=== PATIENT | female | born 1980 | race Caucasian/White ===

== ENCOUNTER 2021-06-30 12:26 | Outpatient (REF) | payer MEDICAID, SELFPAY ==
--- NOTE | 2021-07-06 12:53 | MHC.AU.ANO ---
Adult Audiological Evaluation Date of Visit: 06/30/21 Manager Security And Safety Used: Not Applicable Reason for Appointment: Referred for audiologic evaluation due to left ear tinnitus. Omaira reports a pulsatile like sound in the left ear which came on suddenly about 2 months ago and she intermittently hears a buzzing in the ear. She also sometimes feels a blocked sensation in the left ear and the right ear sound quality is reported to be clearer compared to the left. There is a history of ear infections as a child with one tympanic membrane perforated from a Q-tip when younger; however, Omaira does not remember which ear. Does patient feel they have a hearing loss?: Unsure If Yes, Which Ear?: Left Ear When Was Hearing Difficulty First Noticed?: Approximately 2 months ago. Has hearing been tested previously?: No Hearing Handicap Inventory: HHIE SCORE: 0 Based on HHIE score, patient has: No perceived hearing handicap Ear History: Recent Ear Drainage: As a child when tympanic membrane was perforated Family History of Hearing Loss?: Yes: Mother wears hearing aids Ear Infections in Childhood: Both Ears Bothersome Tinnitus/Ringing/Noises in Ears: Left Ear Ear used on the phone: Right Blocked/Full Sensation in Ear(s): Left Ear History of occupational noise exposure?: Occasional loud music History: History: No Medical History: Medical History: Fibromyalgia, Depression, Anxiety, Uterine Leiomyoma, History of Vitamin D Deficiency Medication List: Trazadone, Valacyclovir, Indomethacin, Pantoprazole sodium, Vitamin D2, Cyclobenzaprine, Duloxetine, Finasteride, Clotrimazole/Betamethasone dip, Lorazepam, Elocon Otoscopy: Right Ear: Unremarkable Left Ear: Mild scarring of the tympanic membrane Tympanometry: Tympanometry performed due to: To assess integrity of the middle ear system Right Ear: Normal Middle Ear System (Type A) Left Ear: Normal Middle Ear System (Type A) Otoacoustic Emissions Frequency Range Used: 1.6-8 kHz Right Ear Results: Present 1600, 2000, & 4000 Hz Reduced 3000 & 8000. Analysis: Present emissions suggest normal cochlear function Reduced/Absent emissions suggest cochlear dysfunction Left Ear Results: Present 1600, 2000, 0134-1764 Hz Reduced 3000 Hz. Analysis: Present emissions suggest normal cochlear function Reduced/Absent emissions suggest cochlear dysfunction Hearing Evaluation: Transducer(s) Used: Insert Earphones Bone Conduction Method: Conventional Audiometry Stimuli Used: Pure Tones Right Ear: Description of Hearing: Normal hearing thresholds 250-1000 Hz and 0028-8258 Hz with mild sensorineural hearing loss at 9901-2667 Hz. Left Ear: Description of Hearing: Normal hearing levels 250-1000 Hz and 0160-5886 Hz with mild sensorineural hearing loss at 2000 and 3000 Hz. Speech Recognition Threshold (SRT): Method Used: Monitored Live Voice Stimuli Used: Right Ear: 10 dB HL Left Ear: 10 dB HL Word Discrimination: Method: Recorded Lists Word Lists Used: NU-6 Right Ear: 92% at 50 dB HL Left Ear: 92% at 50 dB HL Interpretation of Results: There is a slightly notched configuration of the mild loss at 2000 and 3000 Hz. Discussed how this configuration may relate to hereditary factors given her mother's hearing loss or noise exposure. The muffled sound/blocked sensation of the left ear may relate to the scarring of the tympanic membrane. Discussed the theories of tinnitus and how this symptom increases with noise exposure, chronic pain, stress, and anxiety. Considered ENT consultation; however, since the loss is very mild and Omaira reports it is noticeable, but not causing her to have any difficulty functioning, it was decided to monitor hearing and symptoms with re-evaluation scheduled for 6 months. Recommendations: Audiologic re-evaluation is scheduled for 12/29/2021. If symptoms increase before that time, an earlier appointment should be scheduled and will likely advise medical consultation with an Nylon Mender. Diagnosis: Primary Diagnosis: H93.12 Tinnitus, Left Ear Secondary Diagnosis: H90.3 Bilateral Sensorineural Hearing Loss Services Performed: Comprehensive Audiological Evaluation (CPT 50276) Diagnostic Otoacoustic Emissions (CPT 32170, 26+TC) Tympanometry (CPT 17893) Signature: Provider: Pteer Sage, [facility]
== END 2021-06-30 12:27 | disposition home or self-care (01) ==
LOC: HO.SH 12:26
PROVIDERS: Visit Provider Internal Medicine Geriatric Medicine
DX: H93.12 Tinnitus, left ear (principal); H90.3 Sensorineural hearing loss, bilateral
CPT/HCPCS: 92557; 92567; 92588

== ENCOUNTER 2021-09-06 11:07 | Outpatient (REF) | payer MEDICAID, SELFPAY ==
--- NOTE | ~2021-09-06 | US_ITS ---
EXAMINATION: US ABDOMEN COMPLETE CLINICAL INFORMATION: Abdominal pain, satiety. COMPARISON: Abdominal ultrasound 02/05/2016 TECHNIQUE: Real-time imaging of the abdominal viscera. FINDINGS: PANCREAS: The visualized pancreas is normal in appearance. The tail is obscured by overlying bowel gas. ABDOMINAL AORTA: Visualized aorta is normal in appearance. INFERIOR VENA CAVA: Visualized portions are normal. LIVER: The liver is mildly enlarged, measuring 19.3 cm in length. It has increased echogenicity. The liver contour is normal. No focal hepatic lesion. There is no intrahepatic biliary duct dilatation seen. GALLBLADDER: The gallbladder is physiologically distended without evidence of stones, sludge, polyps, wall thickening or pericholecystic fluid. COMMON BILE DUCT: Normal in caliber measuring 0.5 cm in diameter. RIGHT KIDNEY: No hydronephrosis. No renal calculi or focal parenchymal lesions. The kidney measures 12.8 cm in maximum dimension. LEFT KIDNEY: No hydronephrosis. No renal calculi or focal parenchymal lesions. The kidney measures 11.1 cm in maximum dimension. SPLEEN: The spleen measures 10.8 cm in maximum dimension. FREE FLUID: None. US/US abdomen complete IMPRESSION: The liver is mildly enlarged and demonstrates increased echogenicity. This may reflect some degree of fatty infiltration. No focal hepatic lesion.
== END 2021-09-06 11:08 | disposition home or self-care (01) ==
LOC: HO.US 11:07
PROVIDERS: PCP Internal Medicine Geriatric Medicine; Visit Provider Internal Medicine Geriatric Medicine
DX: R10.84 Generalized abdominal pain (principal); R68.81 Early satiety
CPT/HCPCS: 76700

== ENCOUNTER 2023-02-08 14:44 | Outpatient (REF) | payer MEDICAID, SELFPAY ==
--- NOTE | ~2023-02-08 | US_ITS ---
EXAMINATION: US SOFT TISSUE HEAD/NECK CLINICAL INFORMATION: Left neck mass. COMPARISON: None available. TECHNIQUE: Linear transducer grayscale and color Doppler examination of the left lateral posterior neck. FINDINGS: Palpable abnormality corresponds to a normal-appearing left cervical lymph node. This measures 1 x 0.4 x 1 cm in sagittal AP and transverse dimension. This demonstrates normal ultrasound morphology and flow. US/US soft tiss head and/or neck IMPRESSION: Palpable abnormality corresponds to a normal-appearing left cervical lymph node.
== END 2023-02-08 14:45 | disposition home or self-care (01) ==
LOC: HO.US 14:44
PROVIDERS: PCP Internal Medicine Geriatric Medicine; Visit Provider Internal Medicine Geriatric Medicine
DX: R22.1 Localized swelling, mass and lump, neck (principal)
CPT/HCPCS: 76536

== ENCOUNTER 2023-07-05 12:10 | Outpatient (REF) | payer MEDICAID, SELFPAY ==
[2023-07-05 13:36] LABS: MANUAL DIFF FLAG NO
[2023-07-05 13:43] LABS: Basophils Percent Auto 0.6 % (0-2); Eosinophils Absolute Auto 0.1 X10*3/uL (0.0-0.4); Eosinophils Percent Auto 1.3 % (0-4); Hemoglobin 12.6 g/dl (12.0-16.0); Imm Gran Abs Auto 0.01 X10*3/uL (0.00-0.03); Imm Gran Pct Auto 0.1 % (0.0-0.4); Lymphocytes Absolute Auto 2.1 X10*3/uL (1.2-4.9); Lymphocytes Percent Auto 31.7 % (20-40); Mean Corpuscular HGB Conc 34.1 g/dl (31.0-35.0); Mean Corpuscular Hemoglobin 29.4 pg (27.0-33.0); Mean Corpuscular Volume 86.2 fL (80.0-98.0); Mean Platelet Volume 10.5 fL (9.4-12.3); Monocytes Absolute Auto 0.5 X10*3/uL (0.1-1.2); Monocytes Percent Auto 7.4 % (2-11); Neutrophils Percent Auto 58.9 % (45-73); Platelet Count 244 X10*3/uL (160-400); Red Blood Count 4.29 X10*6/uL (4.20-5.50); Red Cell Distribution Width 12.9 % (11.0-16.0); White Blood Count 6.7 X10*3/uL (4.8-10.8)
[2023-07-05 14:47] LABS: Iron 131 mcg/dL (30-160); Percent Iron Saturation 36 % (15-50); Total Iron Binding Capacity 366 mcg/dL (228-428); Unsaturated Iron Binding 235 ug/dL
[2023-07-05 14:54] LABS: Vitamin D 25-OH Total 27.2 ng/mL (>30)
== END 2023-07-05 12:11 | disposition home or self-care (01) ==
LOC: HO.HHCL 12:10
PROVIDERS: Visit Provider Internal Medicine Geriatric Medicine
DX: D50.0 Iron deficiency anemia secondary to blood loss (chronic) (principal); E55.9 Vitamin D deficiency, unspecified
CPT/HCPCS: 36415; 82306; 83540; 85025

== ENCOUNTER 2023-11-28 12:51 | Outpatient (REF) | payer MEDICAID, SELFPAY ==
--- NOTE | ~2023-11-28 | XR_ITS ---
EXAMINATION: XR HIP, LEFT CLINICAL INFORMATION: Fell down one month ago, left hip injury and persistent pain COMPARISON: None available. TECHNIQUE: Two views of the left hip. FINDINGS: BONES: Bony structures are intact. There is no focal bone destruction or periosteal reaction seen. JOINTS: Alignment of hip joint is normal. SOFT TISSUE: Soft tissue is normal. No radiopaque foreign body or abnormal air collection is seen. XR/XR hip LT min 2V IMPRESSION: Normal x-ray of left hip. No fracture or dislocation or signs of avascular necrosis are seen.
== END 2023-11-28 12:52 | disposition home or self-care (01) ==
LOC: HO.HHCX 12:51
PROVIDERS: Visit Provider Internal Medicine Geriatric Medicine
DX: M25.552 Pain in left hip (principal); Z91.81 History of falling
CPT/HCPCS: 73502

== ENCOUNTER 2024-05-31 15:05 | Outpatient (REF) | payer MEDICAID, SELFPAY ==
--- NOTE | ~2024-05-31 | XR_ITS ---
EXAMINATION: XR KNEE, LEFT CLINICAL INFORMATION: Medial pain left knee. Pes bursitis suspected. COMPARISON: 03/31/2020. TECHNIQUE: Four views of the left knee. FINDINGS: No fracture, dislocation, or suspicious bone abnormalities. Joint spaces in the medial, lateral, and patellofemoral compartment are preserved. No significant arthritis. Patella normally aligned. Region of the medial tibia appears normal. No joint effusion. Normal soft tissues. XR/XR knee LT 4V IMPRESSION: Normal left knee. Electronically signed by: Quinten Davison MD 05/31/2024 04:12 PM EDT
[2024-06-01 08:43] LABS: Follicle Stimulating Hormone 3.6 mIU/mL; Lutenizing Hormone 1.8 mIU/mL
== END 2024-05-31 15:06 | disposition home or self-care (01) ==
LOC: HO.HHCL 15:05
PROVIDERS: Visit Provider Internal Medicine Geriatric Medicine
DX: N95.1 Menopausal and female climacteric states (principal); M70.52 Other bursitis of knee, left knee
CPT/HCPCS: 36415; 73564; 83001; 83002

== ENCOUNTER → 2024-05-31 15:19 | Outpatient (BNV) | payer MEDICAID, SELFPAY | PROVIDERS: Visit Provider Radiology Diagnostic Radiology | DX: M70.52 Other bursitis of knee, left knee (principal) | CPT/HCPCS: 73564 ==

== ENCOUNTER 2024-10-09 12:09 | Outpatient (REF) | payer MEDICAID, SELFPAY ==
--- NOTE | ~2024-10-09 | US_ITS ---
EXAMINATION: MM DIAGNOSTIC DIGITAL BREAST TOMOSYNTHESIS, BILATERAL Bilateral Limited axilla ultrasound. CLINICAL INFORMATION: Bilateral axillary lumps. COMPARISON: Mammography: Comparison is made with relevant prior exams. TECHNIQUE: Digital breast mammography with tomosynthesis is performed in both the craniocaudal and mediolateral oblique views along with computer-aided detection (CAD). Limited bilateral axillary ultrasound. FINDINGS: There are scattered areas of fibroglandular density (ACR BI-RADS breast composition Category b). Bilateral reduction mammoplasty. BB markers in the bilateral axillary regions at site of palpable lumps without underlying abnormality. There are no significant masses, abnormal calcifications, or other abnormalities. Targeted color Doppler ultrasound scanning in the bilateral axillary regions area of patient's palpable lumps demonstrates normal axillary tissue. There is no sonographic abnormality. Results are provided to the patient at time of visit by the technologist. US/US breast BI limited mamm only IMPRESSION: No mammographic or sonographic abnormality to account for the patient's bilateral axillary palpable lumps. Recommend clinical evaluation and follow-up. ASSESSMENT: BI-RADS BI-RADS 1 - Negative RECOMMENDATION: 1 year F/U This patient's information was entered into a reminder system with a target due date for their next mammogram. Electronically signed by: Naomie Barnard DO 10/09/2024 01:47 PM [facility]
--- OUTSIDE RECORDS SUMMARY | 2024-10-09 14:31 | XMS_ITS | Encounter Summary ---
Author Organization [employer] Address [address] [place] [address] Care Team Providers Care Production Packager Name Role Phone Name, Tay DUARTE Primary Care Provider [phone] Reason for Visit * Reason Comments Med Refill Encounter Details Date Type Department Care Team ([facility] st Contact Info) Description 10/18/2023 Refill [facility] [address], [place] [id number] Name, MD Tay [address] [place] [address] Social History Tobacco Use Types Packs/Day Years Used Date Smoking Tobacco: Never Passive Smoke Exposure: Never Smokeless Tobacco: Never Alcohol Use Standard Drinks/Week Comments Yes 2 (1 standard drink = 0.6 oz pur e alcohol) Housing Stability Answer Date Recorded What is your housing situation today? I have demetrius jason 06/27/[address] you li ve. Do you have problems with any of the following? None of the above 06/27/2023 Food Insecurity Answer Date Recorded Within the past 12 months, y ou worried that your food would run out before you got money to buy more: Never True 06/27/2023 Within the past 12 months,th e food you bought just didn't last and you didn't have enough money to get more: Never True Transportation Answer Date Recorded In the past 12 months, has l ack of transportation kept you from medical appts, meetings, work or from getting things needed for daily living? No 06/27/2023 Utilities Answer Date Recorded In the past 12 months, has t he electric, gas, oil or water company threatened to shut off services in your home? No 06/27/2023 Depression Answer Date Recorded Patient Health Questionnaire-2 Score 0 10/27/2022 Comments Unknown Sex and Gender Information Value Date Recorded Sex Assigned at Female 07/11/2022 10:23 AM EDT Legal Sex Female 10:23 AM EDT Gender Identity Female 07/11/2022 10:23 AM EDT Sexual Orientation Straight 07/11/2022 10 :23 AM EDT documented as of this encounter Plan of Treatment Upcoming Encounters Date Type Department Care Team (Late st Contact Info) Description 12/13/2024 4:00 PM EDT Office Visit [facility] [address] [place] [address] Name, MD Tay [address] [place] [address] documented as of this encounter Visit Diagnoses Not on filedocumented in this encounter Care Teams Production Packager Relationship Specialty Start Date End Date NameTay MD [address] [place] [id number] PCP - General Family Medicine 02/01/16 documented as of this encounter
--- OUTSIDE RECORDS SUMMARY | 2024-10-09 14:31 | XMS_ITS | Encounter Summary ---
Author Organization [employer] Address [address] [place] [address] Care Team Providers Care Greenstone Polisher Operator Name Role Phone Name, Tay DUARTE Primary Care Provider [phone] Reason for Visit * Reason Onset Date Comments Med Change Request 10/18/2023 Encounter Details Date Type Department Care Team ([facility] st Contact Info) Description 10/18/2023 Telephone [facility] [address] [place] [address] Name, MD Tay [address] [place] [address] Med Change Request Social History Tobacco Use Types Packs/Day Years [...] AM EDT documented as of this encounter Miscellaneous Notes * Telephone Encounter - Olvin Guerra RN - 10/19/2023 10:06 AM EST T/C to pharmacy for below message, Pharmacy states pt. Already picked up ,medication. T/C to pt. For above message, pt. Confirmed that she picked up medication. * Telephone Encounter - Adri hTompson - 10/18/2023 11:28 AM EST Tc from pt states lactulose (Chronulac) 10 GM/15ML solution is not covered by insurance and is requesting an alternative. documented in this encounter Plan of Treatment Upcoming Encounters Date Type Department Care Team (Late st Contact Info) Description 12/13/2024 4:00 PM EDT Office Visit [facility] [address] [place] [id number] Name, MD Tay [address] [place] [address] documented as of this encounter Visit Diagnoses Not on filedocumented in this encounter Care Teams Greenstone Polisher Operator Relationship Specialty Start Date End Date Name, MD Tay [address] [place] [id number] PCP - General Family Medicine 02/01/16 documented as of this encounter
--- OUTSIDE RECORDS SUMMARY | 2024-10-09 14:31 | XMS_ITS | Encounter Summary ---
Author Organization [employer] Address [address] [place] [address] Care Team Providers Care Director Sterile Processing Name Role Phone Name, Tay DUARTE Primary Care Provider [phone] Reason for Visit * Reason Onset Date Comments chart prep 09/23/2024 Encounter Details Date Type Department Care Team (Late st Contact Info) Description 09/23/2024 Telephone [facility] [address] [place] [address] Massimo Maradiaga MA chart prep Social History Tobacco Use Types Packs/Day Years Used Date Smoking Tobacco: Never Passive Smoke Exposure: Never Smokeless Tobacco: Never Alcohol Use Standard Drinks/Week Comments Yes 2 (1 standard drink = 0.6 oz pur e alcohol) Depression Answer Date Recorded Patient Health Questionnaire-9 Score 8 05/31/2024 Patient Health Questionnaire-9 Score 8 05/31/2024 Last PHQ-9: Questionnaire Data Not on file 0 05/31/2024 Housing Stability Answer Date Recorded What is your housing situation today? I have demetrius jason 11/28/[address] you li ve. Do you have problems with any of the following? None of the above 11/28/2023 Food Insecurity Answer Date Recorded Within the past 12 months, y ou worried that your food would run out before you got money to buy more: Never True 11/28/2023 Within the past 12 months,th e food you bought just didn't last and you didn't have enough money to get more: Never True Transportation Answer Date Recorded In the past 12 months, has l ack of transportation kept you from medical appts, meetings, work or from getting things needed for daily living? No 11/28/2023 Utilities Answer Date Recorded In the past 12 months, has t he electric, gas, oil or water company threatened to shut off services in your home? No 11/28/2023 Depression Answer Date Recorded Patient Health Questionnaire-2 Score 2 05/31/2024 Comments Unknown Sex and Gender Information Value Date Recorded Sex Assigned at Female 07/11/2022 10:23 AM EDT Legal Sex Female 10:23 AM EDT Gender Identity Female 07/11/2022 10:23 AM EDT Sexual Orientation Straight 07/11/2022 10 :23 AM EDT documented as of this encounter Miscellaneous Notes * Telephone Encounter - Massimo Maradiaga MA - 09/23/2024 10:58 AM EST Chart Prep Labs: done Images: done Vaccines due: yes Referrals: complete Screenings: colonoscopy , mammogram Overdue care gaps: [employer] documented in this encounter Plan of Treatment Upcoming Encounters Date Type Department Care Team (Late st Contact Info) Description 12/13/2024 4:00 PM EDT Office Visit [facility] [address] [place] [address] Name, MD Tay [address] [place] [address] documented as of this encounter Visit Diagnoses Not on filedocumented in this encounter Additional Health Concerns Assessment Noted Time PHQ-9 Depression Total Score: 8 05/31/20 24 3:07 PM EDT documented as of this encounter Care Teams Director Sterile Processing Relationship Specialty Start Date End Date Name, MD Tay [address] [place] [id number] PCP - General Family Medicine 02/01/16 documented as of this encounter
--- OUTSIDE RECORDS SUMMARY | 2024-10-09 14:31 | XMS_ITS | Encounter Summary ---
Author Organization [employer] [facility] Address [address] [place] [address] 7[address] [place] [address] Care Team Providers Care Outsole Skiver Name Role Phone Tay Gregory MD Primary Care Provider [phone] Reason for Referral * Imaging (Routine) - Authorized Specialty Diagnoses / Procedures Referred By Contac t Referred To Contact Radiology Diagnoses Axillary mass, left Procedures BI Mammogram Diagnostic Tomosynthesis Bilateral Tay Gregory MD [address] [place] [address] Phone: tel: fax: [address] Phone: tel: fax: Referral ID Status Reason Start Date Expiration Date V isits Requested Visits Authorized [id number] Authorized 10/04/2024 10/04/2025 1 1 * Imaging (Routine) - Authorized Specialty Diagnoses / Procedures Referred By Contac t Referred To Contact Radiology Diagnoses Axillary mass, left Procedures US Axilla Alone Left Tay Gregory MD [address] [place] [address] Phone: tel: fax: [address] Phone: tel: fax: Referral ID Status Reason Start Date Expiration Date V isits Requested Visits Authorized [id number] Authorized 10/01/2024 10/01/2025 1 1 Reason for Visit * Reason Comments Follow-up Encounter Details Date Type Department Care Team (Late st Contact Info) Description 10/01/2024 11:15 AM EST Office Visit [facility] [address] [place] [address] Name, MD Tay [address] [place] [address] Axillary mass, left (Primary Dx); Hot flashes; Fibromyalgia; Body aches; Dry eye Social History Tobacco Use Types Packs/Day Years [...] AM EDT documented as of this encounter Last Filed Vital Signs Vital Sign Reading Time Taken Comments Blood Pressure 130/82 10/01/2024 11:00 AM EST Pulse 63 10/01/2024 11:00 AM EST Temperature 35.3 ??C (95.6 ??F) 10/01/2024 11:[address] Respiratory Rate 16 10/01/2024 11:00 AM EST Oxygen Saturation 98% 10/01/2024 11:00 AM EST Inhaled Oxygen Concentration - - Weight 88 kg (194 lb) 10/01/2024 11:00 AM EST Height 162.6 cm (5' 4 ) 10/01/2024 11:00 AM EST Body Mass Index 33.3 10/01/2024 11:00 AM EST documented in this encounter Progress Notes * Tay Gregory MD - 10/01/2024 11:15 AM EST Subjective Patient ID: Omaira Serna is a 44 y.o. female who presents for Follow-up. Patient comes for a follow-up visit and we discussed several issues. We discussed results of her most recent blood work. FSH and LH are normal. She continues to have hot flashes on and off. I explained to her symptoms could be due to premenopause. We discussed possible treatments including hormone replacement therapy. She would like to avoid any hormone replacement therapy for now. She tells me today symptoms are not severe enough for treatment. Patient complains of generalized aches and pains. She has previous negative rheumatologic workup. Today she tells me her eyes are sometimes dry. She denies any dry mouth. She wonders if she has Sjogren's syndrome. I have never tested specifically for that. Patient also complains of a left axillary mass that is soft on palpation. She has this mass for about a year and it has not changed in size. She is up-to-date with her mammograms and was normal at [facility] in October of last year. Review of Systems Constitutional: Negative for chills and fever. HENT: Negative for sore throat. Respiratory: Negative for cough, shortness of breath and wheezing. Cardiovascular: Negative for chest pain, palpitations and leg swelling. Gastrointestinal: Negative for abdominal pain. Musculoskeletal: See HPI Visit Vitals BP 130/82 (BP Location: Right arm, Patient Position: Sitting, BP Cuff Size: Adult) Pulse 63 Temp 95.6 ??F (35.3 ??C) (Temporal) Resp 16 Ht 5' 4 (1.626 m) Wt 194 lb (88 kg) SpO2 98% BMI 33.30 kg/m?? Smoking Status Never BSA 1.99 m?? Objective Physical Exam Constitutional: Appearance: Normal appearance. Cardiovascular: Rate and Rhythm: Normal rate and regular rhythm. Heart sounds: No murmur heard. No gallop. Pulmonary: Effort: Pulmonary effort is normal. No respiratory distress. Breath sounds: Normal breath sounds. No wheezing. Chest: Comments: Breast are symmetrical, no skin abnormalities, she has a palpable soft tissue mass in theleft axillary area that is consistent with a lipoma. Musculoskeletal: General: Tenderness present. No swelling. Right lower leg: No edema. Left lower leg: No edema. Neurological: Mental Status: She is alert. Assessment/Plan Diagnoses and all orders for this visit: Axillary mass, left Comments: I will send her for ultrasound. Further recommendation based on results. Televisit after ultrasoundwill be scheduled. Orders: - US Axilla Alone Left; Future Hot flashes Comments: The patient is not interested in any treatment for now. Fibromyalgia Comments: I refilled her Celebrex, Flexeril, duloxetine as requested. Symptoms could be consistent with fibromyalgia. I will do additional autoimmune workup that I have not done in the past as listed below. Body aches - Chandrika-1 Antibody; Future - Sjogren's Antibodies (SS-A,SS-B); Future Dry eye - Chandrika-1 Antibody; Future - Sjogren's Antibodies (SS-A,SS-B); Future Other orders - celecoxib (CeleBREX) 200 MG capsule; TAKE 1 CAPSULE(200 MG) BY MOUTH TWICE DAILY - cyclobenzaprine (Flexeril) 10 MG tablet; Take 1 tablet (10 mg) by mouth every 8 (eight) hours. - DULoxetine (Cymbalta) [address] capsule; Take 1 capsule (60 mg) by mouth Once per day. Do not crush or chew. - cholecalciferol (Vitamin D3) 25 MCG (1000 UT) tablet; TAKE 1 TABLET BY MOUTH EVERY MORNING documented in this encounter Miscellaneous Notes * Addendum Note - Tay Gregory MD - 10/01/2024 11:15 AM ESTAddended by: TAY GREGORY on: 10/04/2024 07:00 AM Modules accepted: Orders documented in this encounter Plan of Treatment Upcoming Encounters Date Type Department Care Team (Late st Contact Info) Description 12/13/2024 4:00 PM EDT Office Visit [facility] [address] [place] [address] Nicolle, MD Tay [address] [place] [address] Scheduled Orders Name Type Priority Associated Diagnoses Orde r Schedule Chandrika-1 Antibody Lab Routine Body aches Dry eye Expected: 10/01/2024 (Approximate), Expires: 10/01/2025 Sjogren's Antibodies (SS-A,SS-B) Lab Routine Body aches Dry eye Expected: 10/01/2024 (Approximate), Expires: 10/01/2025 US Axilla Alone Left Imaging Routine Axillary mass, left Expected: 10/01/2024, Expires: 10/01/2025 documented as of this encounter Procedures Procedure Name Priority Date/Time Associated Diagnosis Comments BI US BREAST LIMITED BILATERAL Routine 10/09/2024 1:15 PM EST BI MAMMOGRAM DIAGNOSTIC TOMOSYNTHESIS BILATERAL Routine 10/09/2024 12:45 PM EST Axillary mass, left documented in this encounter Results * BI US Breast Limited Bilateral (10/09/2024 1:15 PM EST) Anatomical Region Laterality Modality Breast Bilateral Ultrasound 10/09/2024 1:15 PM EST Narrative 10/09/2024 1:50 PM EST ? [facility] ? [address] ?[place] [address] ? Ultrasound Report ? Signed ? Patient: Serna Whyte,Omaira K ?MR#: [id number] ?? [id number] ? : 1980 ?Acct:[id number] ? Age/Sex: 44 / F ?ADM Date: 01/29/25 ? Loc: HO.MAMMO ? Attending Dr: Tay Gregory MD ? Ordering Physician: Tay Gregory MD ?? Date of Service: 10/09/24 ?? Procedure(s): US breast BI limited mamm only ?? Accession Number(s): [id number] ? cc: Tay Gregory MD ? EXAMINATION: ?? MM DIAGNOSTIC DIGITAL BREAST TOMOSYNTHESIS, BILATERAL ?? Bilateral Limited axilla ultrasound. ? CLINICAL INFORMATION: ? Bilateral axillary lumps. ? COMPARISON: ?? Mammography: Comparison is made with relevant prior exams. ? TECHNIQUE: ?? Digital breast mammography with tomosynthesis is performed in both the ?? craniocaudal and mediolateral oblique views along with computer-aided ?? detection (CAD). ?? Limited bilateral axillary ultrasound. ? FINDINGS: ?? There are scattered areas of fibroglandular density (ACR BI-RADS breast ?? composition Category b). ?? Bilateral reduction mammoplasty. ?? BB markers in the bilateral axillary regions at site of palpable lumps ?? without underlying abnormality. ?? There are no significant masses, abnormal calcifications, or other ?? abnormalities. ? Targeted color Doppler ultrasound scanning in the bilateral axillary ?? regions area of patient's palpable lumps demonstrates normal axillary ?? tissue. There is no sonographic abnormality. ? Results are provided to the patient at time of visit by the ?? technologist. ? US/US breast BI limited mamm only ?? IMPRESSION: ?? No mammographic or sonographic abnormality to account for the patient's ?? bilateral axillary palpable lumps. Recommend clinical evaluation and ?? follow-up. ? ASSESSMENT: ? BI-RADS BI-RADS 1 - Negative ? RECOMMENDATION: ?? 1 year F/U ? This patient's information was entered into a reminder system with a ?? target due date for their next mammogram. ? Electronically signed by: ??Naomie Barnard DO ??10/09/2024 01:47 PM EST ?? RP ? Dictated By: ?Naomie Barnard DO ? Signed By: ?<Electronically signed by Naomie Barnard, DO in OV> ? 10/09/24 1347 ? DD/ 1315 ? TD/TT: 10/09/24 1343 ? Faculty Research Assistant: ? Procedure Note Donotuseinterpreter, Image - 10/09/2024 [facility] [address] [place] [address] Ultrasound Report Signed Patient: Omaira Yung KMR#: [id number] : 1980Acct:[id number] Age/Sex: 44 / FADM Date: 10/09/24 Loc: HO.MAMMO Attending Dr: Tay Gregory MD Ordering Physician: Tay Gregory MD Date of Service: 10/09/24 Procedure(s): US breast BI limited mamm only Accession Number(s): [id number] cc: Tay Gregory MD EXAMINATION: MM DIAGNOSTIC DIGITAL BREAST TOMOSYNTHESIS, BILATERAL Bilateral Limited axilla ultrasound. CLINICAL INFORMATION: Bilateral axillary lumps. COMPARISON: Mammography: Comparison is made with relevant prior exams. TECHNIQUE: Digital breast mammography with tomosynthesis is performed in both the craniocaudal and mediolateral oblique views along with computer-aided detection (CAD). Limited bilateral axillary ultrasound. FINDINGS: There are scattered areas of fibroglandular density (ACR BI-RADS breast composition Category b). Bilateral reduction mammoplasty. BB markers in the bilateral axillary regions at site of palpable lumps without underlying abnormality. There are no significant masses, abnormal calcifications, or other abnormalities. Targeted color Doppler ultrasound scanning in the bilateral axillary regions area of patient's palpable lumps demonstrates normal axillary tissue. There is no sonographic abnormality. Results are provided to the patient at time of visit by the technologist. US/US breast BI limited mamm only IMPRESSION: No mammographic or sonographic abnormality to account for the patient's bilateral axillary palpable lumps. Recommend clinical evaluation and follow-up. ASSESSMENT: BI-RADS BI-RADS 1 - Negative RECOMMENDATION: 1 year F/U This patient's information was entered into a reminder system with a target due date for their next mammogram. Electronically signed by: Naomie Barnard DO 10/09/2024 01:47 PM [facility] Dictated By: Naomie Barnard DO Signed By: <Electronically signed by Naomie Barnard DO in OV> 10/09/24 1347 DD/ 1315 TD/TT: 10/09/24 1343 Faculty Research Assistant: us Tay PABLO US PROCEDURES Edited Result - Final * BI Mammogram Diagnostic Tomosynthesis Bilateral (10/09/2024 12:45 PM EST) Anatomical Region Laterality Modality Breast Bilateral Mammography 10/09/2024 12:4 5 PM EST Narrative 10/09/2024 1:50 PM EST ? [facility] ? [address] ?[place], [place] [address] ? Mammography Report ? Signed ? Patient: Omaira Yung ?MR#: [id number] ?? [id number] ? : 1980 ?Acct:[id number] ? Age/Sex: 44 / F ?ADM Date: 10/09/24 ? Loc: HO.MAMMO ? Attending Dr: Tay Name MD ? Ordering Physician: Name,Tay MD ?Results: 1Negative ? Date of Service: 10/09/24 ?Follow Up: 1 Year From Orig ?? inal Mammogram ? Procedure(s): MM tomosynthesis diagnostic BI ?? Accession Number(s): [id number] ? cc: Name,Tay DUARTE ? EXAMINATION: ?? MM DIAGNOSTIC DIGITAL BREAST TOMOSYNTHESIS, BILATERAL ?? Bilateral Limited axilla ultrasound. ? CLINICAL INFORMATION: ? Bilateral axillary lumps. ? COMPARISON: ?? Mammography: Comparison is made with relevant prior exams. ? TECHNIQUE: ?? Digital breast mammography with tomosynthesis is performed in both the ?? craniocaudal and mediolateral oblique views along with computer-aided ?? detection (CAD). ?? Limited bilateral axillary ultrasound. ? FINDINGS: ?? There are scattered areas of fibroglandular density (ACR BI-RADS breast ?? composition Category b). ?? Bilateral reduction mammoplasty. ?? BB markers in the bilateral axillary regions at site of palpable lumps ?? without underlying abnormality. ?? There are no significant masses, abnormal calcifications, or other ?? abnormalities. ? Targeted color Doppler ultrasound scanning in the bilateral axillary ?? regions area of patient's palpable lumps demonstrates normal axillary ?? tissue. There is no sonographic abnormality. ? Results are provided to the patient at time of visit by the ?? technologist. ? MM/MM tomosynthesis diagnostic BI ?? IMPRESSION: ?? No mammographic or sonographic abnormality to account for the patient's ?? bilateral axillary palpable lumps. Recommend clinical evaluation and ?? follow-up. ? ASSESSMENT: ? BI-RADS BI-RADS 1 - Negative ? RECOMMENDATION: ?? 1 year F/U ? This patient's information was entered into a reminder system with a ?? target due date for their next mammogram. ? Electronically signed by: ??Naomie Barnard DO ??10/09/2024 01:47 PM EST ? Dictated By: ?Naomie Barnard DO ? Signed By: ?<Electronically signed by Naomie Barnard, DO in OV> ? 10/09/24 1347 ? DD/ 1245 ? TD/TT: 10/09/24 1313 ? Faculty Research Assistant: ? Procedure Note Jose Angel, Avis - 10/09/2024 [place] [facility] [address] [place], [place] [address] Mammography Report Signed Patient: Serna Omaira Whyte KMR#: [id number] : 1980Acct:[id number] Age/Sex: 44 / FADM Date: 10/09/24 Loc: HO.MAMMO Attending Dr: Tay Gregory MD Ordering Physician: Tay Gregoryesults: 1Negative Date of Service: 10/09/24Follow Up: 1 Year From Orig ina Mammogram Procedure(s): MM tomosynthesis diagnostic BI Accession Number(s): [id number] cc: Tay Gregory MD EXAMINATION: MM DIAGNOSTIC DIGITAL BREAST TOMOSYNTHESIS, BILATERAL Bilateral Limited axilla ultrasound. CLINICAL INFORMATION: Bilateral axillary lumps. COMPARISON: Mammography: Comparison is made with relevant prior exams. TECHNIQUE: Digital breast mammography with tomosynthesis is performed in both the craniocaudal and mediolateral oblique views along with computer-aided detection (CAD). Limited bilateral axillary ultrasound. FINDINGS: There are scattered areas of fibroglandular density (ACR BI-RADS breast composition Category b). Bilateral reduction mammoplasty. BB markers in the bilateral axillary regions at site of palpable lumps without underlying abnormality. There are no significant masses, abnormal calcifications, or other abnormalities. Targeted color Doppler ultrasound scanning in the bilateral axillary regions area of patient's palpable lumps demonstrates normal axillary tissue. There is no sonographic abnormality. Results are provided to the patient at time of visit by the technologist. MM/MM tomosynthesis diagnostic BI IMPRESSION: No mammographic or sonographic abnormality to account for the patient's bilateral axillary palpable lumps. Recommend clinical evaluation and follow-up. ASSESSMENT: BI-RADS BI-RADS 1 - Negative RECOMMENDATION: 1 year F/U This patient's information was entered into a reminder system with a target due date for their next mammogram. Electronically signed by: Naomie Barnard DO 10/09/2024 01:47 PM [facility] Dictated By: Naomie Barnard DO Signed By: <Electronically signed by Naomie Barnard DO in OV> 10/09/24 1347 DD/ 1245 TD/TT: 10/09/24 1313 Faculty Research Assistant: Tay Gregory MD IMG BI PROCEDURES Edited Result - Final documented in this encounter Visit Diagnoses Diagnosis Axillary mass, left- Primary Hot flashes Fibromyalgia Unspecified myalgia and myositis Body aches Generalized pain Dry eye documented in this encounter Additional Health Concerns Assessment Noted Time PHQ-9 Depression Total Score: 8 05/31/20 24 3:07 PM EDT documented as of this encounter Care Teams Outsole Skiver Relationship Specialty Start Date End Date Name, MD Tay [address] [place] [address] PCP - General Family Medicine 02/01/16 documented as of this encounter
--- OUTSIDE RECORDS SUMMARY | 2024-10-09 14:31 | XMS_ITS | Encounter Summary ---
Author Organization [employer] Address [address] [place] [address] Care Team Providers Care Inspector Scales Name Role Phone Name, Tay DUARTE Primary Care Provider [phone] Encounter Details Date Type Department Care Team (Late st Contact Info) Description 10/18/2023 Abstract [facility] [address] [place], [place] [id number] Name, MD Tay [address] [place], [place] [phone] Social History Tobacco Use Types Packs/Day Years [...] Description 12/13/2024 4:00 PM EDT Office Visit [facility] [address] [place] [address] Name, MD Tay [address] [place] [address] documented as of this encounter Visit Diagnoses Not on filedocumented in this encounter Care Teams Inspector Scales Relationship Specialty Start Date End Date NameTay MD [address] [place] [address] PCP - General Family Medicine 02/01/16 documented as of this encounter
--- OUTSIDE RECORDS SUMMARY | 2024-10-09 14:31 | XMS_ITS | Encounter Summary ---
Author Organization [employer] Address [address] [place] [address] Care Team Providers Care Deputy Court Name Role Phone Name, Tay DUARTE Primary Care Provider [phone] Encounter Details Date Type Department Care Team ([facility] st Contact Info) Description 10/03/2024 Telephone [employer] [facility] [address] [place], [place] [phone] Name, MD Tay [address] [place] [address] Social History Tobacco Use Types Packs/Day Years [...] encounter Miscellaneous Notes * Telephone Encounter - Jessica Kearns - 10/03/2024 2:46 PM EST [place]coming [place] [facility] [place] for Us Axilla order to be update to Diagnostic Mammogram Bilateral& Us Breast Left . Please review and advise . documented in this encounter Plan of Treatment Upcoming Encounters Date Type Department Care Team (Late st Contact Info) Description 12/13/2024 4:00 PM EDT Office Visit [facility] [address] [place] [address] Name, MD Tay [address] [place] [address] documented as of this encounter Visit Diagnoses Not on filedocumented in this encounter Additional Health Concerns Assessment Noted Time PHQ-9 Depression Total Score: 8 05/31/20 24 3:07 PM EDT documented as of this encounter Care Teams Deputy Court Relationship Specialty Start Date End Date Name, MD Tay [address] [place] [address] PCP - General Family Medicine 02/01/16 documented as of this encounter
--- OUTSIDE RECORDS SUMMARY | 2024-10-09 14:31 | XMS_ITS | Clinical Summary ---
Author Organization [employer] Address [address] [facility] 7t [place] [address] Care Team Providers Care Tree Fruit And Nut Crops Farmer Name Role Phone Name, Tay DUARTE Primary Care Provider [phone] Allergies No known active allergies Medications traZODone (Desyrel) 50 MG tablet TAKE 1/2 TO 1 TABLET BY MOUTH AT BEDTIME 10/13/19 23 Active LORazepam (Ativan) 0.5 MG tablet Take 0.5 mg by mouth if needed each day. 10/13/19 23 Active LORazepam (Ativan) 0.25 mg split tablet take 1 tablet by oral route twice daily as needed AM and 4pm Active traZODone (Desyrel) 50 MG tablet Take 1 tablet by mouth at bed time. 02/16/20 18 Active betamethasone valerate (Valisone) 0.1 % cream Apply topically 2 times daily. 45 g 2 01/20/20 23 Active ferrous gluconate (Fergon) 324 (38 Fe) MG tablet Take 1 pill every Monday, Monday, and Monday. Take with a full glass of water or Vit C containing juice, and ideally 1 hour before a meal or 2 hours after a meal 36 tablet 01/20/20 23 Active fluconazole (Diflucan) 150 MG tablet Take 1 tablet (150 mg) by mouth 1 (one) time per week. 4 tablet 07/05/20 23 Active lidocaine (Xylocaine) 5 % ointment Apply topically if needed for mild pain. 50 g 1 10/18/19 24 025 Active mometasone (Elocon) 0.1 % ointment Apply topically Once per day. 45 g 3 02/02/20 24 05/24/2 025 Active Multiple Vitamin (multivitamin) capsule Take 1 capsule by mouth Once per day. 30 capsule 11 02/02/20 24 025 Active triamcinolone (Kenalog) 0.1 % creamIndicatio ns:Nummular dermatitis,Monsivais d dermatitis Apply topically if needed in the morning and at bedtime (pain and swelling). Mix with Cerave 80 g 2 02/09/20 24 Active hydroquinone 4 % creamIndicatio ns:Melasma Apply topically 2 times daily. 28.35 g 1 02/09/20 24 025 Active pantoprazole (ProtoNix) 40 MG EC tabletIndicati ons:Pes anserinus bursitis of left knee Take 1 tablet (40 mg) by mouth Once per day. Do not crush, chew, or split. 90 tablet 1 05/31/20 24 Active valACYclovir (Valtrex) 500 MG tablet TAKE 1 TABLET(500 MG) BY MOUTH TWICE DAILY FOR 3 DAYS 6 tablet 5 07/11/20 24 Active celecoxib (CeleBREX) 200 MG capsule TAKE 1 CAPSULE(200 MG) BY MOUTH TWICE DAILY 60 capsule 10/01/19 25 Active cyclobenzaprin e (Flexeril) 10 MG tablet Take 1 tablet (10 mg) by mouth every 8 (eight) hours. 90 tablet 10/01/19 25 025 Active DULoxetine (Cymbalta) [address] capsule Take 1 capsule (60 mg) by mouth Once per day. Do not crush or chew. 30 capsule 11 10/01/19 25 026 Active cholecalcifero l (Vitamin D3) 25 MCG (1000 UT) tablet TAKE 1 TABLET BY MOUTH EVERY MORNING 90 tablet 3 10/01/19 25 Active cholecalcifero l (Vitamin D3) 25 MCG (1000 UT) tablet TAKE 1 TABLET BY MOUTH EVERY MORNING 90 tablet 3 02/02/20 24 025 Discontinued(Re order (will not trigger notification to Pharmacy)) cyclobenzaprin e (Flexeril) 10 MG tablet Take 1 tablet (10 mg) by mouth every 8 (eight) hours. 90 tablet 05/31/20 24 025 Discontinued(Re order (will not trigger notification to Pharmacy)) DULoxetine (Cymbalta) [address] capsule Take 1 capsule (60 mg) by mouth Once per day. Do not crush or chew. 30 capsule 11 05/31/20 24 025 Discontinued(Re order (will not trigger notification to Pharmacy)) celecoxib (CeleBREX) 200 MG capsule TAKE 1 CAPSULE(200 MG) BY MOUTH TWICE DAILY 60 capsule 05/31/20 24 025 Discontinued(Re order (will not trigger notification to Pharmacy)) Active Problems Problem Noted Date Diagnosed Date Fibroid uterus 10/27/2022 Fibromyalgia 10/27/2022 Genital herpes simplex 02/15/2018 Joint pain 04/17/2017 Dyshidrotic eczema 04/17/2017 Bursitis of knee 04/17/2017 Vitamin D deficiency 02/14/2017 Knee pain 02/01/2016 Depressive disorder 02/01/2016 Carpal tunnel syndrome 02/01/2016 Anxiety 02/01/2016 Resolved Problems Problem Noted Date Diagnosed Date Resolved Date Pain of breast 05/18/2018 02/02/2024 Body aches 02/14/2017 07/05/2023 Weakness of hand 02/01/2016 02/02/2024 Encounters Date Type Department Care Team Description 10/03/2024 [employer] [facility] [address] [place] [address] NameTay MD 10/03/2024 Telephone [facility] [address] [place], [place] [phone] Sade Engel RN 10/01/2024 11:15 AM EST Office Visit [facility] [address] [place] [address] NameTay MD Axillary mass, left (Primary Dx); Hot flashes; Fibromyalgia; Body aches; Dry eye 10/01/2024 Orders Only [facility] [address] [place] [address] Tay Valverde MD 10/01/2024 Refill [facility] [address] [place] [address] Tay Valverde MD 09/23/2024 Telephone [facility] [address] [place] [address] Massimo Maradiaga MA chart prep 07/10/2024 Refill [facility] [address] [place] [address] Name, MD Tay from Last 3 Months Immunizations Name Administration Dates Next Due Influenza injectable quadriv alent preservative free 07/05/2023,06/28/2022,08/24/2021,2020,07/17/2019 Influenza, IIV3, injectable 11/19/2014, 2 Influenza, seasonal, injecta ble, preservative free 05/31/2024 Pfizer Covid-19 Vaccine 12+ 12/29/2020 Pfizer Covid-19 Vaccine 12+ carmen-sucrose (Blanton Cap) 01/19/2021,12/29/2020 Tdap 07/05/2023,06/20/2012 Social History Tobacco Use Types Packs/Day Years Used Date Smoking Tobacco: Never Passive Smoke Exposure: Never Smokeless Tobacco: Never Tobacco Cessation:Counseling Given: Not Answered Alcohol Use Standard Drinks/Week Comments Yes 2 [...] Orientation Straight 07/11/2022 10 :23 AM EDT Last Filed Vital Signs Vital Sign Reading [...] Mass Index 33.3 10/01/2024 11:00 AM EST Plan of Treatment Upcoming Encounters Date Type Department Care Team (Late st Contact Info) Description 12/13/2024 4:00 PM EDT Office Visit [facility] [address] [place] [address] Name, MD Tay [address] [place] [address] Health Maintenance Due Date Last Done Comments CT Colonography 1979 Colonoscopy 1979 Dental X-Ray: Full Mouth 1979 FIT DNA/Cologuard 1979 HIV Screening 1979 Sigmoidoscopy 1979 Family Planning (PISQ) 1994 Hepatitis B Vaccines (1 of 3 - 19+ 3-dose series) 1998 Dental Oral Exam 06/16/2023 12/14/2022 Dental Prophylaxis 06/16/2023 12/14/2022 Colorectal Cancer Screening 08/10/2023 FIT 08/10/2023 08/10/2022 FOBT 08/10/2023 08/10/2022 Dental X-Ray: Bitewings 12/16/2023 12/14/2022 COVID-19 Vaccine ( season) 2024 01/19/2021, 12/29/2020, 12/29/2020 Pap Smear 10/01/2024 10/01/2021 SDOH Screening 11/27/2024 11/28/2023 Depression Screening 05/31/2025 05/31/2024, 05/31/20 Alcohol/Substance Use Screening 10/01/2025 10/01/2024 Tobacco Screening 10/01/2025 10/01/2024 Mammogram 10/09/2025 10/09/2024, 09/12, 11/03/2023, Additional history exists Cervical Cancer Screening 10/01/2026 HPV/Cotest 10/01/2026 10/01/2021 Zoster Vaccines (1 of 2) 2029 DTaP/Tdap/Td Vaccines (3 - Td or Tdap) 07/05/2033 07/05/2023, 06/20/2012 RSV Patients and Patients Aged 60 years or older (1 - 1-dose 75+ series) 2054 Hepatitis C Screening Completed 06/28/2022 Influenza Vaccine Completed 05/31/2024, , 06/28/2022, Additional history exists HIB Vaccines Aged Out No longer eligi ble based on patient's age to complete this topic HPV Vaccines Aged Out No longer eligi ble based on patient's age to complete this topic Hepatitis A Vaccines Aged Out No long er eligible based on patient's age to complete this topic IPV Vaccines Aged Out No longer eligi ble based on patient's age to complete this topic Meningococcal Vaccine Aged Out No anam kaitlin eligible based on patient's age to complete this topic Pneumococcal Vaccine: Pediatrics (0 to 5 Years) and At-Risk Patients (6 to 49) Years) Aged Out No longer eligible based on patient's age to complete this topic RSV under 20 months Aged Out No longe r eligible based on patient's age to complete this topic Rotavirus Vaccines Aged Out No longer eligible based on patient's age to complete this topic Procedures Procedure Name Priority Date/Time Associated Diagnosis Comments BI US BREAST LIMITED BILATERAL Routine 10/09/2024 1:15 PM EST BI MAMMOGRAM DIAGNOSTIC TOMOSYNTHESIS BILATERAL Routine 10/09/2024 12:45 PM EST Axillary mass, left SJOGREN'S ANTIBODIES (SS-A,SS-B) Routine 10/01/2024 2:33 PM EST CHANDRIKA-1 ANTIBODY Routine 10/01/2024 2:33 PM EST PERIODIC ORAL EVALUATION - ESTABLISHED PATIENT Routine 12/14/2022 1:00 PM EDT PROPHYLAXIS - ADULT Routine 12/14/2022 1 1:00 AM EDT BITEWINGS - 4 RADIOGRAPHIC IMAGES Routine 12/14/2022 11:00 AM EDT FECAL GLOBIN BY IMMUNOCHEMISTRY Routine 08/10/2022 12:00 AM EST ZZZ HISTORICAL HEPATITIS C AB W/REFL TO HCV RNA, QN, PCR Routine 06/28/2022 10:06 AM EDT HM PAP/HPV Routine 10/01/2021 from Last 3 Months or Most Recently Relevant to Health Maintenance Results * BI US Breast Limited Bilateral (10/09/2024 1:15 PM EST) Anatomical Region Laterality Modality Breast Bilateral Ultrasound 10/09/2024 1:15 PM EST Narrative 10/09/2024 1:50 PM EST ? [facility] ? [address] ?[place] [address] ? Ultrasound Report ? Signed ? Patient: Serna Whyte,Omaira K ?MR#: [id number] ?? [id number] ? : 1980 ?Acct:[id number] ? Age/Sex: 44 / F ?ADM Date: //25 ? Loc: HO.MAMMO ? Attending Dr: Tay Valverde MD ? Ordering Physician: Tay Valverde MD ?? Date of Service: 10/09/24 ?? Procedure(s): US breast BI limited mamm only ?? Accession Number(s): [id number] ? cc: Name,Tay DUARTE ? EXAMINATION: ?? [...] ? Signed By: ?<Electronically signed by Naomie Barnard DO in OV> ? 10/09/24 1347 ? DD/ 1315 ? TD/TT: 10/09/24 1343 ? Service Dismantler: ? Procedure Note Jose Angel, Image - 10/09/2024 [facility] [address] [place] [address] Dr. [place], [place] [address] Ultrasound Report Signed Patient: Omaira Yung KMR#: [id number] : 1980Acct:[id number] Age/Sex: 44 / FADM Date: 10/09/24 Loc: HO.MAMMO Attending Dr: Tay Valverde MD Ordering Physician: Tay Valverde MD Date of Service: 10/09/24 Procedure(s): US breast BI limited mamm only Accession Number(s): [id number] cc: NameTay MD EXAMINATION: MM DIAGNOSTIC DIGITAL BREAST TOMOSYNTHESIS, [...] by: Naomie Barnard DO 10/09/2024 01:47 PM EST Dictated By: Naomie Barnard DO Signed By: <Electronically signed by Naomie Barnard DO in OV> 10/09/24 1347 DD/ 1315 TD/TT: 10/09/24 1343 Service Dismantler: Tay Valverde MD IM US PROCEDURES Edited Result - Final * BI Mammogram Diagnostic Tomosynthesis Bilateral (10/09/2024 12:45 PM EST) Anatomical Region Laterality Modality Breast Bilateral Mammography 10/09/2024 12:4 5 PM EST Narrative 10/09/2024 1:50 PM EST ? [facility] ? [address] ?[place] [address] ? Mammography Report ? Signed ? Patient: Serna Whyte,Omaira K ?MR#: [id number] ?? [id number] ? : 1980 ?Acct:[id number] ? Age/Sex: 44 / F ?ADM Date: 10/09/24 ? Loc: HO.MAMMO ? Attending Dr: Tay Valverde MD ? Ordering Physician: Tay Valverde MD ?Results: 1Negative ? Date of Service: 10/09/24 ?Follow Up: 1 Year From Orig ?? inal Mammogram ? Procedure(s): MM tomosynthesis diagnostic BI ?? Accession Number(s): [id number] ? cc: Tay Valverde MD ? EXAMINATION: ?? MM DIAGNOSTIC DIGITAL [...] DD/ 1245 ? TD/TT: 10/09/24 1313 ? Service Dismantler: ? Procedure Note Jose Angel, Image - 10/09/2024 [facility] [address] [place] [address] Mammography Report Signed Patient: Omaira Yung KMR#: [id number] : 1980Acct:[id number] Age/Sex: 44 / FADM Date: 10/09/24 Loc: CECILO Attending Dr: Tay Valverde MD Ordering Physician: Tay Valverdeesults: 1Negative Date of Service: 10/09/24Follow Up: 1 Year From Orig inal Mammogram Procedure(s): MM tomosynthesis diagnostic BI Accession Number(s): [id number] cc: Tay Valverde MD EXAMINATION: MM DIAGNOSTIC DIGITAL BREAST TOMOSYNTHESIS, [...] by: Naomie Barnard DO 10/09/2024 01:47 PM EST Dictated By: Naomie Barnard DO Signed By: <Electronically signed by Naomie Barnard DO in OV> 10/09/24 1347 DD/ 1245 TD/TT: 10/09/24 1313 Service Dismantler: Tay Name MD PABLO BI PROCEDURES Edited Result - Final * Sjogren's Antibodies (SS-A,SS-B) (10/01/2024 2:33 PM EST) Sjogren's Antibody (SS-A) <1.0 NEG <1.0 NEG [facility] Sjogren's Antibody (SS-B) <1.0 NEG <1.0 NEG AI [facility] [place] [facility] 10/01/2024 2:33 PM EST 10/01/2024 2:34 PM EST Narrative [facility] - 10/02/2024 5:04 PM EST FASTING:NO AN UPDATE OR CORRECTION HAS BEEN MADE TO NAME FASTING: NO Tay Name LAB BLOOD ORDERABLES Final Resul t Performing Organization Address [facility] de Phone Number [facility] [address] [place] [address], [place] [address] [facility] [address] [place] [address] * Chandrika-1 Antibody (10/01/2024 2:33 PM EST) Chandrika-1 Antibody <1.0 NEG <1.0 NEG AI [facility] [place] [facility] 10/01/2024 2:33 PM EST 10/01/2024 2:34 PM EST Narrative [facility] - 10/02/2024 5:04 PM EST FASTING:NO AN UPDATE OR CORRECTION HAS BEEN MADE TO NAME FASTING: NO Result [facility] Tay Valverde MD LAB BLOOD ORDERABLES Final Resul t Performing Organization Address [facility] de Phone Number [facility] [address] [place] [phone] [facility] [address] [place] [phone] * Fecal Globin by Immunochemistry (08/10/2022 12:00 AM EST) Fecal Globin By Immunochemistry SEE NOTE [facility] Comment: ??FECAL GLOBIN BY IMMUNOCHEMISTRY ?Micro Number: ?[id number] ??Test Status: ? Final ??Specimen Source: ?? Insure (tm) fobt test card ??Specimen Quality: ??Adequate ??Fecal Globin: ?Not Detected 08/10/2022 08/22/2022 11: 22 PM EST Narrative [facility] - 08/24/2022 12:35 PM EST FASTING: UNKNOWN Result [facility] Tay Valverde MD LAB BODY FLUIDS AND STOOLS ORDER DNAE Final Result Performing Organization Address [facility] de Phone Number [facility] [address] [place] [address], [place] [address] [facility] [address], [place] [address] * HEPATITIS C AB W/REFL TO HCV RNA, QN, PCR (06/28/2022 10:06 AM EDT) HEPATITIS C ANTIBODY NON-REACTI VE NON-REACT JOSH CONVERTED LEGACY LABS INDEX 0.06 <1.00 CONVERTED LEGACY LABS Comment: ?? HCV antibody was non-reactive. There is no laboratory ?? evidence of HCV infection. ?? In most cases, no further action is required. However, if recent HCV exposure is suspected, a test for HCV RNA (test code 03881) is suggested. ?? For additional information please refer to http://education.pic5/faq/FRZ24w1 (This link is being provided for informational/ educational purposes only.) ?? 06/28/2022 10:0 6 AM EDT Tay Name HISTORICAL/NON ORDERABLE LABS Fi nal Result CONVERTED LEGACY LABS * Pap Smear (10/01/2021) Pap Negative for intraephithelial lesion or malignancy Negative for intraephithelial lesion or malignancy, Other HPV Undetected [facility] External Provider HEALTH MAINTENANCE Final Result from Last 3 Months or Most Recently Relevant to Health Maintenance [facility] STAND ADULT Care Teams Tree Fruit And Nut Crops Farmer Relationship Specialty Start Date End Date Name, MD Tay [address] [place] [address] PCP - General Family Medicine 02/01/16
--- OUTSIDE RECORDS SUMMARY | 2024-10-09 14:31 | XMS_ITS | Encounter Summary ---
Author Organization [employer] Address [address] [place] [address] 7t [place] [address] Care Team Providers Care Suction Dredge Dumping Supervisor Name Role Phone Name, Tay DUARTE Primary Care Provider [phone] Encounter Details Date Type Department Care Team (Late st Contact Info) Description 10/17/2022 Orders Only [facility] [address] [place] [address] Lilian Rodriguez LPN Social History Tobacco Use Types Packs/Day Years Used Date Smoking Tobacco: Never Assessed Comments Unknown Sex and Gender Information Value [...] Description 12/13/2024 4:00 PM EDT Office Visit [facility] [address] [place] [address] NameTay MD [address] [place] [address] documented as of this encounter Visit Diagnoses Not on filedocumented in this encounter Care Teams Suction Dredge Dumping Supervisor Relationship Specialty Start Date End Date Tay Valverde MD [address] [place] [address] PCP - General Family Medicine 02/01/16 documented as of this encounter
--- OUTSIDE RECORDS SUMMARY | 2024-10-09 14:31 | XMS_ITS | Encounter Summary ---
Author Organization [employer] Address [address] [facility] 7t [place] [address] Care Team Providers Care Textile Finisher Name Role Phone Name, Tay DUARTE Primary Care Provider [phone] Reason for Visit * Reason Comments Med Refill Encounter Details Date Type Department Care Team ([facility] st Contact Info) Description 10/01/2024 Refill [facility] [address] [place], [place] [phone] Name, MD Tay [address] [place] [address] Social History Tobacco Use Types Packs/Day Years [...] encounter Miscellaneous Notes * Telephone Encounter - Nataliya Honeycutt RN - 10/09/2024 2:16 PM EST ----- Message from Tay Valverde MD sent at 10/09/2024 2:08 PM EST ----- Please call the patient and let her know her mammogram and axillary ultrasound are normal documented in this encounter Plan of Treatment Upcoming Encounters Date Type Department Care Team (Late st Contact Info) Description 12/13/2024 4:00 PM EDT Office Visit [facility] [address] [place] [address] NameTay MD [address] [place] [address] documented as of this encounter Visit Diagnoses Not on filedocumented in this encounter Additional Health Concerns Assessment Noted Time PHQ-9 Depression Total Score: 8 05/31/20 24 3:07 PM EDT documented as of this encounter Care Teams Textile Finisher Relationship Specialty Start Date End Date NameTya MD [address] [place] [address] PCP - General Family Medicine 02/01/16 documented as of this encounter
--- OUTSIDE RECORDS SUMMARY | 2024-10-09 14:31 | XMS_ITS | Encounter Summary ---
Author Organization [employer] Address [address] [facility] 7t [place] [address] Care Team Providers Care Wind Operations Manager Name Role Phone Name, Tay DUARTE Primary Care Provider [phone] Encounter Details Date Type Department Care Team (Late st Contact Info) Description 10/01/2024 Orders Only [facility] [address] [place], [place] [phone] Name, MD Tay [address] [place] [address] Social History Tobacco Use Types Packs/Day Years [...] Description 12/13/2024 4:00 PM EDT Office Visit [facility] [address] [place] [phone] NameTay MD [address] [place] [address] documented as of this encounter Procedures Procedure Name Priority Date/Time Associated Diagnosis Comments SJOGREN'S ANTIBODIES (SS-A,SS-B) Routine 10/01/2024 2:33 PM EST ZAINAB-1 ANTIBODY Routine 10/01/2024 2:33 PM EST documented in this encounter Results * Sjogren's Antibodies (SS-A,SS-B) (10/01/2024 2:33 PM EST) Sjogren's Antibody (SS-A) <1.0 NEG <1.0 NEG AI [employer] [facility] Sjogren's Antibody (SS-B) <1.0 NEG <1.0 NEG [facility] [employer] [facility] [facility] 10/01/2024 2:33 PM EST 10/01/2024 2:34 PM EST Narrative [facility] - 10/02/2024 5:04 PM EST FASTING:NO AN UPDATE OR CORRECTION HAS BEEN MADE TO NAME FASTING: NO Tay Valverde MD LAB BLOOD ORDERABLES Final Resul t [facility] [address], [place] [address] [employer] [facility] [address] [place] [address] * Zainab-1 Antibody (10/01/2024 2:33 PM EST) Zainab-1 Antibody <1.0 NEG <1.0 NEG AI [employer] [place] [facility] 10/01/2024 2:33 PM EST 10/01/2024 2:34 PM EST Narrative [facility] - 10/02/2024 5:04 PM EST FASTING:NO AN UPDATE OR CORRECTION HAS BEEN MADE TO NAME FASTING: NO us Tay Valverde MD LAB BLOOD ORDERABLES Final Resul t [facility] [address], [place] [address] [employer] [facility] [address] [place] [address] documented in this encounter Visit Diagnoses Not on filedocumented in this encounter Additional Health Concerns Assessment Noted Time PHQ-9 Depression Total Score: 8 05/31/20 24 3:07 PM EDT documented as of this encounter Care Teams Wind Operations Manager Relationship Specialty Start Date End Date Name, MD Tay [address] [place] [address] PCP - General Family Medicine 02/01/16 documented as of this encounter
--- OUTSIDE RECORDS SUMMARY | 2024-10-09 14:31 | XMS_ITS | Clinical Summary ---
Author Organization [facility] Address [address] [place] [phone] Care Team Providers Care Command And Control Officer Name Role Phone Name, Tay DUARTE Primary Care Provider [phone] Surgical History Surgery Date Site/Laterality Comments CARPAL TUNNEL RELEASE PROCEDURE: HISTORICAL CARPAL TUNNEL REL; COMMENT: bilateral OTHER SURGICAL HISTORY 2011 PROCEDURE: ---- OTHER ----; COMMENT: breast reduction surgery Family History Medical History Relation Name Comments Autoimmune disease Neg Hx Breast cancer Neg Hx Colon cancer Neg Hx Coronary artery disease Neg Hx Diabetes Neg Hx Heart attack Neg Hx Heart failure Neg Hx Hyperlipidemia Neg Hx Hypertension Neg Hx Mental illness Neg Hx Prostate cancer Neg Hx Sleep apnea Neg Hx Thyroid disease Neg Hx Relation Name Status Comments Brother Alive Daughter 1 Alive sz, blindness, developmental delay, and scoliosis Daughter 2 Alive Father COPD, pneumonia Mother Alive DM, high choles terol Son Alive ADHD and brain injury, SZ Social History Tobacco Use Types Packs/Day Years Used Date Smoking Tobacco: Former Cigarettes Smokeless Tobacco: Never Alcohol Use Standard Drinks/Week Comments No 0 (1 standard drink = 0.6 oz pur e alcohol) Sex and Gender Information Value Date Recorded Sex Assigned at Not on file Gender Identity Not on file Sexual Orientation Not on file Obstetrics History Plan of Treatment Health Maintenance Due Date Last Done Comments Breast Cancer Screening 1979 Hepatitis B Vaccines (1 of 3 - 19+ 3-dose series) 1998 Cervical Cancer Screening: P ap Smear 2000 DTaP,Tdap,and Td Vaccines (2 - Td or Tdap) 06/20/2022 06/20/2012 COVID-19 Vaccine (1 - 2023-2 5 season) 2024 Influenza Vaccine (#1) 2024 06/20/2012 HIB Vaccines Aged Out No longer eligi [...] on patient's age to complete this topic MMR Vaccines Aged Out No longer eligi ble based on patient's age to complete this topic Meningococcal ACWY Vaccine Aged Out N o longer eligible based on patient's age to complete this topic Pneumococcal Vaccine: Pediat rics (0 to 5 Years) and At-Risk Patients (6 to 64 Years) Aged Out No longer eligi ble based on patient's age to complete this topic RSV Immunization Patients Un lokesh 20 months Aged Out No longer eligible b ased on patient's age to complete this topic Varicella Vaccines Aged Out No longer eligible based on patient's age to complete this topic Care Teams Command And Control Officer Relationship Specialty Start Date End Date Name, MD Tay [address] [place], [place] PCP - General Internal Medicine 03/23/12
--- OUTSIDE RECORDS SUMMARY | 2024-10-09 14:31 | XMS_ITS | Clinical Summary ---
Author Organization [facility] Address [address] [place] [address] Care Team Providers Care Electrocardiographic Technician Name Role Phone Unavailable Primary Care Provider Unavailabl e Source Comments PLEASE NOTE, if this patient is a minor, it may be UNLAWFUL to discuss sensitive information that is contained in these records (such as FAMILY PLANNING, MENTAL HEALTH or SUBSTANCE ABUSE) with the minor patient's parent or other person without the patient's specific authorization.[facility] Social History Tobacco Use Types Packs/Day Years Used Date Smoking Tobacco: Never Assessed Comments Unknown Sex and Gender Information Value Date Recorded Sex Assigned at Not on file Legal Sex Female 10:57 AM PST Gender Identity Not on file Sexual Orientation Not on file Plan of Treatment Not on file Insurance [facility] MEDICAID DENTAL
--- OUTSIDE RECORDS SUMMARY | 2024-10-09 14:31 | XMS_ITS | Encounter Summary ---
Author Organization [employer] Address [address] [facility] [address] [place] [address] Care Team Providers Care Customer Experience Specialist Name Role Phone Name, Tay DUARTE Primary Care Provider [phone] Encounter Details Date Type Department Care Team (Late st Contact Info) Description 10/03/2024 Telephone [facility] [address] [place] [address] Sade Engel, RN Social History Tobacco Use Types Packs/Day Years [...] encounter Miscellaneous Notes * Telephone Encounter - Sade Engel RN - 10/03/2024 8:48 AM EST Tc to pt via s audio director id: [id number] to let them know per PCP Please let the patient knowthat all her testing is normal. I do not recommend any med changes . Pt verbalized understanding and no further questions or concerns. * Telephone Encounter - Sade Engel RN - 10/03/2024 8:48 AM EST ----- Message from Tay Valverde MD sent at 10/03/2024 6:50 AM EST ----- Please let the patient know that all her testing is normal. I do not recommend any med changes documented in this encounter Plan of Treatment Upcoming Encounters Date Type Department Care Team (Late st Contact Info) Description 12/13/2024 4:00 PM EDT Office Visit [facility] [address] [place] [address] NameTay MD [address] [place] [address] documented as of this encounter Visit Diagnoses Not on filedocumented in this encounter Additional Health Concerns Assessment Noted Time PHQ-9 Depression Total Score: 8 05/31/20 24 3:07 PM EDT documented as of this encounter Care Teams Customer Experience Specialist Relationship Specialty Start Date End Date NameTay MD [address] [place] [address] PCP - General Family Medicine 02/01/16 documented as of this encounter
--- OUTSIDE RECORDS SUMMARY | 2024-10-09 14:31 | XMS_ITS | Encounter Summary ---
Author Organization [email or web address] [facility] Address [address] [place] [address] 7t [place] [address] Care Team Providers Care Research And Development Scientist Name Role Phone Name, Tay DUARTE Primary Care Provider [phone] Encounter Details Date Type Department Care Team (Latest Contact Info) Description 04/13/2021 Abstract [facility] CONVERSIONS Dental, Provider, DDS Social History Tobacco Use Types Packs/Day Years [...] Description 12/13/2024 4:00 PM EDT Office Visit [facility] MEDICINE [address] [place] [address] Name, MD Tay [address] [place] [address] documented as of this encounter Visit Diagnoses Not on filedocumented in this encounter Care Teams Research And Development Scientist Relationship Specialty Start Date End Date Name, MD Tay [address] [place] [address] PCP - General Family Medicine 02/01/16 documented as of this encounter
--- OUTSIDE RECORDS SUMMARY | 2024-10-09 14:31 | XMS_ITS | Encounter Summary ---
Author Organization [facility] Address [address] [place] [address] 7t [place] [address] Care Team Providers Care Maint Mechanic Name Role Phone Name, Tay DUARTE Primary Care Provider [phone] Reason for Visit * Reason Comments Med Refill Encounter Details Date Type Department Care Team ([facility] Contact Info) Description 01/19/2023 Refill [facility] [address] [place] [address] [phone] NameTay MD [address] [place] [address] [phone] Social History Tobacco Use Types Packs/Day Years Used Date Smoking Tobacco: Never Passive Smoke Exposure: Never Smokeless Tobacco: Never Alcohol Use Standard Drinks/Week Comments Yes 2 (1 standard drink = 0.6 oz pur e alcohol) Depression Answer Date Recorded Patient Health Questionnaire-2 Score 0 10/27/2022 Comments Unknown Sex and Gender Information Value Date Recorded Sex Assigned at Female 07/11/2022 10:23 AM EDT Legal Sex Female 10:23 AM EDT Gender Identity Female 07/11/2022 10:23 AM EDT Sexual Orientation Straight 07/11/2022 10 :23 AM EDT COVID-19 Exposure Response Date Recorded In the last 10 days, have yo u been in contact with someone who was confirmed or suspected to have Coronavirus/COVID-19? No / Unsure 01/19/2023 11:07 AM EDT documented as of this encounter Plan of Treatment Upcoming Encounters Date Type Department Care Team ([facility] Contact Info) Description 12/13/2024 4:00 PM EDT Office Visit [facility] MED[facility] [address] [place] [address] [phone] NameTay MD [address] [place] [address], [place] [address] documented as of this encounter Visit Diagnoses Not on filedocumented in this encounter Care Teams Maint Mechanic Relationship Specialty Start Date End Date Name, MD Tay [address] [place] [address] PCP - General Family Medicine 02/01/16 documented as of this encounter
== END 2024-10-09 12:10 | disposition home or self-care (01) ==
LOC: HO.MAMMO 12:09
PROVIDERS: PCP Internal Medicine Geriatric Medicine; Visit Provider Internal Medicine Geriatric Medicine
DX: N63.32 Unspecified lump in axillary tail of the left breast (principal)
CPT/HCPCS: 76642; 77062; 77066

== ENCOUNTER → 2024-10-09 12:45 | Outpatient (BNV) | payer MEDICAID, SELFPAY | PROVIDERS: PCP Internal Medicine Geriatric Medicine; Visit Provider Internal Medicine | DX: N63.31 Unspecified lump in axillary tail of the right breast (principal); N63.32 Unspecified lump in axillary tail of the left breast; Z97.8 Presence of other specified devices; Z98.890 Other specified postprocedural states | CPT/HCPCS: 76882; 77062; 77066 ==

== ENCOUNTER 2024-12-19 11:31 | Outpatient (REF) | payer MEDICAID, SELFPAY ==
[2024-12-19 13:54] LABS: Anion Gap 10 (12-20); Blood Urea Nitrogen 10 mg/dL (9-16); Calcium 8.7 mg/dL (8.4-10.2); Carbon Dioxide 23 mmol/L (22-29); Chloride 109 mmol/L (96-108); Estimated Glomerular Filt Rate > 60; Glucose Random 103 mg/dL (60-115); Potassium 3.9 mmol/L (3.3-5.1); Sodium 138 mmol/L (135-145)
--- OUTSIDE RECORDS SUMMARY | 2024-12-19 14:02 | XMS_ITS | Clinical Summary ---
Author Organization [facility] Address [address] [place] [address] Care Team Providers Care Crts Name Role Phone Unavailable Primary Care Provider [...] Plan of Treatment Not on file Insurance [facility] DENTAL MEDICAID DENTAL
--- OUTSIDE RECORDS SUMMARY | 2024-12-19 14:02 | XMS_ITS | Encounter Summary ---
Author Organization [employer] Address [address] 7t [place] [address] Care Team Providers Care Mold Sheet Cleaner Name Role Phone Name, Tay DUARTE Primary Care Provider [phone] Reason for Visit * Reason Onset Date Comments Referral 12/19/2024 Patient walked i n stating that the referral that was sent to [facility] doesn't take her insurance. Patient wants referral to be sent to any other clinic that will take her insurance. Encounter Details Date Type Department Care Team (Late st Contact Info) Description 12/19/2024 Telephone [facility] [address] [place] [address] Name, MD Tay [address] [place], [place] [phone] Referral (Patient walked in stating that the referral that was sent to [facility] doesn't take her insurance. Patient wants referral to be sent to any other clinic that will take her insurance.) Social History Tobacco Use Types Packs/Day Years [...] encounter Miscellaneous Notes * Telephone Encounter - Rosa Moreno - 12/19/2024 11:40 AM EDT Patient walked in stating that the referral that was sent to [facility] doesn't take her insurance. Patient wants referral to be sent to any other clinic that will take her insurance. documented in this encounter Plan of Treatment Not on file documented as of this encounter Visit Diagnoses Not on filedocumented in this encounter Additional Health Concerns Assessment Noted Time PHQ-9 Depression Total Score: 8 05/31/20 24 3:07 PM EDT documented as of this encounter Care Teams Mold Sheet Cleaner Relationship Specialty Start Date End Date Name, MD Tay [address] [place] [address] PCP - General Family Medicine 02/01/16 documented as of this encounter
--- OUTSIDE RECORDS SUMMARY | 2024-12-19 14:02 | XMS_ITS | Encounter Summary ---
Author Organization [employer] Address [address] [facility] 7t [place] [address] Care Team Providers Care Sql Application Developer Name Role Phone Name, Tay DUARTE Primary Care Provider [phone] Reason for Visit * Reason Onset Date Comments Appointment Request 12/19/2024 Encounter Details Date Type Department Care Team ([facility] st Contact Info) Description 12/19/2024 Telephone [facility] MED[facility] [address] [place] [address] Name, MD Tay [address] [place] [address] Appointment Request Social History Tobacco Use Types Packs/Day [...] encounter Miscellaneous Notes * Telephone Encounter - Magalys Parrish - 12/19/2024 11:44 AM EDT PT walked in asking for a new appt because she could not come in for September. documented in this encounter Plan of Treatment Not on file documented as of this encounter Visit Diagnoses Not on filedocumented in this encounter Additional Health Concerns Assessment Noted Time PHQ-9 Depression Total Score: 8 05/31/20 24 3:07 PM EDT documented as of this encounter Care Teams Sql Application Developer Relationship Specialty Start Date End Date Name, MD Tay [address] [place] [address] PCP - General Family Medicine 02/01/16 documented as of this encounter
--- OUTSIDE RECORDS SUMMARY | 2024-12-19 14:03 | XMS_ITS | Clinical Summary ---
Author Organization [email or web address] Address [address] [facility] 7t [place] [address] Care Team Providers Care Timber Rider Name Role Phone Name, Tay DUARTE Primary Care Provider [phone] Allergies No known active allergies Medications traZODone (Desyrel) 50 MG tablet TAKE 1/2 TO 1 TABLET BY MOUTH AT BEDTIME 3 Active LORazepam (Ativan) 0.5 MG tablet Take 0.5 mg by mouth if needed each day. 3 Active LORazepam (Ativan) 0.25 mg split tablet take 1 tablet by oral route twice daily as needed AM and 4pm Active traZODone (Desyrel) 50 MG tablet Take 1 tablet by mouth at bed time. 8 Active betamethasone valerate (Valisone) 0.1 % cream Apply topically 2 times daily. 45 g 2 3 Active ferrous gluconate (Fergon) 324 (38 Fe) MG tablet Take 1 pill every Monday, Monday, and Monday. Take with a full glass of water or Vit C containing juice, and ideally 1 hour before a meal or 2 hours after a meal 36 tablet 3 Active fluconazole (Diflucan) 150 MG tablet Take 1 tablet (150 mg) by mouth 1 (one) time per week. 4 tablet 3 Active mometasone (Elocon) 0.1 % ointment Apply topically Once per day. 45 g 3 4 02/02/20 25 Active Multiple Vitamin (multivitamin) capsule Take 1 capsule by mouth Once per day. 30 capsule 11 4 02/02/20 25 Active triamcinolone (Kenalog) 0.1 % creamIndication s:Nummular dermatitis,Hand dermatitis Apply topically if needed in the morning and at bedtime (pain and swelling). Mix with Cerave 80 g 2 4 Active hydroquinone 4 % creamIndication s:Melasma Apply topically 2 times daily. 28.35 g 1 4 02/09/20 25 Active pantoprazole (ProtoNix) 40 MG EC tabletIndicatio ns:Pes anserinus bursitis of left knee Take 1 tablet (40 mg) by mouth Once per day. Do not crush, chew, or split. 90 tablet 1 4 Active valACYclovir (Valtrex) 500 MG tablet TAKE 1 TABLET(500 MG) BY MOUTH TWICE DAILY FOR 3 DAYS 6 tablet 5 4 Active celecoxib (CeleBREX) 200 MG capsule TAKE 1 CAPSULE(200 MG) BY MOUTH TWICE DAILY 60 capsule 5 Active cyclobenzaprine (Flexeril) 10 MG tablet Take 1 tablet (10 mg) by mouth every 8 (eight) hours. 90 tablet 5 Active DULoxetine (Cymbalta) [address] capsule Take 1 capsule (60 mg) by mouth Once per day. Do not crush or chew. 30 capsule 11 5 10/01/19 26 Active cholecalciferol (Vitamin D3) 25 MCG (1000 UT) tablet TAKE 1 TABLET BY MOUTH EVERY MORNING 90 tablet 3 5 Active Active Problems Problem Noted Date Diagnosed Date [...] Encounters Date Type Department Care Team Description 12/19/2024 Telephone [facility] [place] [address] Tay Valverde MD Appointment Request 12/19/2024 Telephone [facility] [place] [address] Tay Valverde MD Referral (Patient walked in stating that the referral that was sent to [facility] doesn't take her insurance. Patient wants referral to be sent to any other clinic that will take her insurance.) 12/13/2024 4:00 PM EDT Office Visit [facility] [place] [address] Tay Valverde MD Pulmonary nodule (Primary Dx); Chronic midline low back pain, unspecified whether sciatica present; Axillary mass, left 12/13/2024 Travel 11/22/2024 Population Health Risk Score [facility] () [address] [phone] Provider, Population Health Generic 11/20/2024 Telephone [facility] [place] [address] Tay Valverde MD Referral 10/30/2024 Telephone [facility] [place] [address] Tay Valverde MD Referral 10/09/2024 Telephone [facility] [place] [address] Nataliya Honeycutt, RN 10/03/2024 Telephone [facility] [address] [place] [address] Tay Valverde MD 10/03/2024 Telephone [facility] [address] [place], [place] [phone] Sade Engel, RN 10/01/2024 11:15 AM EST Office Visit [facility] [place] [address] Tay Valverde MD Axillary mass, left (Primary Dx); Hot flashes; Fibromyalgia; Body aches; Dry eye 10/01/2024 Orders Only [facility] [place] [address] Tay Valverde MD 10/01/2024 Refill [facility] [address] [place] [address] Name, MD Tay 09/23/2024 Telephone [facility] [address] [place] [address] Massimo Maradiaga MA chart prep from Last 3 Months Immunizations Name Administration [...] t he electric, gas, oil or water [employer] threatened to shut off services in your [...] Sign Reading Time Taken Comments Blood Pressure 126/78 12/13/2024 3:51 PM EDT Pulse 69 12/13/2024 3:51 PM EDT Temperature 36.3 ??C (97.4 ??F) 12/13/2024 3:51 PM ED T Respiratory Rate 21 12/13/2024 3:51 PM EDT Oxygen Saturation 98% 12/13/2024 3:51 PM EDT Inhaled Oxygen Concentration - - Weight 87.5 kg (192 lb 12.8 oz) 12/13/2024 3:51 PM EDT Height 162.6 cm (5' 4 ) 12/13/2024 3:51 PM EDT Body Mass Index 33.09 12/13/2024 3:51 PM EDT Plan of Treatment Health Maintenance Due Date [...] 05/31/2024, 05/31/20 Alcohol/Substance Use Screening 10/01/2025 10/01/2024 Mammogram 10/09/2025 10/09/2024, 09/12, 11/03/2023, Additional history exists Tobacco Screening 12/13/2025 12/13/2024 Cervical Cancer Screening 10/01/2026 HPV/Cotest 10/01/2026 10/01/2021 [...] Procedure Name Priority Date/Time Associated Diagnosis Comments BASIC METABOLIC PANEL Routine 12/19/2024 11:33 AM EDT Pulmonary nodule BI US BREAST LIMITED BILATERAL Routine 10/09/2024 [...] Recently Relevant to Health Maintenance Results * (ABNORMAL) Basic Metabolic Panel (12/19/2024 11:33 AM EDT) Sodium 138 135 - 145 mmol/L [facility] Potassium 3.9 3.3 - 5.1 mmol/L [facility] Chloride 109(H) 96 - 108 mmol/L [facility] Carbon Dioxide 23 22 - 29 mmol/L [facility] Anion Gap 10(L) 12 - 20 [facility] Urea Nitrogen (BUN) 10 9 - 16 mg/dL [facility] Creatinine, Serum 0.73 0.5 - 1.4 mg/dL [facility] Estimated Glomerular Filt Rate >60 [facility] Comment:Chronic Kidney Disea se: Estimated GFR < 60 mL/min/[id number] Kidney Disease: Estimated GFR < 15 mL/min/1.73m2 Glucose 103 60 - 115 mg/dL [facility] Calcium 8.7 8.4 - 10.2 mg/dL [facility] Blood Venous blood specimen / Unknown 12/19/2024 11:33 AM EDT 12/19/2024 1:33 PM EDT us Tay Name MD LAB BLOOD ORDERABLES Final Resul t [facility] [address] [facility] [place] [address] [phone] * BI US Breast Limited Bilateral (10/09/2024 1:15 PM EST) Anatomical Region Laterality Modality Breast Bilateral Ultrasound 10/09/2024 1:15 PM EST Narrative 10/09/2024 1:50 PM EST ? [facility] [place] ? [address] ?[place] [address] ? Ultrasound Report ? Signed ? Patient: Serna Whyte,Omaira K ?MR#: [id number] ?? [id number] ? : 1980 ?Acct:[id number] ? Age/Sex: 44 / F ?ADM Date: 10/09/24 ? Loc: HO.MAMMO ? Attending Dr: Tay Valverde MD ? Ordering Physician: Tay Valverde MD ?? Date of Service: 10/09/24 ?? Procedure(s): US breast BI limited mamm only ?? Accession Number(s): [id number] ? cc: Tay Valverde MD ? EXAMINATION: [...] DD/ 1315 ? TD/TT: 10/09/24 1343 ? Bindery Helper: ? Procedure Note Yangharley, Image - 10/09/2024 [facility] [address] [place] [address] Ultrasound Report Signed Patient: Omaira Yung KMR#: [id number] : 1980Acct:[id number] Age/Sex: 44 / FADM Date: 10/09/24 Loc: HO.MAMMO Attending Dr: Tay Valverde MD Ordering Physician: Tay Valverde MD Date of Service: 10/09/24 Procedure(s): US breast BI limited mamm only Accession Number(s): [id number] cc: Tay Valverde MD EXAMINATION: MM DIAGNOSTIC [...] Naomie Barnard DO 10/09/2024 01:47 PM EST RP Dictated By: Naomie Barnard DO Signed By: <Electronically signed by Naomie Barnard DO in OV> 10/09/24 1347 DD/ 1315 TD/TT: 10/09/24 1343 Bindery Helper: us Tay Name IMG US PROCEDURES Edited Result - Final * BI Mammogram Diagnostic Tomosynthesis Bilateral (10/09/2024 12:45 PM EST) Anatomical Region Laterality Modality Breast Bilateral Mammography 10/09/2024 12:4 5 PM EST Narrative 10/09/2024 1:50 PM EST ? [facility] [place] ? [address] ?[place] [address] ? Mammography Report ? Signed ? Patient: Serna Whyte,Omaira K ?MR#: [id number] ?? [id number] ? : 1980 ?Acct:[id number] ? Age/Sex: 44 / F ?ADM Date: 01/29/25 ? Loc: HO.MAMMO ? Attending : Tay Valverde MD ? Ordering Physician: Tay Valverde MD ?Results: 1Negative ? Date of Service: 10/09/24 ?Follow Up: 1 Year From Orig ?? inal Mammogram ? Procedure(s): MM tomosynthesis diagnostic BI ?? Accession Number(s): [id number] ? cc: Nicolle,Tay DUARTE ? EXAMINATION: ?? MM DIAGNOSTIC DIGITAL [...] DD/ 1245 ? TD/TT: 10/09/24 1313 ? Bindery Helper: ? Procedure Note Donotjustininterpreter, Image - 10/09/2024 [facility] [address] [place] [address] Mammography Report Signed Patient: Omaira Yung KMR#: [id number] : 1980Acct:[id number] Age/Sex: 44 / FADM Date: 10/09/24 Loc: HO.MAMMO Attending Dr: Tay Valverde MD Ordering Physician: Tay Valverdeesults: 1Negative Date of Service: 10/09/24Follow Up: 1 Year From Orig ina Mammogram Procedure(s): MM tomosynthesis diagnostic BI Accession Number(s): [id number] cc: Tay Valverde MD EXAMINATION: MM DIAGNOSTIC [...] 10/09/24 1347 DD/ 1245 TD/TT: 10/09/24 1313 Bindery Helper: Tay Valverde MD IMG BI PROCEDURES Edited Result - Final * Sjogren's Antibodies (SS-A,SS-B) (10/01/2024 2:33 PM EST) Sjogren's Antibody (SS-A) <1.0 NEG <1.0 NEG AI [facility] [place] [facility] Sjogren's Antibody (SS-B) <1.0 NEG <1.0 NEG AI [facility] [place] [facility] 10/01/2024 2:33 PM EST 10/01/2024 2:34 PM EST Narrative [facility] - 10/02/2024 5:04 PM EST FASTING:NO AN UPDATE OR CORRECTION HAS BEEN MADE TO NAME FASTING: NO Tay Valverde MD LAB BLOOD ORDERABLES Final Resul t [facility] [address], [place] [address] [facility] [place] [facility] [address] [place] [address] * Chandrika-1 Antibody (10/01/2024 2:33 PM EST) Chandrika-1 Antibody <1.0 NEG <1.0 NEG AI [facility] [place] [facility] 10/01/2024 2:33 PM EST 10/01/2024 2:34 PM EST Narrative [facility] - 10/02/2024 5:04 PM EST FASTING:NO AN UPDATE OR CORRECTION HAS BEEN MADE TO NAME FASTING: NO Tay Valverde MD LAB BLOOD ORDERABLES Final Resul t Performing Organization Address [facility] de Phone Number [address] [phone] [facility] [place] [facility] [address] [place] [address] * Fecal Globin by Immunochemistry (08/10/2022 12:00 AM EST) Pathologist [facility] Fecal Globin By Immunochemistry SEE NOTE [facility] [place] [facility] Comment: ??FECAL GLOBIN BY IMMUNOCHEMISTRY ?Micro Number: ?[id number] ??Test Status: ? Final ??Specimen Source: ?? Insure (tm) fobt test card ??Specimen Quality: ??Adequate ??Fecal Globin: ?Not Detected 08/10/2022 08/22/2022 11: 22 PM EST Narrative [facility] - 08/24/2022 12:35 PM EST FASTING: UNKNOWN Tay Valverde MD LAB BODY FLUIDS AND STOOLS ORDER DANE Final Result Performing Organization Address [facility] de Phone Number [address] [phone] [facility] [place] [facility] [address] [address] * HEPATITIS C AB W/REFL TO HCV RNA, QN, PCR (06/28/2022 10:06 AM EDT) Pathologist [facility] HEPATITIS C ANTIBODY NON-REACTI VE NON-REACT JOSH CONVERTED LEGACY LABS INDEX 0.06 <1.00 CONVERTED [facility]GACY LABS Comment: ?? HCV antibody was non-reactive. There is no laboratory ?? evidence of HCV infection. ?? In most cases, no further action is required. However, if recent HCV exposure is suspected, a test for HCV RNA (test code 41645) is suggested. ?? For additional information please refer to http://education.[employer]/faq/EWJ90t2 (This link is being provided for informational/ educational purposes only.) ?? 06/28/2022 10:0 6 AM EDT Tay Name HISTORICAL/NON ORDERABLE LABS Fi nal Result CONVERTED LEGACY LABS * Pap Smear (10/01/2021) Pap Negative for intraephithelial lesion or malignancy Negative for intraephithelial lesion or malignancy, Other HPV Undetected [facility] External Provider HEALTH MAINTENANCE Final Result from Last 3 Months or Most Recently Relevant to Health Maintenance [place] [address] C3 HSN [facility] MEDICAID STAND ADULT Care Teams Timber Rider Relationship Specialty Start Date End Date Name, MD Tay [address] [place] [id number] PCP - General Family Medicine 02/01/16
--- OUTSIDE RECORDS SUMMARY | 2024-12-19 14:03 | XMS_ITS | Encounter Summary ---
Author Organization [employer] Address [address] [facility] 7 [place] [address] Care Team Providers Care Buttermaker Helper Name Role Phone Tay Gregory MD Primary Care Provider [phone] Reason for Referral * Consultation (Routine) - Authorized Specialty Diagnoses / Procedures Referred By Narinder hackett Referred To Contact Breast Surgery Diagnoses Axillary mass, left aTy Gregory MD [address] [place] [address] Phone: tel: fax: [facility] [address] [place] [address] 3rd [address] [place] [address] Phone: tel: fax: Referral ID Status Reason Start Date Expiration Date Visits Requested Visits Authorized [id number] Authorized Specialty Services Required 12/17/2024 12/17/2025 6 6 * Consultation (Routine) - Closed Specialty Diagnoses / Procedures Referred By Narinder t Referred To Contact Physical Therapy Diagnoses Chronic midline low back pain, unspecified whether sciatica present NameTay MD [address] [place] [address] Phone: tel: fax: [facility] [address] Phone: tel: fax: Referral ID Status Reason Start Date Expiration Date V isits Requested Visits Authorized [id number] Closed Specialty Services Required 12/13/2024 12/13/2025 20 20 * Imaging (Routine) - Authorized Specialty Diagnoses / Procedures Referred By Contac t Referred To Contact Radiology Diagnoses Pulmonary nodule Procedures CTA Chest WITH AND WITHOUT Contrast Tay Gregory MD [address] [place] [address] Phone: tel: fax: [address] Phone: tel: fax: Referral ID Status Reason Start Date Expiration Date V isits Requested Visits Authorized [id number] Authorized 12/13/2024 12/13/2025 1 1 Reason for Visit * Reason Comments Follow-up Encounter Details Date Type Department Care Team (Late st Contact Info) Description 12/13/2024 4:00 PM EDT Office Visit [facility] MEDICINE [address] [place] [address] Tay Gregory MD [address] [place] [address] Pulmonary nodule (Primary Dx); Chronic midline low back pain, unspecified whether sciatica present; Axillary mass, left Social History Tobacco Use Types Packs/Day Years [...] Mass Index 33.09 12/13/2024 3:51 PM EDT documented in this encounter Progress Notes * Tay Gregory MD - 12/13/2024 4:00 PM EDT Subjective Patient ID: Omaira Serna is a 44 y.o. female who presents for Follow-up. Patient comes for a follow-up visit. She is concerned about the incidental finding of 5 mm pulmonary nodule on the right middle lobe on a CT scan of the abdomen she had done at [facility] last[facility] after a fall. She is not a smoker, she does not have any respiratory symptoms, she does not have any personal history of malignancy. Review of Systems Constitutional: Negative for chills and fever. HENT: Negative for sore throat. Respiratory: Negative for cough, shortness of breath and wheezing. Cardiovascular: Negative for chest pain, palpitations and leg swelling. Gastrointestinal: Negative for abdominal pain. Musculoskeletal: Patient has chronic low back pain since her fall last year. She has requested referral to physical therapy at [facility] Neurological: Negative for weakness. Visit Vitals BP 126/78 (BP Location: Left arm, Patient Position: Sitting, BP Cuff Size: Adult) Pulse 69 Temp 97.4 ??F (36.3 ??C) (Temporal) Resp 21 Ht 5' 4 (1.626 m) Wt 192 lb 12.8 oz (87.5 kg) SpO2 98% BMI 33.09 kg/m?? Smoking Status Never BSA 1.99 m?? Objective Physical Exam Constitutional: Appearance: Normal appearance. Cardiovascular: Rate and Rhythm: Normal rate and regular rhythm. Heart sounds: No murmur heard. No gallop. Pulmonary: Effort: Pulmonary effort is normal. No respiratory distress. Breath sounds: Normal breath sounds. No wheezing. Musculoskeletal: Right lower leg: No edema. Left lower leg: No edema. Neurological: Mental Status: She is alert. Assessment/Plan Diagnoses and all orders for this visit: Pulmonary nodule Comments: I will refer to have a dedicated CT scan of the chest. Further recommendation based on the results.She is at low risk for malignancy. If nodule is unchanged I would not recommend further workup. Orders: - Basic Metabolic Panel; Future - CTA Chest WITH AND WITHOUT Contrast; Future Chronic midline low back pain, unspecified whether sciatica present Comments: I referred to physical therapy as requested. Orders: - Referral to Physical Therapy; Future Axillary mass, left Comments: At the end of the visit she requested referral to plastic surgery. She requested referral to Dr. Amberly Kirkpatrick for treatment recommendations of a left axillary soft mass she has for more than a year. She was already evaluated with mammogram and breast ultrasound that were negative for malignancy in September. She was referred as she requested. [facility]'s [address] [place] [address] Ultrasound Report Signed Patient: Omaira Yung MR#: [id number] : 1980 Acct:[id number] Age/Sex: 44 / F ADM Date: 10/09/24 Loc: HO.MAMMO Attending Dr: Tay Gregory MD Ordering Physician: Tay Gregory MD Date of Service: 10/09/24 Procedure(s): US breast BI limited mamm only Accession Number(s): [id number] cc: Tay Gregory MD EXAMINATION: MM DIAGNOSTIC [...] follow-up. ASSESSMENT: BI-RADS BI-RADS 1 - Negative Orders: - Referral to Plastic Surgery; Future documented in this encounter Miscellaneous Notes * Addendum Note - Tay Gregory MD - 12/13/2024 4:00 PM EDTAddended by: TAY GREGORY on: 12/17/2024 06:36 AM Modules accepted: Orders documented in this encounter Plan of Treatment Scheduled Orders Name Type Priority Associated Diagnoses Orde r Schedule CTA Chest WITH AND WITHOUT Contrast Imaging Routine Pulmonary nodule Expected: 12/13/2024, Expires: 12/13/2025 Scheduled Referrals Name Type Priority Associated Diagnoses Orde r Schedule Referral to Physical Therapy Outpatient Referral Routine Chronic midline low back pain, unspecified whether sciatica present Expected: 12/13/2024 (Approximate), Expires: 12/13/2025 Referral to Breast Surgery Outpatient Referral Routine Axillary mass, left Expected: 12/17/2024 (Approximate), Expires: 12/17/2025 documented as of this encounter Procedures Procedure Name Priority Date/Time Associated Diagnosis Comments BASIC METABOLIC PANEL Routine 12/19/2024 11:33 AM EDT Pulmonary nodule documented in this encounter Results * (ABNORMAL) Basic Metabolic Panel (12/19/2024 11:33 AM EDT) Sodium 138 135 - 145 mmol/L [facility] Potassium 3.9 3.3 - 5.1 mmol/L [facility] Chloride 109(H) 96 - 108 mmol/L [facility] Carbon Dioxide 23 22 - 29 mmol/L [facility] Anion Gap 10(L) 12 - 20 [facility] Urea Nitrogen (BUN) 10 9 - 16 mg/dL [facility] Creatinine, Serum 0.73 0.5 - 1.4 mg/dL [facility] Estimated Glomerular Filt Rate >60 [facility] Comment:Chronic Kidney Disea se: Estimated GFR < 60 mL/min/[id number] Kidney Disease: Estimated GFR < 15 mL/min/1.73m2 Glucose 103 60 - 115 mg/dL [facility] Calcium 8.7 8.4 - 10.2 mg/dL [facility] Blood Venous blood specimen / Unknown 12/19/2024 11:33 AM EDT 12/19/2024 1:33 PM EDT us Tay Name LAB BLOOD ORDERABLES Final Resul t [facility] [address] [place] [phone] documented in this encounter Visit Diagnoses Diagnosis Pulmonary nodule- Primary Other diseases of lung, not elsewhere classified Chronic midline low back pain, unspecified whether sciatica present Axillary mass, left documented in this encounter Additional Health Concerns Assessment Noted Time PHQ-9 Depression Total Score: 8 05/31/20 24 3:07 PM EDT documented as of this encounter Care Teams Buttermaker Helper Relationship Specialty Start Date End Date Name, MD Tay [address] [place] [address] PCP - General Family Medicine 02/01/16 documented as of this encounter
--- OUTSIDE RECORDS SUMMARY | 2024-12-19 14:03 | XMS_ITS | Encounter Summary ---
Author Organization [employer] Address [address] [facility] 7t [place] [address] Care Team Providers Care Membership Solicitor Name Role Phone Name, Tay DUARTE Primary Care Provider [phone] Encounter Details Date Type Department Care Team ([facility] st Contact Info) Description 10/17/2022 Orders Only [facility] [address] [place] [address] Lilian Rodriguez LPN Social History Tobacco Use Types Packs/Day Years Used Date Smoking Tobacco: Never Assessed Comments Unknown Sex and Gender Information Value Date Recorded Sex Assigned at Female 07/11/2022 10:23 AM EDT Legal Sex Female 10:23 AM EDT Gender Identity Female 07/11/2022 10:23 AM EDT Sexual Orientation Straight 07/11/2022 10 :23 AM EDT documented as of this encounter Plan of Treatment Not on file documented as of this encounter Visit Diagnoses Not on filedocumented in this encounter Care Teams Membership Solicitor Relationship Specialty Start Date End Date Name, MD Tay [address] [place] [phone] PCP - General Family Medicine 02/01/16 documented as of this encounter
--- OUTSIDE RECORDS SUMMARY | 2024-12-19 14:03 | XMS_ITS | Encounter Summary ---
Author Organization [employer] [facility] Address [address] [place] [address] 7 [place] [address] Care Team Providers Care Stone Gang Sawyer Name Role Phone Name, Tay DUARTE Primary Care Provider [phone] Reason for Visit * Reason Comments Med Refill Encounter Details Date Type Department Care Team ([facility] st Contact Info) Description 01/19/2023 Refill [facility] MEDICINE [address] [place] [address] [phone] Name, MD Tay [address] [place] [address] Social History Tobacco Use Types Packs/Day Years [...] on filedocumented in this encounter Care Teams Stone Gang Sawyer Relationship Specialty Start Date End Date Name, MD Tay [address] [place] [address] PCP - General Family Medicine 02/01/16 documented as of this encounter
--- OUTSIDE RECORDS SUMMARY | 2024-12-19 14:03 | XMS_ITS | Encounter Summary ---
Author Organization [employer] Address [address] [facility] [address] 7[address] [place] [address] Care Team Providers Care Plan Rep Name Role Phone Name, Tay DUARTE Primary Care Provider [phone] Encounter Details Date Type Department Care Team ([facility] st Contact Info) Description 10/18/2023 Abstract [facility] MEDICINE [address] [place], [place] [phone] Name, MD Tay [address] [place] [address] Social History Tobacco Use Types Packs/Day Years Used Date Smoking Tobacco: Never Passive Smoke Exposure: Never Smokeless Tobacco: Never Alcohol Use Standard Drinks/Week Comments Yes 2 (1 standard drink = 0.6 oz pur e alcohol) Housing Stability Answer Date Recorded What is your housing situation today? I have demetriusgeorgia jason 06/27/[address] [...] on filedocumented in this encounter Care Teams Plan Rep Relationship Specialty Start Date End Date Name, MD Tay [address] [place] [address] PCP - General Family Medicine 02/01/16 documented as of this encounter
--- OUTSIDE RECORDS SUMMARY | 2024-12-19 14:03 | XMS_ITS | Encounter Summary ---
Author Organization [employer] Address [address] [facility] 7t [place] [address] Care Team Providers Care Nuclear Waste Process Operator Name Role Phone Name, Tay DUARTE Primary Care Provider [phone] Reason for Visit * Reason Comments Med Refill Encounter Details Date Type Department Care Team ([facility] st Contact Info) Description 10/18/2023 Refill [facility] MEDICINE [address] [place] [address] Name, MD Tay [address] [place], [place] [phone] Social History Tobacco Use Types Packs/Day Years [...] on filedocumented in this encounter Care Teams Nuclear Waste Process Operator Relationship Specialty Start Date End Date Name, MD Tay [address] [place] [address] PCP - General Family Medicine 02/01/16 documented as of this encounter
--- OUTSIDE RECORDS SUMMARY | 2024-12-19 14:03 | XMS_ITS | Encounter Summary ---
Author Organization [employer] [facility] Address [address] [place] [address] 7 [place] [address] Care Team Providers Care Associate Sales Name Role Phone Name, Tay DUARTE Primary Care Provider [phone] Encounter Details Date Type Department Care Team (Latest Contact Info) Description 04/13/2021 Abstract [facility] Dental, Provider, DDS Social History Tobacco [...] on filedocumented in this encounter Care Teams Associate Sales Relationship Specialty Start Date End Date Name, MD Tay [address] [place] [phone] PCP - General Family Medicine 02/01/16 documented as of this encounter
--- OUTSIDE RECORDS SUMMARY | 2024-12-19 14:03 | XMS_ITS | Clinical Summary ---
Author Organization [facility] Address [address] [place] [phone] Care Team Providers Care Chef French Name Role Phone Name, Tay DUARTE Primary Care Provider [phone] Surgical History Surgery Date Site/Laterality Comments CARPAL [...] drink = 0.6 oz pur e alcohol) Comments Unknown Sex and Gender Information Value Date Recorded Sex Assigned at Not on file Legal Sex Female 2:27 AM EST Gender Identity Not on file Sexual Orientation Not on file Obstetrics History Plan of Treatment Health Maintenance Due Date Last Done Comments Breast Cancer Screening 1980 Hepatitis B Vaccines (1 of 3 - 19+ 3-dose series) 1998 Cervical Cancer Screening: P ap Smear 2000 DTaP,Tdap,and Td Vaccines (2 - Td or Tdap) 06/20/2022 06/20/2012 COVID-19 Vaccine (2023-2 5 season) 2024 Influenza Vaccine (Season Ended) 2025 06/20/20 12 HIB Vaccines Aged Out No longer eligi [...] patient's age to complete this topic Meningococcal B Vaccine Aged Out No l onger eligible based on patient's age to complete [...] age to complete this topic Care Teams Chef French Relationship Specialty Start Date End Date Name, MD Tay [address] [place] [address] PCP - General Internal Medicine 03/23/12
--- OUTSIDE RECORDS SUMMARY | 2024-12-19 14:03 | XMS_ITS | Encounter Summary ---
Author Organization [employer] Address [address] [facility] 7t [place] [address] Care Team Providers Care Advertising Strategist Name Role Phone Name, Tay DUARTE Primary Care Provider [phone] Reason for Visit * Reason Onset Date Comments Med Change Request 10/18/2023 Encounter Details Date Type Department Care Team ([facility] st Contact Info) Description 10/18/2023 Telephone [facility] MEDICINE [address] [place] [address] Name, MD Tay [address] [place], [place] [phone] Med Change Request Social History Tobacco Use [...] t he electric, gas, oil or water [employer] threatened to shut off services in your [...] up medication. * Telephone Encounter - Adri Thompson - 10/18/2023 11:28 AM EST Tc from pt states lactulose (Chronulac) 10 GM/15ML solution is not covered by insurance and is requesting an alternative. documented in this encounter Plan of Treatment Not on file documented as of this encounter Visit Diagnoses Not on filedocumented in this encounter Care Teams Advertising Strategist Relationship Specialty Start Date End Date Name, MD Tay [address] [place] [address] PCP - General Family Medicine 02/01/16 documented as of this encounter
== END 2024-12-19 11:32 | disposition home or self-care (01) ==
LOC: HO.HHCL 11:31
PROVIDERS: Visit Provider Internal Medicine Geriatric Medicine
DX: R91.1 Solitary pulmonary nodule (principal)
CPT/HCPCS: 36415; 80048

== ENCOUNTER 2025-01-27 13:49 | Outpatient (REF) | payer MEDICAID, SELFPAY ==
--- NOTE | ~2025-01-27 | CT_ITS ---
EXAMINATION: CT CHEST WITH CONTRAST CLINICAL INFORMATION: Solitary pulmonary nodule. COMPARISON: None available. TECHNIQUE: Multidetector volumetric CT imaging of the chest was obtained after the administration of 65 mL of Omnipaque 350 intravenous contrast without immediate adverse reactions. Axial MIP volume rendering provided. Sagittal and coronal reformatted images were obtained. This CT examination was performed using dose optimization techniques as appropriate, variously including the following: *Automated exposure control *Adjustment of mA and/or kV according to patient size (this includes techniques or standardized protocols for targeted exams where dose is matched to indication/reason for exam; i.e. extremities or head) *Use of iterative reconstruction technique DLP: 165 mGy centimeter. FINDINGS: FUR MIXER: Patient's large body habitus. Metallic foreign body posterior thorax overlapping the inferior right perihilar on the frontal projection. LUNGS: There is a 3.7 mm noncalcified pulmonary nodule, right middle lung lobe. No gross consolidation. No gross bronchiectasis. No honeycombing. Respiratory airways is patent. MEDIASTINUM: No lymphadenopathy calcifications in the azygos arch. No aneurysm or dissection, thoracic aorta. No pericardial effusion. The heart is not enlarged. PLEURA: No pleural effusion. No pneumothorax. AXILLA: No lymphadenopathy. UPPER ABDOMEN: Decreased enhancement pattern of the liver parenchyma. OSSEOUS STRUCTURES: A S-shaped curvature of the thoracic spine. Mild multilevel spondylosis. No acute fracture or gross listhesis in the axial skeleton. Reverse curvature apex at T11-12. Probable bony island in the sternum manubrium. CT/CT chest w IV con IMPRESSION: Solitary 3.7 mm noncalcified pulmonary nodule, right middle lung lobe. Hepatic steatosis. Subcentimeter cystic nodule, right breast. Fleischner guidelines were followed. Electronically signed by: Eliazar Gonzales MD 01/27/2025 03:24 PM EDT
--- OUTSIDE RECORDS SUMMARY | 2025-01-27 13:53 | XMS_ITS | Encounter Summary ---
Author Organization [employer] Address [address] [facility] [address] 7t [place] [address] Care Team Providers Care Chess Instructor Name Role Phone Name, Tay DUARTE Primary Care Provider [phone] Reason for Visit * Reason Onset Date Comments Med Change Request 10/18/2023 Encounter Details Date Type Department Care Team ([facility] st Contact Info) Description 10/18/2023 Telephone [facility] MEDICINE [address] [place] [address] Name, MD Tay [address] [place] [address] Med Change Request Social History Tobacco Use [...] the past 12 months, has t he [employer], gas, oil or water company threatened to [...] Care Team (Late st Contact Info) Description 02/21/2025 4:00 PM EDT Office Visit [facility] MEDICINE [address] [place] [phone] Chanel Almaraz MD [address] [place] [phone] 05/06/2025 11:00 AM EDT Office Visit [facility] MEDICINE [address] [place] [address] Tay Valverde MD [address] [place] [address] documented as of this encounter Visit Diagnoses Not on filedocumented in this encounter Care Teams Chess Instructor Relationship Specialty Start Date End Date Tay Valverde MD [address] [place] [address] PCP - General Family Medicine 02/01/16 documented as of this encounter
--- OUTSIDE RECORDS SUMMARY | 2025-01-27 13:53 | XMS_ITS | Clinical Summary ---
Author Organization [employer] Address [address] [place] [address] 7t [place] [address] Care Team Providers Care Residential Coordinator Name Role Phone Name, Tay DUARTE Primary Care Provider [phone] Allergies No known active allergies Medications traZODone [...] Encounters Date Type Department Care Team Description 01/16/2025 Telephone [facility] MEDICINE [address] [place], [place] [address] [place] [address] Dana MaradiagaVINNIE oviedo august recalls 12/27/2024 Telephone [facility] [place] [address] Tay Valverde MD 12/26/2024 Telephone [facility] [place] [place] [address] Tay Valverde MD Referral 12/23/2024 Telephone [facility] [place] [address] Tay Valverde MD 12/19/2024 Telephone [facility] [place] [address] Tay Valverde MD Appointment Request 12/19/2024 Telephone [facility] [place] [address] Tay Valverde MD Referral (Patient walked in stating that the referral that was sent to [facility] [place] doesn't take her insurance. Patient wants referral to be sent to any other clinic that will take her insurance.); Referral 12/13/2024 4:00 PM EDT Office Visit [facility] [place] [address] Tay Valverde MD Pulmonary nodule (Primary Dx); Chronic midline low back pain, unspecified whether sciatica present; Axillary mass, left 12/13/2024 Travel 11/22/2024 Population Health Risk [facility] () [address] [address] Provider, Population Health Generic 11/20/2024 Telephone [facility] [place] [address] Tay Valverde MD Referral 10/30/2024 Telephone [facility] [place] [address] Tay Valverde MD Referral from Last 3 Months Immunizations Immunization Administration Dates Next Due Influenza injectable quadriv [...] the past 12 months, has t he [employer], gas, oil or water company threatened to [...] 12/13/2024 3:51 PM EDT Plan of Treatment Upcoming Encounters Date Type Department Care Team (Late st Contact Info) Description 02/21/2025 4:00 PM EDT Office Visit [facility] MEDICINE [address] [place] [address] Chanel Almaraz MD [address] [place] [address] 05/06/2025 11:00 AM EDT Office Visit [facility] MEDICINE [address] [place] [phone] Name, MD Tay [address] [place] [address] Health Maintenance Due Date Last Done Comments [...] Procedure Name Priority Date/Time Associated Diagnosis Comments AMB REFERRAL TO PHYSICAL MEDICINE REHAB/PHYSIATRY Routine 01/15/2025 Chronic midline low back pain, unspecified whether sciatica present Chronic neck pain Radicular pain in right arm BASIC METABOLIC PANEL Routine 12/19/2024 11:33 AM EDT Pulmonary nodule BI US BREAST LIMITED BILATERAL Routine 10/09/2024 1:15 PM EST PERIODIC ORAL EVALUATION - ESTABLISHED [...] Recently Relevant to Health Maintenance Results * Referral to Physiatry (01/15/2025) us Tay Name OUTPATIENT REFERRAL ORDERABLES F inal Result * (ABNORMAL) Basic Metabolic Panel (12/19/2024 11:33 AM EDT) Sodium 138 135 - 145 mmol/L [facility] Potassium 3.9 3.3 - 5.1 mmol/L [facility] Chloride 109(H) 96 - 108 mmol/L [facility] Carbon Dioxide 23 22 - 29 mmol/L [facility] Anion Gap 10(L) 12 - 20 [facility] Urea Nitrogen (BUN) 10 9 - 16 mg/dL [facility] Creatinine, Serum 0.73 0.5 - 1.4 mg/dL [facility] Estimated Glomerular Filt Rate >60 [facility] Comment:Chronic Kidney Disea se: Estimated GFR < 60 mL/min/1.39e1Edxbjf Kidney Disease: Estimated GFR < 15 mL/min/1.73m2 Glucose 103 60 - 115 mg/dL [facility] Calcium 8.7 8.4 - 10.2 mg/dL [facility] Blood Venous blood specimen / Unknown 12/19/2024 11:33 AM EDT 12/19/2024 1:33 PM EDT us Tay Name MD LAB BLOOD ORDERABLES Final Resul t [facility] [address] [place] [address] [phone] * BI US Breast Limited Bilateral (10/09/2024 1:15 PM EST) Anatomical Region Laterality Modality Breast Bilateral Ultrasound 10/09/2024 1:15 PM EST Narrative 10/09/2024 1:50 PM EST ? [facility] [place] ? [address] ?[place] [address] ? Ultrasound Report ? Signed ? Patient: Omaira Yung ?MR#: [id number] ?? [id number] ? : 1980 ?Acct:[id number] ? Age/Sex: 44 / F ?ADM Date: 10/09/24 ? Loc: HO.MAMMO ? Attending Dr: Tay Valverde MD ? Ordering Physician: Tay Valverde MD ?? Date of Service: 10/09/24 ?? Procedure(s): US breast BI limited mamm only ?? Accession Number(s): [id number] ? cc: Tay Valverde MD ? EXAMINATION: [...] DD/ 1315 ? TD/TT: 10/09/24 1343 ? Dough Panner: ? Procedure Note Jose Angel, Avis - 10/09/2024 [facility] [address] [place] [address] Ultrasound Report Signed Patient: Omaira Yung KMR#: [id number] : 1980Acct:[id number] Age/Sex: 44 / FADM Date: 10/09/24 Loc: HO.MAMMO Attending Dr: Tay Valverde MD Ordering Physician: Tay Valverde MD Date of Service: 10/09/24 Procedure(s): breast BI limited mamm only Accession Number(s): [id number] cc: Tay Valverde MD EXAMINATION: MM DIAGNOSTIC [...] 10/09/24 1347 DD/ 1315 TD/TT: 10/09/24 1343 Dough Panner: Tay Valverde MD [facility] PROCEDURES Edited Result - Final * Fecal Globin by Immunochemistry (08/10/2022 12:00 AM EST) Fecal Globin By Immunochemistry SEE NOTE [employer] [email or web address] Comment: ??FECAL GLOBIN BY IMMUNOCHEMISTRY ?Micro Number: ?[id number] ??Test Status: ? Final ??Specimen Source: ?? Insure (tm) fobt test card ??Specimen Quality: ??Adequate ??Fecal Globin: ?Not Detected 08/10/2022 08/22/2022 11: 22 PM EST Narrative [facility] - 08/24/2022 12:35 PM EST FASTING: UNKNOWN us Tay Valverde MD LAB BODY FLUIDS AND STOOLS ORDER DANE Final Result Performing Organization Address City/[facility]/ZIP Co de Phone Number [facility] [address], [place] [address] [employer] [facility] [address], [place] [address] * HEPATITIS C AB W/REFL TO HCV [...] a test for HCV RNA (test code 11113) is suggested. ?? For additional information please refer to http://education.Talkbits/faq/QHG71j2 (This link is being provided for informational/ educational purposes only.) ?? 06/28/2022 10:0 6 AM EDT Aty Name HISTORICAL/NON ORDERABLE LABS Fi nal Result CONVERTED LEGACY LABS * Hm Pap Smear (10/01/2021) Pap Negative for intraephithelial lesion or malignancy Negative for intraephithelial lesion or malignancy, Other HPV Undetected [facility] External Provider HEALTH MAINTENANCE Final Result from Last 3 Months or Most Recently Relevant to Health Maintenance Insurance [facility] C3 HSN FULL DENTAL-[facility] MEDICAID STAND ADULT Care Teams Residential Coordinator Relationship Specialty Start Date End Date Name, MD Tay [address] [place] [address] PCP - General Family Medicine 02/01/16
--- OUTSIDE RECORDS SUMMARY | 2025-01-27 13:53 | XMS_ITS | Clinical Summary ---
Author Organization [employer] [facility] Address [address] [place] [phone] Care Team Providers Care Pet Sitting Name Role Phone Name, Tay DUARTE Primary Care Provider [phone] Surgical History Surgery Date Site/Laterality Comments CARPAL [...] age to complete this topic Care Teams Pet Sitting Relationship Specialty Start Date End Date Name, MD Tay [address] [place] [address] PCP - General Internal Medicine 03/23/12
--- OUTSIDE RECORDS SUMMARY | 2025-01-27 13:53 | XMS_ITS | Encounter Summary ---
Author Organization [employer] Address [address] 7t [place] [address] Care Team Providers Care Hydraulic Rubbish Compactor Mechanic Name Role Phone Name, Tay DUARTE Primary Care Provider [phone] Encounter Details Date Type Department Care Team ([facility] st Contact Info) Description 10/18/2023 Abstract [facility] MEDICINE [address] [place], [place] [phone] Name, MD Tay [address] [place] [address] Social History Tobacco Use Types Packs/Day Years [...] Description 02/21/2025 4:00 PM EDT Office Visit [address] [address] Chanel Almaraz MD [address] [place] [address] 05/06/2025 11:00 AM EDT Office Visit [address] [address] Name, MD Tay [address] [place] [address] documented as of this encounter Visit Diagnoses Not on filedocumented in this encounter Care Teams Hydraulic Rubbish Compactor Mechanic Relationship Specialty Start Date End Date Tay Valverde MD [address] [place] [address] PCP - General Family Medicine 02/01/16 documented as of this encounter
--- OUTSIDE RECORDS SUMMARY | 2025-01-27 13:53 | XMS_ITS | Encounter Summary ---
Author Organization [employer] Address [address] [place] [address] 7t [place] [address] Care Team Providers Care Core Shaper Name Role Phone Name, Tay DUARTE Primary Care Provider [phone] Reason for Visit * Reason Comments Med Refill Encounter Details Date Type Department Care Team (Late Contact Info) Description 01/19/2023 Refill [facility] MEDICINE [address] [place] [phone] Name, MD Tay [address] [place] [address] [phone] Social History Tobacco Use Types Packs/Day Years [...] Upcoming Encounters Date Type Department Care Team ([facility] Contact Info) Description 02/21/2025 4:00 PM EDT Office Visit [facility] MEDICINE [address] [place] [phone] Chanel Almaraz MD [address] [place] [address] 05/06/2025 11:00 AM EDT Office Visit [facility] MEDICINE [address] [place] [phone] Name, MD Tay [address] [place] [address] documented as of this encounter Visit Diagnoses Not on filedocumented in this encounter Care Teams Core Shaper Relationship Specialty Start Date End Date Name, MD Tay [address] [place] [address] PCP - General Family Medicine 02/01/16 documented as of this encounter
--- OUTSIDE RECORDS SUMMARY | 2025-01-27 13:53 | XMS_ITS | Encounter Summary ---
Author Organization [employer] Address [address] 7t [place] [address] Care Team Providers Care Motel Food Service Supervisor Name Role Phone Name, Tay DUARTE Primary Care Provider [phone] Reason for Visit * Reason Comments Med Refill Encounter Details Date Type Department Care Team ([facility] st Contact Info) Description 10/18/2023 Refill [facility] MEDICINE [address] [place] [address] Name, MD Tay [address] [place], [place] [phone] Social History Tobacco Use Types Packs/Day Years [...] 02/21/2025 4:00 PM EDT Office Visit [facility] MEDICINE [address] [place] [phone] Chanel Almaraz MD [address] [place] [address] 05/06/2025 11:00 AM EDT Office Visit [facility] MEDICINE [address] [place] [address] Name, MD Tay [address] [place] [address] documented as of this encounter Visit Diagnoses Not on filedocumented in this encounter Care Teams Motel Food Service Supervisor Relationship Specialty Start Date End Date Tay Valverde MD [address] [place] [phone] PCP - General Family Medicine 02/01/16 documented as of this encounter
--- OUTSIDE RECORDS SUMMARY | 2025-01-27 13:53 | XMS_ITS | Encounter Summary ---
Author Organization [employer] Address [address] [place] [address] 7t [place] [address] Care Team Providers Care Research Coordinator Name Role Phone Name, Tay DUARTE Primary Care Provider [phone] Encounter Details Date Type Department Care Team (Late st Contact Info) Description 10/17/2022 Orders Only [facility] [address] [place] [address] Lilian Rodriguez LPN Social History Tobacco Use [...] Description 02/21/2025 4:00 PM EDT Office Visit [facility] MEDICINE [address] [place] [address] Chanel Almaraz MD [address] [place] [address] 05/06/2025 11:00 AM EDT Office Visit [facility] MEDICINE [address] [place] [address] [phone] Tay Valverde MD [address] [place] [address] documented as of this encounter Visit Diagnoses Not on filedocumented in this encounter Care Teams Research Coordinator Relationship Specialty Start Date End Date Name, MD Tay [address] [place] [address] PCP - General Family Medicine 02/01/16 documented as of this encounter
--- OUTSIDE RECORDS SUMMARY | 2025-01-27 13:53 | XMS_ITS | Encounter Summary ---
Author Organization [facility] Address [address] [place] [address] 7 [place] [address] Care Team Providers Care Tank Truck Milk Receiver Name Role Phone NameTay MD Primary Care Provider [phone] Encounter Details Date Type Department Care Team (Latest Contact Info) Description 04/13/2021 Abstract [facility] CONVERSIONS Dental, Provider, DDS Social History Tobacco [...] Description 02/21/2025 4:00 PM EDT Office Visit [facility] MEDICINE [address] [place] [phone] Chanel Almaraz MD [address] [place] [address] 05/06/2025 11:00 AM EDT Office Visit [facility] MEDICINE [address] [place] [address] Tay Valverde MD [address] [place] [address] documented as of this encounter Visit Diagnoses Not on filedocumented in this encounter Care Teams Tank Truck Milk Receiver Relationship Specialty Start Date End Date Tay Valverde MD [address] [place] [phone] PCP - General Family Medicine 02/01/16 documented as of this encounter
--- OUTSIDE RECORDS SUMMARY | 2025-01-27 13:53 | XMS_ITS | Clinical Summary ---
Author Organization [facility] Address [address] [place] [address] Care Team Providers Care Head Counselor Name Role Phone Unavailable Primary Care Provider [...] Plan of Treatment Not on file Insurance [facility] MEDICAID DENTAL
[2025-01-27] MEDS: iohexoL 350 MG/ML 100 ML INFUS..BTL IV (15:12)
== END 2025-01-27 13:50 | disposition home or self-care (01) ==
LOC: HO.CT 13:49
PROVIDERS: PCP Internal Medicine Geriatric Medicine; Visit Provider Internal Medicine Geriatric Medicine
DX: R91.1 Solitary pulmonary nodule (principal)
CPT/HCPCS: 71260; Q9967

== ENCOUNTER → 2025-01-27 13:52 | Outpatient (BNV) | payer MEDICAID, SELFPAY | PROVIDERS: PCP Internal Medicine Geriatric Medicine; Visit Provider Radiology Diagnostic Radiology | DX: R91.1 Solitary pulmonary nodule (principal); K76.0 Fatty (change of) liver, not elsewhere classified; N60.01 Solitary cyst of right breast | CPT/HCPCS: 71260 ==

== ENCOUNTER 2025-06-13 09:48 | Outpatient (REF) | payer MEDICAID, SELFPAY ==
--- NOTE | ~2025-06-13 | MM_ITS ---
EXAMINATION: MM DIAGNOSTIC DIGITAL BREAST TOMOSYNTHESIS, BILATERAL Limited right breast ultrasound. CLINICAL INFORMATION: Soft tissue nodule in the upper right breast middle to posterior depth on recent chest CT January 27, 2025. Diagnostic mammogram and ultrasound evaluation. COMPARISON: Mammography: Comparison is made with relevant prior exams. TECHNIQUE: Digital breast mammography with tomosynthesis is performed in both the craniocaudal and mediolateral oblique views along with computer-aided detection (CAD). FINDINGS: There are scattered areas of fibroglandular density. Bilateral scattered asymmetries are stable. There are no significant masses, abnormal calcifications, or other abnormalities. Targeted color Doppler ultrasound scanning from 9- 3:00 in the superior right breast demonstrates normal. Glandular breast tissue. There is no sonographic abnormal finding. Results are provided to the patient at time of visit by the technologist. MM/MM tomosynthesis diagnostic BI IMPRESSION: Left: Negative. Right: No mammographic or sonographic abnormal finding to account for the soft tissue/cystic area seen on chest CT January 27, 2025. This area likely represented an area of tissue overlap oval scattered asymmetries on mammography are stable. ASSESSMENT: BI-RADS Category 2: Benign RECOMMENDATION: 1 year F/U This patient's information was entered into a reminder system with a target due date for their next mammogram. Electronically signed by: Naomie Barnard DO 06/13/2025 12:35 PM EDT
--- OUTSIDE RECORDS SUMMARY | 2025-06-13 10:24 | XMS_ITS | Clinical Summary ---
Author Organization [employer] Address [address] [place] [address] 7[address] [place] [address] Care Team Providers Care Weigher And Mixer Name Role Phone Name, Tay DUARTE Primary Care Provider Allergies No known active allergies Medications traZODone [...] a meal 36 tablet 01/20/20 23 Active triamcinolone (Kenalog) 0.1 % creamIndications:N ummular dermatitis,Hand dermatitis Apply topically if needed in the morning and at bedtime (pain and swelling). Mix with Cerave 80 g 2 02/09/20 24 Active cyclobenzaprine (Flexeril) 10 MG tablet Take 1 tablet (10 mg) by mouth every 8 (eight) hours. 90 tablet 10/01/19 25 Active celecoxib (CeleBREX) 200 MG capsule TAKE 1 CAPSULE(200 MG) BY MOUTH TWICE DAILY 60 capsule 03/20/20 25 Active DULoxetine (Cymbalta) [address] capsule TAKE 1 CAPSULE BY MOUTH EVERY DAY. DO NOT CRUSH OR CHEW. 30 capsule 11 03/20/20 25 Active valACYclovir (Valtrex) 500 MG tablet TAKE 1 TABLET BY MOUTH TWICE DAILY FOR 3 DAYS 6 tablet 5 03/20/20 25 Active pantoprazole (ProtoNix) 40 MG EC tabletIndications: Pes anserinus bursitis of left knee TAKE 1 TABLET BY MOUTH EVERY DAY. DO NOT CRUSH, CHEW OR SPLIT. 90 tablet 3 03/20/20 25 Active cholecalciferol (Vitamin D3) 25 MCG (1000 UT) tablet TAKE 1 TABLET BY MOUTH EVERY MORNING 90 tablet 3 03/20/20 25 Active Multiple Vitamin (multivitamin) tablet TAKE 1 TABLET BY MOUTH EVERY DAY 90 tablet 3 03/20/20 25 Active neomycin-polymyxin -dexAMETHasone 0.1 % ointmentIndication s:Apply 1/2 inch ribbon inside left lower eyelid 4 times daily for 1 week Apply 1/2 inch ribbon inside left lower eyelid 4 times daily for 1 week 3.5 g 1 05/05/20 25 025 Discontin ued(Thera py completed ) fluorometholone (FML) 0.1 % ophthalmic suspensionIndicati ons:Viral conjunctivitis of both eyes Administer 1 drop into both eyes 3 times daily for 10 days. 10 mL 05/09/20 25 025 Discontin ued(Thera py completed ) Active Problems Problem Noted Date Diagnosed Date Fibroid uterus 10/27/2022 Fibromyalgia 10/27/2022 Genital herpes simplex 02/15/2018 Joint pain 04/17/2017 Dyshidrotic eczema 04/17/2017 Bursitis of knee 04/17/2017 Vitamin D deficiency 02/14/2017 Knee pain 02/01/2016 Depressive disorder 02/01/2016 Carpal tunnel syndrome 02/01/2016 Anxiety 02/01/2016 Resolved Problems Problem Noted Date Diagnosed Date Resolved Date Acute bacterial conjunctivitis of right eye 04/30/2025 05/01/2025 Assessment & Plan (04/30/2025 7:42 PM EDT): I have prescribed for patient erythromycin ophthalmic ointment to apply every 6 hours for 10 days I put a stat referral for eye care for her to be seen tomorrow if possible, I instructed that if this is not possible to go to the emergency room to be reevaluated Pain of breast 05/18/2018 02/02/2024 Body aches 02/14/2017 07/05/2023 Weakness of hand 02/01/2016 02/02/2024 Encounters Date Type Department Care Team Description 05/26/2025 11:30 AM EDT Office Visit [facility] [address] [place] [address] Carrie Rico, OD Viral conjunctivitis of both eyes (Primary Dx) 05/26/2025 Travel 05/20/2025 Telephone [facility] [address] [place] [address] Tay Valverde MD 05/19/2025 11:30 AM EDT Office Visit [facility] [address] [place] [address] Carrie Rico, OD Viral conjunctivitis of both eyes (Primary Dx) 05/19/2025 Telephone [facility] [address] [place] [address] Tay Valverde MD telephone call 05/19/2025 Travel 05/13/2025 11:30 AM EDT Office Visit [facility] [address] [place] [address] Carrie Rico, OD Viral conjunctivitis of both eyes (Primary Dx) 05/13/2025 Travel 05/09/2025 11:30 AM EDT Office Visit [facility] [address] [place] [address] Carrie Rico, OD Viral conjunctivitis of both eyes (Primary Dx) 05/09/2025 Orders Only [facility] [address] [place] [address] Tay Valverde MD 05/09/2025 Travel 05/06/2025 11:00 AM EDT Office Visit [facility] [address] [place] [address] Tay Valverde MD Cyst of right breast (Primary Dx); Thyroid nodule; Acute bacterial conjunctivitis of right eye; Vaginal yeast infection 05/06/2025 Travel 05/05/2025 10:00 AM EDT Office Visit [facility] [address] [place] [address] Carrie Rico, OD Viral conjunctivitis of both eyes (Primary Dx) 05/05/2025 Telephone [facility] [address] [place] [address] Massimo Maradiaga MA chart prep 05/05/2025 Travel 05/01/2025 10:45 AM EDT Office Visit [facility] [address] [place] [address] Jacky Carrie, OD Viral conjunctivitis of right eye (Primary Dx); Preseptal cellulitis of right eye 05/01/2025 Travel 04/30/2025 5:20 PM EDT Office Visit [facility] [address] [place] [address] Mónica Naik MD Acute bacterial conjunctivitis of right eye (Primary Dx) 04/30/2025 Travel 04/24/2025 Telephone [facility] [address] [place] [address] NameTay MD 03/20/2025 Refill [facility] [address] [place] [address] Name, MD Tay Pes anserinus bursitis of left knee from Last 3 Months Immunizations Immunization Administration [...] housing situation today? I have demetrius jason 05/06/[address] you li ve. Do you have problems with any of the following? None of the above 05/06/2025 Food Insecurity Answer Date Recorded Within the past 12 months, y ou worried that your food would run out before you got money to buy more: Never True 05/06/2025 Within the past 12 months,th e food you bought just didn't last and you didn't have enough money to get more: Never True Transportation Answer Date Recorded In the past 12 months, has l ack of transportation kept you from medical appts, meetings, work or from getting things needed for daily living? No 05/06/2025 Utilities Answer Date Recorded In the past 12 months, has t he electric, gas, oil or water company threatened to shut off services in your home? No 05/06/2025 Depression Answer Date Recorded Patient Health Questionnaire-2 Score 2 05/31/2024 Internet Access Answer Date Recorded Internet Access Q1 Yes 05/06/2025 Internet Access Q2 Not on file 05/06/2025 Comments Unknown Sex and Gender Information Value Date Recorded Sex Assigned at Female 07/11/2022 10:23 AM EDT Legal Sex Female 10:23 AM EDT Gender Identity Female 07/11/2022 10:23 AM EDT Sexual Orientation Straight 07/11/2022 10 :23 AM EDT Last Filed Vital Signs Vital Sign Reading Time Taken Comments Blood Pressure 120/86 05/06/2025 10:58 AM EDT Pulse 75 05/06/2025 10:58 AM EDT Temperature 36.2 C (97.2 F) 05/06/2025 10:58 AM EDT Respiratory Rate 18 05/06/2025 10:5 8 AM EDT Oxygen Saturation 99% 05/06/2025 10: 58 AM EDT Inhaled Oxygen Concentration - - Weight 88.8 kg (195 lb 12.8 oz) 025 10:58 AM EDT Height 162.6 cm (5' 4 ) 05/06/2025 10:5 8 AM EDT Body Mass Index 33.61 05/06/2025 10:58 AM EDT Plan of Treatment Upcoming Encounters Date Type Department Care Team (Late st Contact Info) Description 07/25/2025 10:30 AM EST Office Visit [facility] [address] [place] [address] Name, MD Tay [address] [place] [address] 08/22/2025 4:00 PM EST Office Visit [facility] [address] [place] [address] Chanel Almaraz MD [address] [place] [address] 08/28/2025 2:00 PM EST Office Visit [facility] [address] [place] [address] TarkaCarrie, OD [address] [place] [address] Health Maintenance Due Date Last Done Comments [...] 08/10/2023 08/10/2022 Dental X-Ray: Bitewings 12/16/2023 12/14/2022 Pap Smear 10/01/2024 10/01/2021 COVID-19 Vaccine ( season) 2025 01/19/2021, 12/29/2020, 12/29/2020 Influenza Vaccine (#1) 2025 , 07/05/2023, 06/28/2022, Additional history exists Depression Screening 05/31/2025 05/31/2024, 05/31/20 Alcohol/Substance Use Screening 10/01/2025 10/01/2024 Mammogram 10/09/2025 10/09/2024, 09/12, 11/03/2023, Additional history exists Disability Screening 05/06/2026 05/06/2025 SDOH Screening 05/06/2026 05/06/2025 Tobacco Screening 05/06/2026 05/06/2025 Cervical Cancer Screening 10/01/2026 HPV/Cotest 10/01/2026 10/01/2021 Zoster Vaccines (1 of 2) 2029 DTaP/Tdap/Td Vaccines (3 - Td or Tdap) 07/05/2033 07/05/2023, 06/20/2012 RSV Patients and Patients Aged 60 years or older (1 - 1-dose 75+ series) 2054 Hepatitis C Screening Completed 06/28/2022 HIB Vaccines Aged Out No longer eligi [...] Years) and At-Risk Patients (6 to 49) Years Aged Out No longer eligible based on [...] PM EST Narrative 10/09/2024 1:50 PM EST [facility] [address] [place] [address] Ultrasound Report Signed Patient: Omaira Yung MR#: [id number] : 1980 Acct:[id number] Age/Sex: 44 / F ADM Date: 10/09/24 Loc: HO.MAMMO Attending Dr: Tay Valverde MD Ordering Physician: Tay Valverde MD Date of Service: 10/09/24 Procedure(s): US breast BI limited mamm only Accession Number(s): [id number] cc: Tay Valverde MD EXAMINATION: MM DIAGNOSTIC [...] 10/09/24 1347 DD/ 1315 TD/TT: 10/09/24 1343 Electronic Gluing Machine Operator: Procedure Note Donotuseinterpreter, Image - 10/09/2024 [facility] [address] [place] [address] Ultrasound Report Signed Patient: Omaira Yung KMR#: [id number] : 1980Acct:[id number] Age/Sex: 44 / FADM Date: 10/09/24 Loc: HO.MAMMO Attending Dr: Tay Valverde MD Ordering Physician: Tay Valverde MD Date of Service: 10/09/24 Procedure(s): US breast BI limited mamm only Accession Number(s): [id number] cc: Tay Valverde MD EXAMINATION: MM DIAGNOSTIC [...] 10/09/24 1347 DD/ 1315 TD/TT: 10/09/24 1343 Electronic Gluing Machine Operator: Tay Valverde MD [facility] US PROCEDURES Edited Result - Final * Fecal Globin by Immunochemistry (08/10/2022 12:00 AM EST) Fecal Globin By Immunochemistry SEE NOTE [employer] [place] [facility] Comment: FECAL GLOBIN BY IMMUNOCHEMISTRY Micro Number: [id number] Test Status: Final Specimen Source: Insure (tm) fobt test card Specimen Quality: Adequate Fecal Globin: Not Detected 08/10/2022 08/22/2022 11: 22 PM EST Narrative [facility] - 08/24/2022 12:35 PM EST FASTING: UNKNOWN Tay Valverde MD LAB BODY FLUIDS AND STOOLS ORDER DANE Final Result [employer] [address] [place] [address], [place] [address] [employer] [place] [facility] [address], [place] [address] * HEPATITIS C AB W/REFL TO HCV RNA, QN, PCR (06/28/2022 10:06 AM EDT) HEPATITIS C ANTIBODY NON-REACTI VE NON-REACT JOSH CONVERTED LEGACY LABS INDEX 0.06 <1.00 CONVERTED LEGACY LABS Comment: HCV antibody was non-reactive. There is no laboratory evidence of HCV infection. In most cases, no further action is required. However, if recent HCV exposure is suspected, a test for HCV RNA (test code 43749) is suggested. For additional information please refer to http://[employer]/faq/LLC31w7 (This link is being provided for informational/ educational purposes only.) 06/28/2022 10:0 6 AM EDT Tay Valverde MD HISTORICAL/NON ORDERABLE LABS Fi nal Result CONVERTED LEGACY LABS * Pap Smear (10/01/2021) Pap Negative for intraephithelial lesion or malignancy Negative for intraephithelial lesion or malignancy, Other HPV Undetected [facility] External Provider HEALTH MAINTENANCE Final Result from Last 3 Months or Most Recently Relevant to Health Maintenance Insurance [facility] MEDICAID STAND ADULT Care Teams Weigher And Mixer Relationship Specialty Start Date End Date Name, MD Tay [address] [place] [address] PCP - General Family Medicine 02/01/16
--- OUTSIDE RECORDS SUMMARY | 2025-06-13 10:24 | XMS_ITS | Encounter Summary ---
Author Organization [employer] Address [address] [place] [address] Care Team Providers Care Hand Edger Name Role Phone Name, Tay DUARTE Primary Care Provider [phone] Encounter Details Date Type Department Care Team ([facility] st Contact Info) Description 10/18/2023 Abstract [facility] [address] [place], [place] [phone] Name, MD Tay [address] [place] [address] Social History Tobacco Use Types Packs/Day Years [...] Description 07/25/2025 10:30 AM EST Office Visit [facility] [address] [place] [address] NameTay MD [address] [place] [address] 08/22/2025 4:00 PM EST Office Visit [facility] [address] [place] [address] Chanel Almaraz MD [address] [place] [address] 08/28/2025 2:00 PM EST Office Visit [facility] [address] [place] [address] Carrie Rico, OD [address] [place] [address] documented as of this encounter Visit Diagnoses Not on filedocumented in this encounter Care Teams Hand Edger Relationship Specialty Start Date End Date NameTay MD [address] [place] [address] PCP - General Family Medicine 02/01/16 documented as of this encounter
--- OUTSIDE RECORDS SUMMARY | 2025-06-13 10:24 | XMS_ITS | Clinical Summary ---
Author Organization [facility] Address [address] [place] [address] Care Team Providers Care Psychotherapist Name Role Phone Unavailable Primary Care Provider [...] Plan of Treatment Not on file Insurance [facility] MEDICAID DENTAL
--- OUTSIDE RECORDS SUMMARY | 2025-06-13 10:24 | XMS_ITS | Encounter Summary ---
Author Organization [employer] Address [address] [place] [address] Care Team Providers Care Compensation/Benefits Specialist Name Role Phone Name, Tay DUARTE Primary Care Provider [phone] Reason for Visit * Reason Onset Date Comments Med Change Request 10/18/2023 Encounter Details Date Type Department Care Team ([facility] st Contact Info) Description 10/18/2023 Telephone [facility] [address] [place] [address] Name, MD Tay [address] [place] [address] Med Change Request Social History Tobacco Use [...] the past 12 months, has t he [employer], gas, oil or water company threatened to [...] up medication. * Telephone Encounter - Adri Thompsno - 10/18/2023 11:28 AM EST Tc from pt states lactulose (Chronulac) 10 GM/15ML solution is not covered by insurance and is requesting an alternative. documented in this encounter Plan of Treatment Upcoming Encounters Date Type Department Care Team (Late st Contact Info) Description 07/25/2025 10:30 AM EST Office Visit [facility] [address] [place] [phone] Name, MD Tay [address] [place] [address] 08/22/2025 4:00 PM EST Office Visit [facility] [address] [place] [address] Chanel Almaraz MD [address] [place] [address] 08/28/2025 2:00 PM EST Office Visit [facility] [address] [place] [address] Carrie Rico OD [address] [place] [address] documented as of this encounter Visit Diagnoses Not on filedocumented in this encounter Care Teams Compensation/Benefits Specialist Relationship Specialty Start Date End Date Name, MD Tay [address] [place] [address] PCP - General Family Medicine 02/01/16 documented as of this encounter
--- OUTSIDE RECORDS SUMMARY | 2025-06-13 10:24 | XMS_ITS | Encounter Summary ---
Author Organization [employer] Address [address] 7t [place] [address] Care Team Providers Care Garbage Collection Supervisor Name Role Phone Name, Tay DUARTE Primary Care Provider [phone] Reason for Visit * Reason Comments Med Refill Encounter Details Date Type Department Care Team ([facility] st Contact Info) Description 10/18/2023 Refill [facility] [address] [place] [address] Name, MD Tay [address] [place], [place] [phone] Social History Tobacco Use Types Packs/Day Years [...] Description 07/25/2025 10:30 AM EST Office Visit [facility] [address] [place] [address] NameTay MD [address] [place] [address] 08/22/2025 4:00 PM EST Office Visit [facility] [address] [place] [address] Chanel Almaraz MD [address] [place] [address] 08/28/2025 2:00 PM EST Office Visit [facility] [address] [place] [address] Carrie Rico, OD [address] [place] [address] documented as of this encounter Visit Diagnoses Not on filedocumented in this encounter Care Teams Garbage Collection Supervisor Relationship Specialty Start Date End Date NameTay MD [address] [place] [address] PCP - General Family Medicine 02/01/16 documented as of this encounter
--- OUTSIDE RECORDS SUMMARY | 2025-06-13 10:24 | XMS_ITS | Encounter Summary ---
Author Organization [employer] Address [address] [place] [address] 7t [place] [address] Care Team Providers Care Sterile Supply Technician Name Role Phone Name, Tay DUARTE Primary Care Provider [phone] Encounter Details Date Type Department Care Team (Late st Contact Info) Description 10/17/2022 Orders Only [facility] [address] [place] [address] Lilian Rodriguez LPN Social History Tobacco Use [...] AM EST Office Visit [facility] [address] [place] [address] Name, MD Tay [address] [place] [address] 08/22/2025 4:00 PM EST Office Visit [facility] [address] [place] [address] Chanel Almaraz MD [address] [place] [address] 08/28/2025 2:00 PM EST Office Visit [facility] [address] [place] [address] Carrie Rico, OD [address] [place] [address] documented as of this encounter Visit Diagnoses Not on filedocumented in this encounter Care Teams Sterile Supply Technician Relationship Specialty Start Date End Date Name, MD Tay [address] [place] [address] PCP - General Family Medicine 02/01/16 documented as of this encounter
--- OUTSIDE RECORDS SUMMARY | 2025-06-13 10:24 | XMS_ITS | Encounter Summary ---
Author Organization [employer] Address [address] [place] [address] 7 [place] [address] Care Team Providers Care Ship/Rec/Doc Control Name Role Phone Name, Tay DUARTE Primary Care Provider [phone] Reason for Visit * Reason Comments Med Refill Encounter Details Date Type Department Care Team (Late Contact Info) Description 01/19/2023 Refill [facility] [address] [place] [address] NameTay MD [address] [place] [address] [phone] Social History Tobacco Use Types Packs/Day Years [...] Upcoming Encounters Date Type Department Care Team ([facility] Contact Info) Description 07/25/2025 10:30 AM EST Office Visit [facility] [address] [place] [address] [phone] NameTay MD [address] [place] [address] 08/22/2025 4:00 PM EST Office Visit [facility] [address] [place] [address] Chanel Almaraz MD [address] [place] [address] 08/28/2025 2:00 PM EST Office Visit [facility] [address] [place] [address] Carrie Rico, OD [address] [place] [address] documented as of this encounter Visit Diagnoses Not on filedocumented in this encounter Care Teams Ship/Rec/Doc Control Relationship Specialty Start Date End Date Name, MD Tay [address] [place] [address] PCP - General Family Medicine 02/01/16 documented as of this encounter
--- OUTSIDE RECORDS SUMMARY | 2025-06-13 10:24 | XMS_ITS | Encounter Summary ---
Author Organization [employer] Address [address] [place] [address] 7t [place] [address] Care Team Providers Care Counter Checker Name Role Phone Name, Tay DUARTE Primary Care Provider [phone] Encounter Details Date Type Department Care Team (Latest Contact Info) Description 04/13/2021 Abstract [facility] CONVERSION[facility] Dental, Provider, DDS Social History Tobacco [...] Description 07/25/2025 10:30 AM EST Office Visit [facility] [address] [place] [address] Name, MD Tay [address] [place] [address] 08/22/2025 4:00 PM EST Office Visit [facility] [address] [place] [address] Chanel Almaraz MD [address] [place] [address] 08/28/2025 2:00 PM EST Office Visit [facility] [address] [place] [address] Carrie Rico, OD [address] [place] [address] documented as of this encounter Visit Diagnoses Not on filedocumented in this encounter Care Teams Counter Checker Relationship Specialty Start Date End Date Name, MD Tay [address] [place] [address] PCP - General Family Medicine 02/01/16 documented as of this encounter
--- OUTSIDE RECORDS SUMMARY | 2025-06-13 10:25 | XMS_ITS | Clinical Summary ---
Author Organization [employer] [facility] Address [address] [place] [address] Care Team Providers Care Customer Service Leader Name Role Phone Name, Tay DUARTE Primary Care Provider [phone] Surgical History Surgery Date Site/Laterality Comments CARPAL [...] (2 - Td or Tdap) 06/20/2022 06/20/2012 Depression Screening 09/11/2024 COVID-19 Vaccine (2023-2 5 season) 2025 Influenza Vaccine (#1) 2025 06/20/2012 RSV Immunization Adult Patie nts (1 - 1-dose 75+ series) 2054 HIB Vaccines Aged Out No longer eligi [...] 5 Years) and At-Risk Patients (6 to 49 Years) Aged Out No longer eligi ble based on patient's age to complete this topic RSV Immunization Patients Un lokesh 20 months Aged Out No longer eligible b ased on patient's age to complete this topic Varicella Vaccines Aged Out No longer eligible based on patient's age to complete this topic Care Teams Customer Service Leader Relationship Specialty Start Date End Date Name, MD Tay [address] [place] [address] PCP - General Internal Medicine 03/23/12
== END 2025-06-13 09:49 | disposition home or self-care (01) ==
LOC: HO.MAMMO 09:48
PROVIDERS: PCP Internal Medicine Geriatric Medicine; Visit Provider Internal Medicine Geriatric Medicine
DX: N60.01 Solitary cyst of right breast (principal)
CPT/HCPCS: 76642; 77062; 77066

== ENCOUNTER → 2025-06-13 10:00 | Outpatient (BNV) | payer MEDICAID, SELFPAY | PROVIDERS: PCP Internal Medicine Geriatric Medicine; Visit Provider Internal Medicine | DX: R92.8 Other abnormal and inconclusive findings on diagnostic imaging of breast (principal) | CPT/HCPCS: 76642; 77062; 77066 ==

== ENCOUNTER 2025-06-23 13:44 | Outpatient (REF) | payer MEDICAID, SELFPAY ==
--- NOTE | ~2025-06-23 | US_ITS ---
CLINICAL HISTORY: thyroid nodule US Thyroid Comparison: None provided Findings: The thyroid parenchyma is normal echotexture. Right thyroid 6.3 x 1.6 x 1.7 cm. Left thyroid 5.3 x 1.4 x 1.3 cm. Thyroid isthmus 5 mm. There is a 9 mm cyst within the right lobe of the thyroid gland. This is not suspicious and does not require follow-up. There are no suspicious thyroid nodules. There is a 1.8 x 0.6 x 0.7 cm lymph node within the soft tissues of the left side of the neck and there is a 2.1 x 0.5 x 0.4 cm lymph node within the soft tissues of the right side of the neck. Both lymph nodes are normal morphology and contain fatty katja. These are most compatible with inflammatory lymph nodes. Impression: 1. There is no suspicious thyroid nodule. [employer] TI-RADS Categories TR1 and TR2 nodules do not have follow-up recommendations TR3 (FNA >= 2.5cm, F/U >= 1.5cm at 1, 3, and 5 yrs) TR4 (FNA >= 1.5cm, F/U >= 1cm at 1, 2, 3, and 5 yrs) TR5 (FNA >= 1cm, F/U >= 0.5cm annually for up to 5 yrs) This document has been electronically signed by: Tammy Alfaro MD on 06/23/2025 14:37:44
== END 2025-06-23 13:45 | disposition home or self-care (01) ==
LOC: HO.US 13:44
PROVIDERS: PCP Internal Medicine Geriatric Medicine; Visit Provider Internal Medicine Geriatric Medicine
DX: E04.1 Nontoxic single thyroid nodule (principal)
CPT/HCPCS: 76536

== ENCOUNTER → 2025-06-23 13:47 | Outpatient (BNV) | payer MEDICAID, SELFPAY | PROVIDERS: PCP Internal Medicine Geriatric Medicine; Visit Provider Radiology Diagnostic Radiology | DX: E04.1 Nontoxic single thyroid nodule (principal) | CPT/HCPCS: 76536 ==

== ENCOUNTER 2025-07-30 11:21 | Outpatient (REF) | payer MEDICAID, SELFPAY ==
--- OUTSIDE RECORDS SUMMARY | 2025-07-25 10:30 | XMS_ITS | Encounter Summary ---
Author Organization [employer] Address [address] [place] [address] 7[address] [place] [address] Care Team Providers Care Lay Out Machine Operator Name Role Phone Tay Valverde MD Primary Care Provider [phone] Reason for Referral * Consultation (Routine) - Closed Specialty Diagnoses / Procedures Referred By Narinder hackett Referred To Contact Gastroenterology Diagnoses Screening for colon cancer Tay Valverde MD [address] [place] [phone] Phone: tel: fax: [facility] [address], [address]rd [place] [address] Phone: tel: fax: Referral ID Status Reason Start Date Expiration Date V isits Requested Visits Authorized [id number] Closed Specialty Services Required 07/28/2025 07/25/2026 6 6 Reason for Visit * Reason Comments Annual Exam Encounter Details Date Type Department Care Team (Late st Contact Info) Description 07/25/2025 10:30 AM EST Office Visit [facility] [address] [place] [address] [phone] Tay Valverde MD [address] [place] [address] [phone] PE (physical exam), routine (Primary Dx); Encounter for immunization; Screening for diabetes mellitus; Screening for cholesterol level; Screening examination for STI; Screening for colon cancer Social History Tobacco Use Types Packs/Day Years Used Date Smoking Tobacco: Never Passive Smoke Exposure: Never Smokeless Tobacco: Never Alcohol Use Standard Drinks/Week Comments Yes 2 (1 standard drink = 0.6 oz pur e alcohol) Alcohol Answer Date Recorded How often do you have a drink containing alcohol ? 1 07/25/2025 How many drinks containing a lcohol do you have on a typical day when you are drinking? 0 07/25/2025 Frequency of Binge Drinking Not on file 07/12 Depression Answer Date Recorded Patient Health Questionnaire-9 Score 4 07/25/2025 Patient Health Questionnaire-9 Score 4 07/25/2025 Last PHQ-9: Questionnaire Data Not on file 1 09/24/2024 Housing Stability Answer Date Recorded What is [...] Answer Date Recorded Patient Health Questionnaire-2 Score 1 07/25/2025 Internet Access Answer Date Recorded Internet Access [...] Sign Reading Time Taken Comments Blood Pressure 128/86 07/25/2025 10:29 AM EST Pulse 62 07/25/2025 10:29 AM EST Temperature 36.7 C (98.1 F) 07/25/2025 10:29 AM EST Respiratory Rate 16 07/25/2025 10:29 AM EST Oxygen Saturation - - Inhaled Oxygen Concentration - - Weight 87.3 kg (192 lb 6.4 oz) 07/25/2025 10:29 AM EST Height 162.6 cm (5' 4 ) 07/25/2025 10:29 AM EST Body Mass Index 33.03 07/25/2025 10:29 AM EST documented in this encounter Functional Status * Over the past 2 weeks, how often have you been bothered by any of the following problems? Question Answer Date of Assessment Author Patient Health Questionnaire-2 Score 1 07/12 10:32 AM EST IvoryMarv rodriguez, [place] * Little interest or pleasure in doing things Answer Date of Assessment Author Not at all 07/25/2025 10:32 AM EST IvoryEdwina rodriguez uyomy, [place] * Feeling down, depressed, or hopeless Answer Date of Assessment Author Several days 07/25/2025 10:32 AM EST IvoryEdwina rodriguezyomy, [place] * Trouble falling or staying asleep, or sleeping too much Answer Date of Assessment Author Several days 07/25/2025 10:32 AM EST IvoryEdwina rodriguez u[place]omy, [place] * Feeling tired or having little energy Answer Date of Assessment Author Several days 07/25/2025 10:32 AM EST IvoryEdwina rodriguez u[place], [place] * Poor appetite or overeating Answer Date of Assessment Author Not at all 07/25/2025 10:32 AM EST IvoryEdwina rodriguez uyomy, [place] * Feeling bad about yourself - or that you are a failure or have let yourself or your family down Answer Date of Assessment Author Several days 07/25/2025 10:32 AM EST IvoryEdwina rodriguez uyomy, [place] * Trouble concentrating on things, such as reading the newspaper or watching television Answer Date of Assessment Author Not at all 07/25/2025 10:32 AM EST IvoryEdwina rodriguez uyomy, [place] * Moving or speaking so slowly that other people could have noticed? Or the opposite - being so fidgety or restless that you have been moving around a lot more than usual. Answer Date of Assessment Author Not at all 07/25/2025 10:32 AM EST IvoryEdwina rodriguez MA * Thoughts that you would be better off or hurting yourself in some way Answer Date of Assessment Author Not at all 07/25/2025 10:32 AM Edwina Silverio MA * Patient Health Questionnaire-9 Score Answer Date of Assessment Author 4 07/25/2025 10:32 AM Edwina Silverio MA * Over the last 2 weeks, how often have you been bothered by any of the following problems? Question Answer Date of Assessment Author Feeling nervous, anxious, or on edge 1 07/12 10:44 AM Marv Silverio MA Not being able to stop or co ntrol worrying 1 07/25/2025 10:44 AM Marv Silverio M A Worrying too much about diff erent things 2 07/25/2025 10:44 AM Marv Silverio M A Trouble relaxing 1 07/25/2025 10:44 AM Marv Silverio MA Being so restless that it is hard to sit still 0 07/25/2025 10:44 AM Marv Silverio M A Becoming easily annoyed or irritable 0 07/12 10:44 AM Marv Silverio MA Feeling afraid as if somethi ng awful might happen 2 07/25/2025 10:44 AM Marv Silverio M A JANE-7 Total Score 7 07/25/2025 10:44 AM Marv Silverio MA * How difficult have these problems made it for you to do your work, take care of things at home, or get along with other people? Answer Date of Assessment Author Not difficult at all 07/25/2025 10:32 AM Marv Blunt MA documented as of this encounter Progress Notes * Tay Valverde MD - 07/25/2025 10:30 AM EST Subjective Patient ID: Omaira Serna is a 45 y.o. female who presents for Annual Exam. Patient comes for a physical exam. She is asymptomatic. The patient agreed with the flu vaccinationtoday. Review of Systems Constitutional: Negative for chills and fever. HENT: Negative for sore throat. Respiratory: Negative for cough, shortness of breath and wheezing. Cardiovascular: Negative for chest pain, palpitations and leg swelling. Gastrointestinal: Negative for abdominal pain. Objective Vitals: 07/25/25 1029 BP: 128/86 BP Location: Left arm Patient Position: Sitting BP Cuff Size: Large adult Pulse: 62 Resp: 16 Temp: 98.1 ??F (36.7 ??C) TempSrc: Oral Weight: 192 lb 6.4 oz (87.3 kg) Height: 5' 4 (1.626 m) Physical Exam Constitutional: Appearance: Normal appearance. Cardiovascular: Rate and Rhythm: Normal rate and regular rhythm. Heart sounds: No murmur heard. No gallop. Pulmonary: Effort: Pulmonary effort is normal. No respiratory distress. Breath sounds: Normal breath sounds. No wheezing. Musculoskeletal: Right lower leg: No edema. Left lower leg: No edema. Neurological: Mental Status: She is alert. Assessment/Plan Diagnoses and all orders for this visit: PE (physical exam), routine Comments: Patient is recommended regular physical activity Avoid sweets and soda Flu vaccination today Check fasting blood work listed below Referral to GI for screening colonoscopy She is up-to-date with her Pap smear She is in a monogamous relationship and she is status post tubal ligation She is interested in STI screening that was ordered for her Orders: - TSH W/Reflex to FT4; Future - CBC auto differential; Future - Vitamin D, 25-Hydroxy, Total, Immunoassay; Future Encounter for immunization - FLU VACCINE TRIVALENT [id number] (Fluarix) 19 yrs + Screening for diabetes mellitus - Comprehensive Metabolic Panel; Future Screening for cholesterol level - Lipid Panel, Standard; Future Screening examination for STI Screening for colon cancer - HIV-1/2 Antigen and Antibodies, Fourth Generation, with Reflexes; Future - Hepatitis C Antibody with Reflex to HCV, RNA, Quantitative, Real-Time PCR; Future - Hepatitis B surface antigen, EIA; Future - Hepatitis B Surface Antibody, Qualitative; Future - RPR (Monitor) with Reflex to Titer; Future - Chlamydia/N. Gonorrhoeae RNA, TMA, Vaginal - Referral to Gastroenterology; Future Future Appointments Date Time Provider Department Center 08/22/2025 4:00 PM Chanel Almaraz MD [facility] 08/28/2025 2:00 PM Carrie Rico, [facility] documented in this encounter Plan of Treatment Upcoming Encounters Date Type Department Care Team (Late st Contact Info) Description 08/22/2025 4:00 PM EST Office Visit [facility] [address] [place] [phone] Chanel Almaraz MD [address] [place] [address] 08/28/2025 2:00 PM EST Office Visit [facility] [address] [place], [place] [phone] Carrie Rico OD [address] [place] [phone] 10/29/2025 11:30 AM EST Office Visit [facility] [address] [place] [phone] Tay Valverde MD [address] [place] [phone] Scheduled Orders Name Type Priority Associated Diagnoses Orde r Schedule HIV-1/2 Antigen and Antibodies, Fourth Generation, with Reflexes Lab Routine Screening for colon cancer Expected: 07/25/2025 (Approximate), Expires: 07/25/2026 Hepatitis C Antibody with Reflex to HCV, RNA, Quantitative, Real-Time PCR Lab Routine Screening for colon cancer Expected: 07/25/2025, Expires: 07/25/2026 Hepatitis B surface antigen, EIA Lab Routine Screening for colon cancer Expected: 07/25/2025 (Approximate), Expires: 07/25/2026 Hepatitis B Surface Antibody, Qualitative Lab Routine Screening for colon cancer Expected: 07/25/2025 (Approximate), Expires: 07/25/2026 RPR (Monitor) with Reflex to Titer Lab Routine Screening for colon cancer Expected: 07/25/2025, Expires: 07/25/2026 Chlamydia/N. Gonorrhoeae RNA, TMA, Vaginal Microbiology Routine Screening for colon cancer Ordered: 07/25/2025 Scheduled Referrals Name Type Priority Associated Diagnoses Order Schedule Referral to Gastroenterology Outpatient Referral Routine Screening for colon cancer Expected: 07/25/2025 (Approximate), Expires: 07/25/2026 documented as of this encounter Procedures Procedure Name Priority Date/Time Associated Diagnosis Comments VITAMIN D,25-OH,TOTAL,IA Routine 07/30/2025 11:26 AM EST PE (physical exam), routine TSH W/REFLEX TO FT4 Routine 07/30/2025 1 1:26 AM EST PE (physical exam), routine CBC WITH AUTO DIFFERENTIAL Routine 07/30/2025 11:26 AM EST PE (physical exam), routine LIPID PANEL, STANDARD Routine 07/30/2025 11:26 AM EST Screening for cholesterol level COMPREHENSIVE METABOLIC PANEL Routine 07/30/2025 11:26 AM EST Screening for diabetes mellitus documented in this encounter Results * Vitamin D, 25-Hydroxy, Total, Immunoassay (07/30/2025 11:26 AM EST) Vitamin D 25-OH Total 33.1 >30 ng/mL [facility] Comment: Health Based Reference Values*< 20 ng/mL [id number] ng/mL Insufficient> 30 ng/mL Sufficient*Rehana STALLINGS. N Engl J Med. 2007;357:266-280There is no well-established upper level of normal vitamin Dlevels. Some laboratories use 50 ng/mL as an upper limit ofnormal. However, toxicity is patient-dependent and may occurat any level. Careful correlation with the patient'spresentation is necessary and, if there is concern forvitamin D toxicity, treatment should be consideredirrespective of the serum level.Care must be taken in interpreting Vitamin D results fromdifferent laboratories and methodologies. Published datademonstrated that results from patients undergoinghemodialysis may show a negative bias when tested withvarious automated 25-OH vitamin D assays when compared toLC-MS/MS.When testing samples from patients whose predominant form ofVitamin D is Vitamin D2, such as patients receiving VitaminD2 supplementation, results that are subtherapeutic shouldbe confirmed with another method such as LC-MS/MS. Blood Venous blood specimen / Unknown 07/30/2025 11:26 AM EST 07/30/2025 1:42 PM EST us Tay Name LAB BLOOD ORDERABLES Final Resul t [facility] [address] [place] [phone] * (ABNORMAL) CBC auto differential (07/30/2025 11:26 AM EST) White Blood Count 5.6 4.8 - 10.8 X10*3/uL [facility] Red Blood Count 4.12(L) 4.20 - 5.50 X10*6/uL [facility] Hemoglobin 12.4 12.0 - 16.0 g/dl [facility] Hematocrit 37.0 37.0 - 47.0 % [facility] Mean Corpuscular Volume 89.8 80.0 - 98.0 fL [facility] Mean Corpuscular Hemoglobin 30.1 27.0 - 33.0 pg [facility] Mean Corpuscular HGB Conc 33.5 31.0 - 35.0 g/dl [facility] Red Cell Distribution Width 12.5 11.0 - 16.0 % [facility] Platelet Count 227 160 - 400 X10*3/uL [facility] Mean Platelet Volume 10.7 9.4 - 12.3 fL [facility] Neutrophils Percent Auto 58.3 45 - 73 % [facility] Imm Gran Pct Auto 0.2 0.0 - 0.4 % [facility] Lymphocytes Percent Auto 33.7 20 - 40 % [facility] Monocytes Percent Auto 6.1 2 - 11 % [facility] Eosinophils Percent Auto 1.2 0 - 4 % [facility] Basophils Percent Auto 0.5 0 - 2 % [facility] NRBC Pct Auto 0.0 0.0 - 0.2 /100WBC [facility] Neutrophils Absolute Auto 3.3 2.0 - 8.3 x10*3/uL [facility] Imm Gran Abs Auto 0.01 0.00 - 0.03 X10*3/uL [facility] Lymphocytes Absolute Auto 1.9 1.2 - 4.9 X10*3/uL [facility] Monocytes Absolute Auto 0.3 0.1 - 1.2 X10*3/uL [facility] Eosinophils Absolute Auto 0.1 0.0 - 0.4 X10*3/uL [facility] Basophils Absolute Auto 0.0 0.0 - 0.2 X10*3/uL [facility] NRBC Abs Auto 0.000 0.0 - 0.012 X10*3/uL [facility] Blood Venous blood specimen / Unknown 07/30/2025 11:26 AM EST 07/30/2025 1:42 PM EST us Tay Name LAB BLOOD ORDERABLES Final Resul t [facility] [address] [place] [phone] * (ABNORMAL) Lipid Panel, Standard (07/30/2025 11:26 AM EST) Triglycerides 89 <150 mg/dL [facility] Comment:Desirable Triglyceri de: less than 150 mg/dLBorderline High Triglyceride 150-199 mg/dLHigh Triglyceride: 200-499 mg/dLVery High Triglyceride: greater than or equal to 5OO mg/dL Cholesterol 195 <200 mg/dL [facility] Comment:Desirable Cholestero l: less than 200 mg/dLBorderline High Cholesterol: 200-239 mg/dLHigh Cholesterol: greater than 239 mg/dL LDL Cholesterol Calculated 120(H) <100 mg/dL [facility] Comment:Desirable LDL: less than 100 mg/dLNear Optimal/Above Optimal LDL: 110- 129 mg/dLBorderline High LDL: 130-159 mg/dLHigh LDL: 160-189 mg/dLVery High LDL: greater than or equal to 190 mg/dL HDL Cholesterol 58 >40 mg/dL [facility] Comment:Desirable HDL: great er than 40 mg/dL Note: This HDL assay may give artificially low results in patients with liver disease. Blood Venous blood specimen / Unknown 07/30/2025 11:26 AM EST 07/30/2025 1:42 PM EST us Tay Valverde MD LAB BLOOD ORDERABLES Final Resul t Performing Organization Address [facility] Co de Phone Number [facility] [address] [place] [phone] * TSH W/Reflex to FT4 (07/30/2025 11:26 AM EST) TSH reflex Free T4 1.24 0.32 - 4.0 uIU/mL [facility] Blood Venous blood specimen / Unknown 07/30/2025 11:26 AM EST 07/30/2025 1:42 PM EST us Tay Valverde MD LAB BLOOD ORDERABLES Final Resul t Performing Organization Address [facility] de Phone Number [facility] [address] [place] [phone] * (ABNORMAL) Comprehensive Metabolic Panel (07/30/2025 11:26 AM EST) Sodium 139 135 - 145 mmol/L [facility] Potassium 4.3 3.3 - 5.1 mmol/L [facility] Chloride 110(H) 96 - 108 mmol/L [facility] Carbon Dioxide 24 22 - 29 mmol/L [facility] Anion Gap 9(L) 12 - 20 [facility] Urea Nitrogen (BUN) 15 9 - 16 mg/dL [facility] Creatinine, Serum 0.74 0.5 - 1.4 mg/dL [facility] Estimated Glomerular Filt Rate >60 [facility] Comment:Chronic Kidney Disea se: Estimated GFR < 60 mL/min/1.86n3Szefbs Kidney Disease: Estimated GFR < 15 mL/min/1.73m2 Glucose 101 60 - 115 mg/dL [facility] Calcium 8.6 8.4 - 10.2 mg/dL [facility] Bilirubin, Total 0.4 0.0 - 1.0 mg/dL [facility] Aspartate Amino Transferase 24 5 - 31 U/L [facility] Alanine Aminotransferase 23 0 - 31 U/L [facility] Total Protein 6.7 6.5 - 8.0 g/dL [facility] Albumin Level 4.4 3.5 - 5.0 g/dL [facility] Alkaline Phosphatase 72 39 - 117 U/L [facility] Blood Venous blood specimen / Unknown 07/30/2025 11:26 AM EST 07/30/2025 1:42 PM EST us Tay Valverde MD LAB BLOOD ORDERABLES Final Resul t Performing Organization Address City/State/[facility] Co de Phone Number [facility] [address] [place] [phone] documented in this encounter Visit Diagnoses Diagnosis PE (physical exam), routine- Primary Encounter for immunization Screening for diabetes mellitus Screening for cholesterol level Screening examination for STI Screening for colon cancer Special screening for malignant neoplasms, colon documented in this encounter Additional Health Concerns Assessment Noted Time PHQ-9 Depression Total Score: 4 07/25/20 25 10:32 AM EST documented as of this encounter Care Teams Lay Out Machine Operator Relationship Specialty Start Date End Date Name, MD Tay [address] [place] [phone] PCP - General Family Medicine 02/01/16 documented as of this encounter
[2025-07-30 13:46] LABS: MANUAL DIFF FLAG NO
[2025-07-30 13:56] LABS: Hematocrit 37.0 % (37.0-47.0); Hemoglobin 12.4 g/dl (12.0-16.0); Imm Gran Abs Auto 0.01 X10*3/uL (0.00-0.03); Imm Gran Pct Auto 0.2 % (0.0-0.4); Lymphocytes Absolute Auto 1.9 X10*3/uL (1.2-4.9); Mean Corpuscular HGB Conc 33.5 g/dl (31.0-35.0); Mean Corpuscular Hemoglobin 30.1 pg (27.0-33.0); Mean Corpuscular Volume 89.8 fL (80.0-98.0); NRBC Abs Auto 0.000 X10*3/uL (0.0-0.012); NRBC Pct Auto 0.0 /100WBC (0.0-0.2); Platelet Count 227 X10*3/uL (160-400); Red Blood Count 4.12 X10*6/uL (4.20-5.50); White Blood Count 5.6 X10*3/uL (4.8-10.8)
[2025-07-30 14:56] LABS: Alanine Aminotransferase 23 U/L (0-31); Albumin Level 4.4 g/dL (3.5-5.0); Alkaline Phosphatase 72 U/L (39-117); Anion Gap 9 (12-20); Aspartate Amino Transferase 24 U/L (5-31); Blood Urea Nitrogen 15 mg/dL (9-16); Calcium 8.6 mg/dL (8.4-10.2); Carbon Dioxide 24 mmol/L (22-29); Chloride 110 mmol/L (96-108); Cholesterol 195 mg/dL (<200); Estimated Glomerular Filt Rate > 60; HDL Cholesterol 58 mg/dL (>40); Potassium 4.3 mmol/L (3.3-5.1); Sodium 139 mmol/L (135-145); Total Protein 6.7 g/dL (6.5-8.0); Triglycerides 89 mg/dL (<150)
--- OUTSIDE RECORDS SUMMARY | 2025-07-30 22:22 | XMS_ITS | Encounter Summary ---
Author Organization [employer] Address [address] [place] [address] Care Team Providers Care Tube Mounter Name Role Phone Name, Tay DUARTE Primary Care Provider [phone] Encounter Details Date Type Department Care Team (Latest Contact Info) Description 07/25/2025 Travel Social History Tobacco Use Types Packs/Day Years [...] AM EDT documented as of this encounter Functional Status * Over the past 2 weeks, how often have you been bothered by any of the following problems? Question Answer Date of Assessment Author Patient Health Questionnaire-2 Score 1 07/12 10:32 AM Marv Silverio MA * Little interest or pleasure in doing things Answer Date of Assessment Author Not at all 07/25/2025 10:32 AM Edwina Silverio MA * Feeling down, depressed, or hopeless Answer Date of Assessment Author Several days 07/25/2025 10:32 AM Edwina Silverio MA * Trouble falling or staying asleep, or sleeping too much Answer Date of Assessment Author Several days 07/25/2025 10:32 AM Edwina Silverio MA * Feeling tired or having little energy Answer Date of Assessment Author Several days 07/25/2025 10:32 AM Edwina Silverio MA * Poor appetite or overeating Answer Date of Assessment Author Not at all 07/25/2025 10:32 AM Edwina Silverio MA * Feeling bad about yourself - or that you are a failure or have let yourself or your family down Answer Date of Assessment Author Several days 07/25/2025 10:32 AM Edwina Silverio MA * Trouble concentrating on things, such as reading the newspaper or watching television Answer Date of Assessment Author Not at all 07/25/2025 10:32 AM Edwina Silverio MA * Moving or speaking so slowly that other people could have noticed? Or the opposite - being so fidgety or restless that you have been moving around a lot more than usual. Answer Date of Assessment Author Not at all 07/25/2025 10:32 AM Edwina Silverio MA * Thoughts that you would be [...] Blunt MA documented as of this encounter Plan of Treatment Upcoming Encounters Date Type Department Care Team (Late st Contact Info) Description 08/22/2025 4:00 PM EST Office Visit [facility] [address] [place] [phone] Chanel Almaraz MD [address] [place] [address] 08/28/2025 2:00 PM EST Office Visit [facility] OPTOMETRY [address] [place] [address] Carrie Rico, OD [address] [place] [address] 10/29/2025 11:30 AM EST Office Visit [facility] [address] [place] [phone] Name, MD Tay [address] [place] [phone] documented as of this encounter Visit Diagnoses Not on filedocumented in this encounter Additional Health Concerns Assessment Noted Time PHQ-9 Depression Total Score: 4 07/25/20 25 10:32 AM EST documented as of this encounter Care Teams Tube Mounter Relationship Specialty Start Date End Date Name, MD Tay [address] [place] [phone] PCP - General Family Medicine 02/01/16 documented as of this encounter
--- OUTSIDE RECORDS SUMMARY | 2025-07-30 22:22 | XMS_ITS | Encounter Summary ---
Author Organization [employer] Address [address] [place] [address] Care Team Providers Care Wind Farm Support Specialist Name Role Phone Name, Tay DUARTE Primary Care Provider [phone] Encounter Details Date Type Department Care Team ([facility] st Contact Info) Description 06/24/2025 Results Follow-Up [facility] [address] [place], [place] [phone] Name, MD Tay [address] [place] [address] [place] Thyroid Social History Tobacco Use Types Packs/Day Years [...] Description 08/22/2025 4:00 PM EST Office Visit [facility] [address] [place] [phone] Chanel Almaraz MD [address] [place] [phone] 08/28/2025 2:00 PM EST Office Visit [facility] OPTOMETRY [address] [place] [phone] Carrie Rico, OD [address] [place] [address] 10/29/2025 11:30 AM EST Office Visit [facility] [address] [place] [phone] Tay Valverde MD [address] [place] [phone] documented as of this encounter Visit Diagnoses Not on filedocumented in this encounter Additional Health Concerns Assessment Noted Time PHQ-9 Depression Total Score: 8 05/31/20 24 3:07 PM EDT documented as of this encounter Care Teams Wind Farm Support Specialist Relationship Specialty Start Date End Date Tay Valverde MD [address] [place] [phone] PCP - General Family Medicine 02/01/16 documented as of this encounter
--- OUTSIDE RECORDS SUMMARY | 2025-07-30 22:22 | XMS_ITS | Encounter Summary ---
Author Organization [employer] Address [address] [place] [address] 7t [place] [address] Care Team Providers Care Vision Therapist Name Role Phone Name, Tay DUARTE Primary Care Provider Encounter Details Date Type Department Care Team (Latest Contact Info) Description 04/13/2021 Abstract [facility] CONVERSIONS Dental, Provider, DDS Social History [...] Description 08/22/2025 4:00 PM EST Office Visit [facility] MEDICINE [address] [place] [phone] Chanel Almaraz MD [address] [place] [address] 08/28/2025 2:00 PM EST Office Visit [facility] OPTOMETRY [address] [place] [address] Carrie Rico OD [address] [place] [address] 10/29/2025 11:30 AM EST Office Visit [facility] MEDICINE [address] [place] [phone] Name, MD Tay [address] [place] [address] documented as of this encounter Visit Diagnoses Not on filedocumented in this encounter Care Teams Vision Therapist Relationship Specialty Start Date End Date Name, MD Tay [address] [facility] [place] [address] PCP - General Family Medicine 02/01/16 documented as of this encounter
--- OUTSIDE RECORDS SUMMARY | 2025-07-30 22:22 | XMS_ITS | Encounter Summary ---
Author Organization [employer] Address [address] [facility] 7t [place] [address] Care Team Providers Care Lead Applications Developer Name Role Phone Name, Tay DUARTE Primary Care Provider [phone] Encounter Details Date Type Department Care Team ([facility] st Contact Info) Description 10/18/[address] [facility] MEDICINE [address] [place], [place] [phone] Name, MD Tay [address] [place] [address] Social History Tobacco Use Types Packs/Day Years [...] Description 08/22/2025 4:00 PM EST Office Visit [facility] MEDICINE [address] [place] [address] Chanel Almaraz MD [address] [place] [address] 08/28/2025 2:00 PM EST Office Visit [facility] OPTOMETRY [address] [place] [address] Carrie Rico, OD [address] [place] [address] 10/29/2025 11:30 AM EST Office Visit [facility] MEDICINE [address] [place] [phone] NameTay MD [address] [place] [address] documented as of this encounter Visit Diagnoses Not on filedocumented in this encounter Care Teams Lead Applications Developer Relationship Specialty Start Date End Date NameTay MD [address] [place] [address] PCP - General Family Medicine 02/01/16 documented as of this encounter
--- OUTSIDE RECORDS SUMMARY | 2025-07-30 22:22 | XMS_ITS | Encounter Summary ---
Author Organization [employer] Address [address] [place] [address] 7t [place] [address] Care Team Providers Care Aviation Technical Systems Specialist Name Role Phone Name, Tay DUARTE Primary Care Provider [phone] Encounter Details Date Type Department Care Team (Late st Contact Info) Description 10/17/2022 Orders Only [facility] MED & PEDS [address] [place] [address] Lilian Rodriguez LPN Social History Tobacco Use [...] EST Office Visit [facility] MEDICINE [address] [place] [phone] Chanel Almaraz MD [address] [place] [address] 08/28/2025 2:00 PM EST Office Visit [facility] OPTOMETRY [address] [place] [address] Carrie Rico, OD [address] [place] [address] 10/29/2025 11:30 AM EST Office Visit [facility] MEDICINE [address] [place] [address] Name, MD Tay [address] [place] [address] documented as of this encounter Visit Diagnoses Not on filedocumented in this encounter Care Teams Aviation Technical Systems Specialist Relationship Specialty Start Date End Date Name, MD Tay [address] [place] [address] PCP - General Family Medicine 02/01/16 documented as of this encounter
--- OUTSIDE RECORDS SUMMARY | 2025-07-30 22:22 | XMS_ITS | Encounter Summary ---
Author Organization [employer] Address [address] [place] [address] 7[address] [place] [address] Care Team Providers Care Lead Housekeeper Name Role Phone Name, Tay DUARTE Primary Care Provider [phone] Reason for Visit * Reason Comments Med Refill Encounter Details Date Type Department Care Team (Late Contact Info) Description 01/19/2023 Refill [facility] [address] [place] [address] Name, MD Tay [address] [place] [address] [phone] Social History Tobacco Use Types Packs/Day Years [...] Encounters Date Type Department Care Team (Late Contact Info) Description 08/22/2025 4:00 PM EST Office Visit [facility] [address] [place] [phone] Chanel Almaraz MD [address] [place] [address] 08/28/2025 2:00 PM EST Office Visit [facility]ET[facility] [address] [place] [address] Zainabivelisse Carrie, OD [address] [place] [address] 10/29/2025 11:30 AM EST Office Visit [facility] [address] [place] [address] Name, MD Tay [address] [place] [address] documented as of this encounter Visit Diagnoses Not on filedocumented in this encounter Care Teams Lead Housekeeper Relationship Specialty Start Date End Date Name, MD Tay [address] [place] [phone] PCP - General Family Medicine 02/01/16 documented as of this encounter
--- OUTSIDE RECORDS SUMMARY | 2025-07-30 22:23 | XMS_ITS | Clinical Summary ---
Author Organization [employer] Address [address] [place] [address] [address] [place] [address] Care Team Providers Care Central Supply Supervisor Name Role Phone Name, Tay DUARTE Primary Care Provider [phone] Allergies No known active allergies Medications traZODone [...] after a meal 36 tablet 3 Active triamcinolone (Kenalog) 0.1 % creamIndication s:Nummular dermatitis,Hand dermatitis Apply topically if needed in the morning and at bedtime (pain and swelling). Mix with Cerave 80 g 2 4 Active cyclobenzaprine (Flexeril) 10 MG tablet Take 1 tablet (10 mg) by mouth every 8 (eight) hours. 90 tablet 5 Active celecoxib (CeleBREX) 200 MG capsule TAKE 1 CAPSULE(200 MG) BY MOUTH TWICE DAILY 60 capsule 5 Active DULoxetine (Cymbalta) [address] capsule TAKE 1 CAPSULE BY MOUTH EVERY DAY. DO NOT CRUSH OR CHEW. 30 capsule 11 5 Active valACYclovir (Valtrex) 500 MG tablet TAKE 1 TABLET BY MOUTH TWICE DAILY FOR 3 DAYS 6 tablet 5 5 Active pantoprazole (ProtoNix) 40 MG EC tabletIndicatio ns:Pes anserinus bursitis of left knee TAKE 1 TABLET BY MOUTH EVERY DAY. DO NOT CRUSH, CHEW OR SPLIT. 90 tablet 3 5 Active cholecalciferol (Vitamin D3) 25 MCG (1000 UT) tablet TAKE 1 TABLET BY MOUTH EVERY MORNING 90 tablet 3 5 Active Multiple Vitamin (multivitamin) tablet TAKE 1 TABLET BY MOUTH EVERY DAY 90 tablet 3 5 Active Active Problems [...] Encounters Date Type Department Care Team Description 07/25/2025 10:30 AM EST Office Visit [address] [address] Name, MD Tay PE (physical exam), routine (Primary Dx); Encounter for immunization; Screening for diabetes mellitus; Screening for cholesterol level; Screening examination for STI; Screening for colon cancer 07/25/2025 Travel 07/24/[address] [address] Tay Valverde MD chartprep 07/21/2025 Travel 07/18/2025 Patient Outreach [facility] [address] [place] [address] Tay Valverde MD Pre-visit Planning ([facility] unable to reach [facility] ) 06/24/2025 Results Follow-Up [address] [address] Tay Valverde MD Thyroid 05/26/2025 11:30 AM EDT Office Visit [facility] [address] [place] [phone] Carrie Rico, OD Viral conjunctivitis of both eyes (Primary Dx) 05/26/2025 Travel 05/20/[address] [address] Tay Valverde MD 05/19/2025 11:30 AM EDT Office Visit [facility] [address] [place] [phone] Carrie Rico, OD Viral conjunctivitis of both eyes (Primary Dx) 05/19/[address] [address] Tay Valverde MD telephone call 05/19/2025 Travel 05/13/2025 11:30 AM EDT Office Visit [facility] [address] [place] [address] Carrie Rico, OD Viral conjunctivitis of both eyes (Primary Dx) 05/13/2025 Travel 05/09/2025 11:30 AM EDT Office Visit [facility] [address] [place] [phone] Carrie Rico, OD Viral conjunctivitis of both eyes (Primary Dx) 05/09/2025 Orders Only [address] [address] Tay Valverde MD 05/09/2025 Travel 05/06/2025 11:00 AM EDT Office Visit [facility] [address] [place] [address] Tay Valverde MD Cyst of right breast (Primary Dx); Thyroid nodule; Acute bacterial conjunctivitis of right eye; Vaginal yeast infection 05/06/2025 Travel 05/05/2025 10:00 AM EDT Office Visit [facility] [address] [place] [address] Carrie Rico, OD Viral conjunctivitis of both eyes (Primary Dx) 05/05/2025 Telephone [facility] [address] [place] [address] Massimo Maradiaga MA chart prep 05/05/2025 Travel 05/01/2025 10:45 AM EDT Office Visit [facility] [address] [place] [address] Carrie Rico, OD Viral conjunctivitis of right eye (Primary Dx); Preseptal cellulitis of right eye 05/01/2025 Travel 04/30/2025 5:20 PM EDT Office Visit [facility] [address] [place] [address] Mónica Naik MD Acute bacterial conjunctivitis of right eye (Primary Dx) 04/30/2025 Travel from Last 3 Months Immunizations Immunization Administration Dates Next Due Influenza injectable quadriv alent preservative free 07/05/2023,06/28/2022,08/24/2021,2020,07/17/2019 Influenza, IIV3, injectable 11/19/2014, 2 Influenza, seasonal, injecta ble, preservative free 07/25/2025,05/31/2024 Pfizer Covid-19 Vaccine 12+ 12/29/2020 Pfizer Covid-19 Vaccine 12+ carmen-sucrose (Blanton Cap) 01/19/2021,12/29/2020 Tdap 07/05/2023,06/20/2012 Family History Medical History Relation Name Comments aicardi syndrome Daughter No Known Problems Father Asthma Mother Dementia Mother Diabetes Mother Hyperlipidemia Mother No Known Problems Sister OCD Son Relation Name Status Comments Daughter Father Mother Sister Son Social History Tobacco Use Types Packs/Day Years [...] 16 07/25/2025 10:29 AM EST Oxygen Saturation 99% 05/06/2025 10:58 AM EDT Inhaled Oxygen Concentration - - Weight 87.3 kg (192 lb 6.4 oz) 07/25/2025 10:29 AM EST Height 162.6 cm (5' 4 ) 07/25/2025 10:29 AM EST Body Mass Index 33.03 07/25/2025 10:29 AM EST Plan of Treatment Upcoming Encounters Date Type Department Care Team (Late st Contact Info) Description 08/22/2025 4:00 PM EST Office Visit [facility] [address] [place] [phone] Chanel Almaraz MD [address] [place] [address] 08/28/2025 2:00 PM EST Office Visit [facility] [address] [place] [address] TarkaCarrie, OD [address] [place] [address] 10/29/2025 11:30 AM EST Office Visit [facility] [address] [place] [phone] Name, MD Tay [address] [place] [address] Health Maintenance Due Date Last Done Comments CT Colonography 1979 Colonoscopy 1979 Dental X-Ray: Full Mouth 1979 04/13/2021 FIT DNA/Cologuard 1979 HIV Screening 1980 Sigmoidoscopy 1979 Family Planning (PISQ) 1994 Hepatitis B Vaccines (1 of 3 - 19+ 3-dose series) 1998 Dental Oral Exam 06/16/2023 12/14/2022 Dental Prophylaxis 06/16/2023 12/14/2022 Colorectal Cancer Screening 08/10/2023 FIT 08/10/2023 08/10/2022, 08/10/2022 FOBT 08/10/2023 08/10/2022 Dental X-Ray: Bitewings 12/16/2023 12/14/2022 Pap Smear 10/01/2024 10/01/2021 COVID-19 Vaccine ( season) 2025 01/19/2021, 12/29/2020, 12/29/2020 Alcohol/Substance Use Screening 10/01/2025 10/01/2024 SDOH Screening 05/06/2026 05/06/2025 Mammogram 06/13/2026 06/13/2025, 11/2024, 10/09/2024, Additional history exists Disability Screening 07/21/2026 07/21/2025 Depression Screening 07/25/2026 07/25/2025, 07/25/20 Tobacco Screening 07/25/2026 07/25/2025 Cervical Cancer Screening 10/01/2026 HPV/Cotest 10/01/2026 10/01/2021 Zoster Vaccines (1 of 2) 2029 DTaP/Tdap/Td Vaccines (3 - Td or Tdap) 07/05/2033 07/05/2023, 06/20/2012 RSV Patients and Patients Aged 60 years or older (1 - 1-dose 75+ series) 2054 Hepatitis C Screening Completed 06/28/2022 Influenza Vaccine Completed 07/25/2025, , 07/05/2023, Additional history exists HIB Vaccines Aged Out [...] 11:26 AM EST PE (physical exam), routine CBC WITH AUTO DIFFERENTIAL Routine 07/30/2025 11:26 AM EST PE (physical exam), routine LIPID PANEL, STANDARD Routine 07/30/2025 11:26 AM EST Screening for cholesterol level TSH W/REFLEX TO FT4 Routine 07/30/2025 1 1:26 AM EST PE (physical exam), routine COMPREHENSIVE METABOLIC PANEL Routine 07/30/2025 11:26 AM EST Screening for diabetes mellitus US THYROID Routine 06/23/2025 2:37 PM EDT Thyroid nodule BI US BREAST LIMITED RIGHT Routine 06/13/2025 10:25 AM EDT BI MAMMOGRAM DIAGNOSTIC TOMOSYNTHESIS BILATERAL Routine 06/13/2025 10:06 AM EDT Cyst of right breast PERIODIC ORAL EVALUATION - ESTABLISHED PATIENT Routine [...] Recently Relevant to Health Maintenance Results * Vitamin D, 25-Hydroxy, Total, Immunoassay (07/30/2025 11:26 AM EST) Vitamin D 25-OH Total 33.1 >30 ng/mL [facility] Comment: Health Based Reference Values*< 20 ng/mL [id number] ng/mL Insufficient> 30 ng/mL Sufficient*Rehana STALLINGS. N [...] MD LAB BLOOD ORDERABLES Final Resul t [facility] [address] [place] [phone] * TSH W/Reflex to FT4 (07/30/2025 11:26 AM EST) TSH reflex Free T4 1.24 0.32 - 4.0 uIU/mL [facility] Blood Venous blood specimen / Unknown 07/30/2025 11:26 AM EST 07/30/2025 1:42 PM EST us Tay Name MD LAB BLOOD ORDERABLES Final Resul t [facility] [address] [place], [place] [phone] * (ABNORMAL) CBC auto differential (07/30/2025 11:26 AM EST) White Blood Count 5.6 4.8 - 10.8 X10*3/uL [facility] Red Blood Count 4.12(L) 4.20 - 5.50 X10*6/uL [facility] Hemoglobin 12.4 12.0 - 16.0 g/dl [facility] Hematocrit 37.0 37.0 - 47.0 % [facility] Mean Corpuscular Volume 89.8 80.0 - 98.0 fL [facility] Mean Corpuscular Hemoglobin 30.1 27.0 - 33.0 pg [facility] Mean Corpuscular HGB Conc 33.5 31.0 - 35.0 g/dl [facility] Red Cell Distribution Width 12.5 11.0 - 16.0 % [facility] Platelet Count 227 160 - 400 X10*3/uL [facility] Mean Platelet Volume 10.7 9.4 - 12.3 fL [facility] Neutrophils Percent Auto 58.3 45 - 73 % [facility] Imm Gran Pct Auto 0.2 0.0 - 0.4 % [facility] Lymphocytes Percent Auto 33.7 20 - 40 % [facility] Monocytes Percent Auto 6.1 2 - 11 % [facility] Eosinophils Percent Auto 1.2 0 - 4 % [facility] Basophils Percent Auto 0.5 0 - 2 % [facility] NRBC Pct Auto 0.0 0.0 - 0.2 /100WBC [facility] Neutrophils Absolute Auto 3.3 2.0 - 8.3 x10*3/uL [facility] Imm Gran Abs Auto 0.01 0.00 - 0.03 X10*3/uL [facility] Lymphocytes Absolute Auto 1.9 1.2 - 4.9 X10*3/uL [facility] Monocytes Absolute Auto 0.3 0.1 - 1.2 X10*3/uL [facility] Eosinophils Absolute Auto 0.1 0.0 - 0.4 X10*3/uL [facility] Basophils Absolute Auto 0.0 0.0 - 0.2 X10*3/uL [facility] NRBC Abs Auto 0.000 0.0 - 0.012 X10*3/uL [facility] Blood Venous blood specimen / Unknown 07/30/2025 11:26 AM EST 07/30/2025 1:42 PM EST us Tay Name LAB BLOOD ORDERABLES Final Resul t [facility] [address] [place] [phone] * (ABNORMAL) Lipid Panel, Standard (07/30/2025 11:26 AM EST) Triglycerides 89 <150 mg/dL [facility] Comment:Desirable Triglyceri de: less than 150 mg/dLBorderline High Triglyceride 150-199 mg/dLHigh Triglyceride: 200-499 mg/dLVery High Triglyceride: greater than or equal to 5OO mg/dL Cholesterol 195 <200 mg/dL [facility] Comment:Desirable Cholestero l: less than 200 mg/dLBorderline High Cholesterol: 200-239 mg/dLHigh Cholesterol: greater than 239 mg/dL LDL Cholesterol Calculated 120(H) <100 mg/dL [facility] Comment:Desirable LDL: less than 100 mg/dLNear Optimal/Above Optimal LDL: 110- 129 mg/dLBorderline High LDL: 130-159 mg/dLHigh LDL: 160-189 mg/dLVery High LDL: greater than or equal to 190 mg/dL HDL Cholesterol 58 >40 mg/dL [facility] Comment:Desirable HDL: great er than 40 mg/dL Note: This HDL assay may give artificially low results in patients with liver disease. Blood Venous blood specimen / Unknown 07/30/2025 11:26 AM EST 07/30/2025 1:42 PM EST us Tay Valverde MD LAB BLOOD ORDERABLES Final Resul t Performing Organization Address City/[facility]/ZIP Co de Phone Number [facility] [address] [place] [address] [phone] * (ABNORMAL) Comprehensive Metabolic Panel (07/30/2025 11:26 AM EST) Sodium 139 135 - 145 mmol/L [facility] Potassium 4.3 3.3 - 5.1 mmol/L [facility] Chloride 110(H) 96 - 108 mmol/L [facility] Carbon Dioxide 24 22 - 29 mmol/L [facility] Anion Gap 9(L) 12 - 20 [facility] Urea Nitrogen (BUN) 15 9 - 16 mg/dL [facility] Creatinine, Serum 0.74 0.5 - 1.4 mg/dL [facility] Estimated Glomerular Filt Rate >60 [facility] Comment:Chronic Kidney Disea se: Estimated GFR < 60 mL/min/[id number] Kidney Disease: Estimated GFR < 15 mL/min/1.73m2 Glucose 101 60 - 115 mg/dL [facility] Calcium 8.6 8.4 - 10.2 mg/dL [facility] Bilirubin, Total 0.4 0.0 - 1.0 mg/dL [facility] Aspartate Amino Transferase 24 5 - 31 U/L [facility] Alanine Aminotransferase 23 0 - 31 U/L [facility] Total Protein 6.7 6.5 - 8.0 g/dL [facility] Albumin Level 4.4 3.5 - 5.0 g/dL [facility] Alkaline Phosphatase 72 39 - 117 U/L [facility] Blood Venous blood specimen / Unknown 07/30/2025 11:26 AM EST 07/30/2025 1:42 PM EST us Tay Valverde MD LAB BLOOD ORDERABLES Final Resul t [facility] [address] [place] [phone] * US Thyroid (06/23/2025 2:37 PM EDT) Anatomical Region Laterality Modality Head, Neck Ultrasound 06/23/2025 2:37 PM EDT Narrative 06/23/2025 2:39 PM EDT [address] [address] Ultrasound Report Signed Patient: Omaira Yung MR#: [id number] : 1980 Acct:[id number] Age/Sex: 45 / F ADM Date: 06/23/25 Loc: HO.US Attending Dr: Tay Valverde MD Ordering Physician: Tay Valverde MD Date of Service: 06/23/25 Procedure(s): US thyroid Accession Number(s): [id number] cc: Tay Valverde MD Reason for Exam: thyroid nodule CLINICAL HISTORY: thyroid nodule US Thyroid Comparison: None provided Findings: The thyroid parenchyma is normal echotexture. Right thyroid 6.3 x 1.6 x 1.7 cm. Left thyroid 5.3 x 1.4 x 1.3 cm. Thyroid isthmus 5 mm. There is a 9 mm cyst within the right lobe of the thyroid gland. This is not suspicious and does not require follow-up. There are no suspicious thyroid nodules. There is a 1.8 x 0.6 x 0.7 cm lymph node within the soft tissues of the left side of the neck and there is a 2.1 x 0.5 x 0.4 cm lymph node within the soft tissues of the right side of the neck. Both lymph nodes are normal morphology and contain fatty katja. These are most compatible with inflammatory lymph nodes. Impression: 1. There is no suspicious thyroid nodule. [employer] TI-RADS Categories TR1 and TR2 nodules do not have follow-up recommendations TR3 (FNA >= 2.5cm, F/U >= 1.5cm at 1, 3, and 5 yrs) TR4 (FNA >= 1.5cm, F/U >= 1cm at 1, 2, 3, and 5 yrs) TR5 (FNA >= 1cm, F/U >= 0.5cm annually for up to 5 yrs) This document has been electronically signed by: Tammy Alfaro MD on 06/23/2025 14:37:44 Dictated By: Tammy Alfaro MD Signed By: <Electronically signed by Tammy Alfaro MD in OV> 06/23/25 1438 DD/ 36 TD/TT: 06/23/251436 Blower Operator: Procedure Note Donotuseinterpreter, Image - 06/23/2025 [place] [address] Ultrasound Report Signed Patient: Omaira Yung KMR#: [id number] : 1980Acct:[id number] Age/Sex: 45 / FADM Date: 06/23/25 Loc: HO.US Attending Dr: Tay Valverde MD Ordering Physician: Tay Valverde MD Date of Service: 06/23/25 Procedure(s): US thyroid Accession Number(s): [id number] cc: Tay Valverde MD Reason for Exam: thyroid nodule CLINICAL HISTORY: thyroid nodule US Thyroid Comparison: None provided Findings: The thyroid parenchyma is normal echotexture. Right thyroid 6.3 x 1.6 x 1.7 cm. Left thyroid 5.3 x 1.4 x 1.3 cm. Thyroid isthmus 5 mm. There is a 9 mm cyst within the right lobe of the thyroid gland. This is not suspicious and does not require follow-up. There are no suspicious thyroid nodules. There is a 1.8 x 0.6 x 0.7 cm lymph node within the soft tissues of the left side of the neck and there is a 2.1 x 0.5 x 0.4 cm lymph node within the soft tissues of the right side of the neck. Both lymph nodes are normal morphology and contain fatty katja. These are most compatible with inflammatory lymph nodes. Impression: 1. There is no suspicious thyroid nodule. [employer] TI-RADS Categories TR1 and TR2 nodules do not have follow-up recommendations TR3 (FNA >= 2.5cm, F/U >= 1.5cm at 1, 3, and 5 yrs) TR4 (FNA >= 1.5cm, F/U >= 1cm at 1, 2, 3, and 5 yrs) TR5 (FNA >= 1cm, F/U >= 0.5cm annually for up to 5 yrs) This document has been electronically signed by: Tammy Alfaro MD on 06/23/2025 14:37:44 Dictated By: Tammy Alfaro MD Signed By: <Electronically signed by Tammy Alfaro MD in OV> 06/23/251437 DD/ 36 TD/TT: 06/23/251436 Blower Operator: us Tay Valverde MD IMG US PROCEDURES Edited Result - Final * BI US Breast Limited Right (06/13/2025 10:25 AM EDT) Anatomical Region Laterality Modality Breast Right Ultrasound 06/13/2025 10:2 5 AM EDT Narrative 06/13/2025 12:38 PM EDT [facility]'[address] [place] [address] Ultrasound Report Signed Patient: Omaira Yung MR#: [id number] : 1980 Acct:[id number] Age/Sex: 45 / F ADM Date: 06/13/25 Loc: HO.MAMMO Attending Dr: Tay Valverde MD Ordering Physician: Tay Valverde MD Date of Service: 06/13/25 Procedure(s): US Breast RT Limited Mamm Only Accession Number(s): [id number] cc: Tay Valverde MD Reason for Exam: RT BR CYSTIC NODULE (SEEN ON CT-SCAN) EXAMINATION: MM DIAGNOSTIC DIGITAL BREAST TOMOSYNTHESIS, BILATERAL Limited right breast ultrasound. CLINICAL INFORMATION: Soft tissue nodule in the upper right breast middle to posterior depth on recent chest CT January 27, 2025. Diagnostic mammogram and ultrasound evaluation. COMPARISON: Mammography: Comparison is made with relevant prior exams. TECHNIQUE: Digital breast mammography with tomosynthesis is performed in both the craniocaudal and mediolateral oblique views along with computer-aided detection (CAD). FINDINGS: There are scattered areas of fibroglandular density. Bilateral scattered asymmetries are stable. There are no significant masses, abnormal calcifications, or other abnormalities. Targeted color Doppler ultrasound scanning from 9- 3:00 in the superior right breast demonstrates normal. Glandular breast tissue. There is no sonographic abnormal finding. Results are provided to the patient at time of visit by the technologist. US/US Breast RT Limited Mamm Only IMPRESSION: Left: Negative. Right: No mammographic or sonographic abnormal finding to account for the soft tissue/cystic area seen on chest CT January 27, 2025. This area likely represented an area of tissue overlap oval scattered asymmetries on mammography are stable. ASSESSMENT: BI-RADS Category 2: Benign RECOMMENDATION: 1 year F/U This patient's information was entered into a reminder system with a target due date for their next mammogram. Electronically signed by: Naomie Barnard DO 06/13/2025 12:35 PM EDT Dictated By: Naomie Barnard DO Signed By: <Electronically signed by Naomie Barnard DO in OV> 06/13/25 1235 DD/ 1025 TD/TT: 06/13/25 1042 Blower Operator: Procedure Note Donotuseinterpreter, Image - 06/13/2025 [facility] [address] [place], [place] [address] Ultrasound Report Signed Patient: Omaira Yung KMR#: [id number] : 1980Acct:[id number] Age/Sex: 45 / FADM Date: 06/13/25 Loc: HO.MAMMO Attending Dr: Tay Valverde MD Ordering Physician: Tay Valverde MD Date of Service: 06/13/25 Procedure(s): US Breast RT Limited Mamm Only Accession Number(s): [id number] cc: Tay Valverde MD Reason for Exam: RT BR CYSTIC NODULE (SEEN ON CT-SCAN) EXAMINATION: MM DIAGNOSTIC DIGITAL BREAST TOMOSYNTHESIS, BILATERAL Limited right breast ultrasound. CLINICAL INFORMATION: Soft tissue nodule in the upper right breast middle to posterior depth on recent chest CT January 27, 2025. Diagnostic mammogram and ultrasound evaluation. COMPARISON: Mammography: Comparison is made with relevant prior exams. TECHNIQUE: Digital breast mammography with tomosynthesis is performed in both the craniocaudal and mediolateral oblique views along with computer-aided detection (CAD). FINDINGS: There are scattered areas of fibroglandular density. Bilateral scattered asymmetries are stable. There are no significant masses, abnormal calcifications, or other abnormalities. Targeted color Doppler ultrasound scanning from 9- 3:00 in the superior right breast demonstrates normal. Glandular breast tissue. There is no sonographic abnormal finding. Results are provided to the patient at time of visit by the technologist. US/US Breast RT Limited Mamm Only IMPRESSION: Left: Negative. Right: No mammographic or sonographic abnormal finding to account for the soft tissue/cystic area seen on chest CT January 27, 2025. This area likely represented an area of tissue overlap oval scattered asymmetries on mammography are stable. ASSESSMENT: BI-RADS Category 2: Benign RECOMMENDATION: 1 year F/U This patient's information was entered into a reminder system with a target due date for their next mammogram. Electronically signed by: Naomie Barnard DO 06/13/2025 12:35 PM EDT Dictated By: Naomie Barnard DO Signed By: <Electronically signed by Naomie Barnard DO in OV> 06/13/25 1235 DD/ 1025 TD/TT: 06/13/25 1042 Blower Operator: us Tay Name MD PABLO US PROCEDURES Final Result * BI Mammogram Diagnostic Tomosynthesis Bilateral (06/13/2025 10:06 AM EDT) Anatomical Region Laterality Modality Breast Bilateral Mammography 06/13/2025 10:0 6 AM EDT Narrative 06/13/2025 12:38 PM EDT [facility] [address] [place] [address] Mammography Report Signed Patient: Omaira Yung MR#: [id number] : 1980 Acct:[id number] Age/Sex: 45 / F ADM Date: 06/13/25 Loc: HO.MAMMO Attending Dr: Tay Valverde MD Ordering Physician: Tay Valverde MD Results: 2Benign Date of Service: 06/13/25 Follow Up: 1 Year From Orig inal Mammogram Procedure(s): MM tomosynthesis diagnostic BI Accession Number(s): [id number] cc: Tay Valverde MD Reason For Exam: RT BR CYSTIC NODULE (SEEN ON CT-SCAN) EXAMINATION: MM DIAGNOSTIC DIGITAL BREAST TOMOSYNTHESIS, BILATERAL Limited right breast ultrasound. CLINICAL INFORMATION: Soft tissue nodule in the upper right breast middle to posterior depth on recent chest CT January 27, 2025. Diagnostic mammogram and ultrasound evaluation. COMPARISON: Mammography: Comparison is made with relevant prior exams. TECHNIQUE: Digital breast mammography with tomosynthesis is performed in both the craniocaudal and mediolateral oblique views along with computer-aided detection (CAD). FINDINGS: There are scattered areas of fibroglandular density. Bilateral scattered asymmetries are stable. There are no significant masses, abnormal calcifications, or other abnormalities. Targeted color Doppler ultrasound scanning from 9- 3:00 in the superior right breast demonstrates normal. Glandular breast tissue. There is no sonographic abnormal finding. Results are provided to the patient at time of visit by the technologist. MM/MM tomosynthesis diagnostic BI IMPRESSION: Left: Negative. Right: No mammographic or sonographic abnormal finding to account for the soft tissue/cystic area seen on chest CT January 27, 2025. This area likely represented an area of tissue overlap oval scattered asymmetries on mammography are stable. ASSESSMENT: BI-RADS Category 2: Benign RECOMMENDATION: 1 year F/U This patient's information was entered into a reminder system with a target due date for their next mammogram. Electronically signed by: Naomie Barnard DO 06/13/2025 12:35 PM EDT Dictated By: Naomie Barnard DO Signed By: <Electronically signed by Naomie Barnard DO in OV> 06/13/25 1235 DD/ 1006 TD/TT: 06/13/25 1011 Blower Operator: Procedure Note Donotuseinterpreter, Image - 06/13/2025 [facility] [address] [place], [place] [address] Mammography Report Signed Patient: Omaira Yung KMR#: [id number] : 1980Acct:[id number] Age/Sex: 45 / FADM Date: 06/13/25 Loc: HO.MAMMO Attending Dr: Tay Valverde MD Ordering Physician: Tay Valverde MDResults: 2Benign Date of Service: 06/13/25Follow Up: 1 Year From Orig inal Mammogram Procedure(s): MM tomosynthesis diagnostic BI Accession Number(s): [id number] cc: Name,Tay DUARTE Reason For Exam: RT BR CYSTIC NODULE (SEEN ON CT-SCAN) EXAMINATION: MM DIAGNOSTIC DIGITAL BREAST TOMOSYNTHESIS, BILATERAL Limited right breast ultrasound. CLINICAL INFORMATION: Soft tissue nodule in the upper right breast middle to posterior depth on recent chest CT January 27, 2025. Diagnostic mammogram and ultrasound evaluation. COMPARISON: Mammography: Comparison is made with relevant prior exams. TECHNIQUE: Digital breast mammography with tomosynthesis is performed in both the craniocaudal and mediolateral oblique views along with computer-aided detection (CAD). FINDINGS: There are scattered areas of fibroglandular density. Bilateral scattered asymmetries are stable. There are no significant masses, abnormal calcifications, or other abnormalities. Targeted color Doppler ultrasound scanning from 9- 3:00 in the superior right breast demonstrates normal. Glandular breast tissue. There is no sonographic abnormal finding. Results are provided to the patient at time of visit by the technologist. MM/MM tomosynthesis diagnostic BI IMPRESSION: Left: Negative. Right: No mammographic or sonographic abnormal finding to account for the soft tissue/cystic area seen on chest CT January 27, 2025. This area likely represented an area of tissue overlap oval scattered asymmetries on mammography are stable. ASSESSMENT: BI-RADS Category 2: Benign RECOMMENDATION: 1 year F/U This patient's information was entered into a reminder system with a target due date for their next mammogram. Electronically signed by: Naomie Barnard DO 06/13/2025 12:35 PM EDT Dictated By: Naomie Barnard DO Signed By: <Electronically signed by Naomie Barnard DO in OV> 06/13/25 1235 DD/ 1006 TD/TT: 06/13/25 1011 Blower Operator: us Tay Valverde MD IMG BI PROCEDURES Final Result * Fecal Globin by Immunochemistry (08/10/2022 12:00 AM EST) Fecal Globin By Immunochemistry SEE NOTE [employer] [place] [employer] Comment: FECAL GLOBIN BY IMMUNOCHEMISTRY Micro Number: [id number] Test Status: Final Specimen Source: Insure (tm) fobt test card Specimen Quality: Adequate Fecal Globin: Not Detected 08/10/2022 08/22/2022 11: 22 PM EST Narrative [facility] - 08/24/2022 12:35 PM EST FASTING: UNKNOWN us Tay Valverde MD LAB BODY FLUIDS AND STOOLS ORDER DANE Final Result Performing Organization Address [facility] de Phone Number [facility] [address], [facility] [place] [address] [employer] [place] [employer] [address], [place] [address] * HEPATITIS C AB W/REFL TO HCV [...] a test for HCV RNA (test code 40257) is suggested. For additional information please refer to http://education.ONE Change/faq/JCV86d5 (This link is being provided for informational/ educational purposes only.) 06/28/2022 10:0 6 AM EDT Result Arthur Valverde MD HISTORICAL/NON ORDERABLE LABS Fi nal Result CONVERTED LEGACY LABS * Hm Pap Smear (10/01/2021) Pap Negative for intraephithelial lesion or malignancy Negative for intraephithelial lesion or malignancy, Other HPV Undetected [facility] External Provider HEALTH MAINTENANCE Final Result from Last 3 Months or Most Recently Relevant to Health Maintenance Insurance [facility] C3 DENTAL-[facility] MEDICAID STAND ADULT Care Teams Central Supply Supervisor Relationship Specialty Start Date End Date Name, MD Tay [address] [place] [address] PCP - General Family Medicine 02/01/16
--- OUTSIDE RECORDS SUMMARY | 2025-07-30 22:23 | XMS_ITS | Encounter Summary ---
Author Organization [employer] Address [address] [place] [address] Care Team Providers Care Freight Handler Name Role Phone Name, Tay DUARTE Primary Care Provider [phone] Reason for Visit * Reason Onset Date Comments Med Change Request 10/18/2023 Encounter Details Date Type Department Care Team ([facility] st Contact Info) Description 10/18/2023 Telephone [facility] MEDICINE [address] [place] [address] Name, MD Tay [address] [place] [address] Med Change Request Social History Tobacco Use [...] the past 12 months, has t he [employer], gas, oil or water company threatened to [...] Description 08/22/2025 4:00 PM EST Office Visit [facility] MEDICINE [address] [place] [phone] Chanel Almaraz MD [address] [place] [address] 08/28/2025 2:00 PM EST Office Visit [facility] OPTOMETRY [address] [place] [phone] Carrie Rico, OD [address] [place] [address] 10/29/2025 11:30 AM EST Office Visit [facility] MEDICINE [address] [place] [phone] Name, MD Tay [address] [place] [address] documented as of this encounter Visit Diagnoses Not on filedocumented in this encounter Care Teams Freight Handler Relationship Specialty Start Date End Date Name, MD Tay [address] [place] [address] PCP - General Family Medicine 02/01/16 documented as of this encounter
--- OUTSIDE RECORDS SUMMARY | 2025-07-30 22:23 | XMS_ITS | Encounter Summary ---
Author Organization [employer] Address [address] [place] [address] Care Team Providers Care Quality Control Systems Manager Name Role Phone Name, Tay DUARTE Primary Care Provider [phone] Reason for Visit * Reason Comments Med Refill Encounter Details Date Type Department Care Team ([facility] st Contact Info) Description 10/18/[address] [facility] MEDICINE [address] [place] [address] Name, MD Tay [address] [place], [place] [phone] Social History Tobacco Use Types Packs/Day Years [...] 08/22/2025 4:00 PM EST Office Visit [facility] MEDICINE [address] [place] [phone] Chanel Almaraz MD [address] [place] [phone] 08/28/2025 2:00 PM EST Office Visit [facility] OPTOMETRY [address] [place] [address] Carrie Rico, OD [address] [place] [address] 10/29/2025 11:30 AM EST Office Visit [facility] MEDICINE [address] [place] [phone] Tay Valverde MD [address] [place] [phone] documented as of this encounter Visit Diagnoses Not on filedocumented in this encounter Care Teams Quality Control Systems Manager Relationship Specialty Start Date End Date Tay Valverde MD [address] [place] [phone] PCP - General Family Medicine 02/01/16 documented as of this encounter
[2025-07-31 09:06] LABS: HBS Num1 1.00 mIU/mL (0-7.99); HBsAGNum1 0.42 S/CO (0.00-0.99); HIV Num 1 0.05 S/CO (0.00-0.99); Hepatitis B Surface Antigen Negative (Negative); ~HepC Num1 0.07 S/CO (0.00-0.79); ~Hepatitis B Surface Antibody NONREACTIVE (Nonreactive); ~Hepatitis C Antibody Nonreactive (Nonreactive)
== END 2025-07-30 11:22 | disposition home or self-care (01) ==
LOC: HO.HHCL 11:21
PROVIDERS: PCP Internal Medicine Geriatric Medicine; Visit Provider Internal Medicine Geriatric Medicine
DX: Z00.00 Encounter for general adult medical examination without abnormal findings (principal); Z12.11 Encounter for screening for malignant neoplasm of colon; Z13.1 Encounter for screening for diabetes mellitus; Z13.220 Encounter for screening for lipoid disorders; Z11.59 Encounter for screening for other viral diseases
CPT/HCPCS: 36415; 80053; 80061; 82306; 84443; 85025; 86592; 86706; 86803; 87340; 87389